=== PATIENT | male | born 1955 | race Caucasian/White ===

== ENCOUNTER 2022-10-13 14:50 | Outpatient (OUT) | payer MEDICARE, SELFPAY ==
--- NOTE | 2022-10-13 | ECG_ITS ---
[facility] Test Date: 2022-10-13 Pat Name: ANTONIO ZEPEDA Department: Room: - Gender: Male [employer]: : 1955 Requested By: BENNETT ZIMMERMAN Order Number: [id number] Reading MD: NAZARIO CRAVEN Measurements Intervals [place] Rate: 82 P: NM: 160 QRS: -81 QRSD: 156 T: 49 QT: 385 QTc: 450 Interpretive Statements Sinus rhythm MARKED LEFT AXIS DEVIATION [QRS AXIS < -30] RIGHT BUNDLE BRANCH BLOCK [120+ ms QRS DURATION, UPRIGHT V1, 40+ ms S IN I/aVL/V4/V5/V6] No previous ECG available for comparison Electronically Signed On 10-14-2022 7:02:53 EDT by NAZARIO CRAVEN
[2022-10-13 15:48] LABS: Thyroid Stimulating Hormone 0.212 uIU/mL (0.358-3.740)
[2022-10-13 16:15] LABS: Free T4 1.29 ng/dL (0.76-1.46)
== END 2022-10-13 14:51 | disposition home or self-care (01) ==
LOC: CARD 14:54
PROVIDERS: PCP Family Medicine; Visit Provider Family Medicine
DX: I49.9 Cardiac arrhythmia, unspecified (principal); E03.9 Hypothyroidism, unspecified
CPT/HCPCS: 36415; 84439; 84443; 93005

== ENCOUNTER 2023-02-17 07:53 | Outpatient (OUT) | payer MEDICARE, SELFPAY ==
--- NOTE | 2023-02-17 07:57 | US_ITS ---
The [address] [address] Patient Name: ANTONIO ZEPEDA MRN: [id number] date: 1955 Sex: M Assigned Patient Location: US Current Patient Location: US Accession/Order Number: [id number] Exam Date: 02/17/2023 08:00 Report Date: 02/17/2023 08:19 At the request of: BENNETT ZIMMERMAN Procedure: US abdomen limited EXAM: US abdomen limited HISTORY: . Abdominal Mass Right Lower Quadrant R19.03 . COMPARISON: None. TECHNIQUE: Grayscale and color imaging was performed FINDINGS: Scanning of the soft tissues of the right lower quadrant regional to the patient's area of concern demonstrates no discrete solid or cystic mass. No architectural distortion is noted. US/US abdomen limited IMPRESSION: No discrete masses noted ultrasonographically in the right lower quadrant in the soft tissues regional to the patient's area of concern. Electronically authenticated by: RENEE GIBBS Date: 02/17/2023 08:19
== END 2023-02-17 07:54 | disposition home or self-care (01) ==
LOC: US 07:54
PROVIDERS: PCP Family Medicine; Visit Provider Family Medicine
DX: R19.03 Right lower quadrant abdominal swelling, mass and lump (principal)
CPT/HCPCS: 76705

== ENCOUNTER 2023-04-22 07:57 | Outpatient (OUT) | payer MEDICARE, SELFPAY ==
--- OUTSIDE RECORDS SUMMARY | 2023-04-22 08:03 | XMS_ITS | CCD ---
Author Name Unknown Address [address] [facility] [address] [place] [address] Organization [facility] Care Team Providers Care Water Proofer Name Role Phone Mian Merchant Unavailable Cheryl Zimmerman Unavailable DR CHERYL ZIMMERMAN Admitting Unavailable ELSIE, DR CHERYL Jaquez Attending Unavailable ELSIE, DR CHERYL Jaquez Primary Care Unavailable ELSIE, DR CHERYL Jaquez Consulting Unavailable ELSIE, DR CHERYL Jaquez Admitting Unavailable ZIMMERMAN, DR CHERYL Jaquez Attending Unavailable ELSIE, DR CHERYL Jaquez Primary Care Unavailable ELSIE, DR CHERYL Jaquez Consulting Unavailable MAPUS, TONDRA Admitting Unavailable MAPUSMIAN Attending Unavailable ELSIE, DR CHERYL Jaquez Primary Care Unavailable MAPUS, TONDRA Consulting Unavailable Cheryl Zimmerman MD Primary Care Provider CHERYL ZIMMERMAN Referring Unavailable CHERYL ZIMMERMAN Primary Care Unavailable MD Cheryl Zimmerman Primary Care Provider WILFREDO Merchant Attending Provider [phone] Mian Merchant Attending Unavailable Mian Merchant Admitting Unavailable Cheryl Zimmerman Primary Care Unavailable Allergies Allergy Classification Reported Allergen(s) Allergy Type Date of Onset Reaction(s) Facility (20 sources) [facility] Blue 1 Drug allergy Unknown [facility] Other (2 sources) atorvastatin; Translations: [ATORVASTATIN] Drug Allergy 6 [facility] (1 source) Iodine (And Iodine Containting Drugs) Drug allergy (disorder) 3 [facility] (9 sources) dulaglutide Drug Allergy 3 [facility] (1 source) atorvastatin Drug Allergy 6 [facility] (2 sources) Iodinated Contrast Media; Translations: [IODINATED CONTRAST MEDIA] Propensity to adverse reactions to drug 6 [facility] (2 sources) blue dye; Translations: [blue dye] Allergy to substance [address] [facility] (1 source) dulaglutide Drug Allergy [address] [facility] Medications Current Medications Medication Drug Class(es) Dates Sig (Normalized) Sig (Original) apixaban 5 mg oral tablet (8 sources) Factor Xa Inhibitor Start: 10-13-2022 take 1 tablet by mouth every twelve hours Eliquis 5 MG 1 tablet Orally Twice a day for 28 days samples Sep, Active aspirin 81 mg delayed release oral tablet (20 sources) Platelet Aggregation Inhibitor, Nonsteroidal Anti-inflammatory Drug take 1 tablet by mouth in the morning aspirin 81 mg Take 1 tablet (81 mg total) by mouth in the morning. 0 Active take 1 tablet by mouth once benny y Aspir-Low 81 MG 1 tablet Orally Once a day Active bumetanide 2 mg oral tablet (10 sources) Loop Diuretic Start: 09-03-2022 End: 03-20-2024 take 1 tablet by mouth once daily bumetanide (BUMEX) 2 mg tablet Take 1 tablet (2 mg total) by mouth daily for 360 days. 90 tablet 3 03/26/2023 03/20/2024 Active carvedilol 12.5 mg oral tablet (20 sources) alpha-Adrenergic Jewels, beta-Adrenergic Jewels Start: 04-01-2021 take 1 tablet by mouth twice daily carvediloL (COREG) 12.5 mg tablet TAKE 1 TABLET BY MOUTH TWICE A DAY 180 tablet 0 04/01/2021 Active take 1 tablet by brian th every twelve hours Carvedilol 6.25 MG 1 tablet with food Orally Twice a day for 90 days Active cholecalciferol 0.05 mg oral capsule (4 sources) Vitamin D take 1 capsule by mouth in the morning cholecalciferol, vitamin D3, 2,000 units capsule Take 1 capsule (2,000 Units total) by mouth in the morning. 0 Active take 1 capsule by mo ut every twenty-four hours Vitamin D 50 MCG (1999 UT) 1 capsule Orally Once a day Active cinnamon bark 500 mg oral capsule (1 source) take 2 capsules by mouth in the morning cinnamon bark 500 mg capsule Take 2 capsules (1,000 mg total) by mouth in the morning. 0 Active Dexcom G6 Sensor - (20 sources) Start: 01-07-20 21 Dexcom G6 Sensor - as directed subcutaneously change every 10 days for 90 day(s) E11.29 Dec, Active DEXCOM G6 SENSOR device (1 source) Start: 03-25-19 22 DEXCOM G6 SENSOR device Dexcom G6 Transmitter - (20 sources) Start: 01-07-20 21 Dexcom G6 Transmitter - as directed SQ change every 90 days for 90 day(s) Dec, Active 0.5 ML dulaglutide 6 MG/ML Auto-Injector [Trulicity] (19 sources) GLP-1 Receptor Agonist Start: 10-22-19 23 inject 3 mg by subcutaneous injection every week Trulicity 3 MG/0.5ML 3mg Subcutaneous once weekly for 84 days Sep, Active Start: 08-22-2019 TRULICITY 1.5 mg/0.5 mL pen injector INJECT ONE DOSE WEEKLY 0 08/22/2019 Active inject 3 mg by subcu taneous injection every week Trulicity 3 MG/0.5ML 3mg Subcutaneous once weekly for 84 days Active Trulicity 3 MG/0 .5ML as directed Subcutaneous once weekly Active Trulicity 3 MG/0 .5ML as directed Subcutaneous weekly for 84 days Not-Taking Trulicity 3 MG/0 .5ML as directed Subcutaneous weekly for 84 days Active inject 1.5 mg by sub cutaneous injection every week Trulicity 3 MG/0.5ML as directed Subcutaneous weekly for 84 days stop trulicity 1.5mg dose Active empagliflozin 10 mg oral tablet (20 sources) Sodium-Glucose Cotransporter 2 Inhibitor Start: 12-13-2018 take 1 tablet by mouth in the morning JARDIANCE 10 mg tablet tablet Take 1 tablet (10 mg total) by mouth in the morning. 3 12/13/2018 Active fenofibric acid 135 mg delayed release oral capsule (20 sources) Peroxisome Proliferator Receptor alpha Agonist take 1 capsule by mouth every twenty-four hours Fenofibric Acid 135 MG 1 capsule Orally Once a day for 90 days Active Fish Oils (20 sources) take 1 capsule by mouth once daily Fish Oil 1000 MG 1 capsule Orally Once a day Active 3 ml insulin aspart, human 100 unt/ml pen injector (20 sources) Insulin Analog Start: 12-24-2020 NovoLOG FlexPen 100 UNIT/ML expect up to 30 units/day Subcutaneous tid for 90 day(s) ICR 1:10 ac tid plus corrective scale 1:40 ac tid. Nov, Active insulin aspart ( NOVOLOG FLEXPEN U-100 INSULIN SUBQ) Inject under the skin. Sliding scale with meals 0 Active NovoLOG FlexPen 100 UNIT/ML expect up to 50 units/day Subcutaneous as directed for 90 days ICR 1:5 ac tid. Corrective scale 1:20 ac tid, hs if >200 half dose. Active NovoLOG FlexPen 100 UNIT/ML expect up to 40 units/day Subcutaneous tid for 90 day(s) ICR 1:6 ac tid plus corrective scale 1:40 ac tid. Active insulin degludec (1 source) Insulin Analog inject 40 [IU] by subcutaneous injection once daily at breakfast insulin degludec (TRESIBA FLEXTOUCH U-100 SUBQ) Inject 40 Units under the skin daily with breakfast. 0 Active levothyroxine sodium 0.175 mg oral tablet (20 sources) l-Thyroxine Start: 06-13-19 23 take 1 tablet by mouth once daily in the morning Levothyroxine Sodium 175 MCG 1 tablet in the morning on an empty stomach Orally Once a day for 90 days May, Active Start: 04-12-2017 levothyroxine (SYNTHROID, LEVOTHROID) 175 MCG tablet Take 137 mcg by mouth in the morning. 0 04/12/2017 Active Levothyroxine So dium 175 MCG TAKE 1 TABLET BY MOUTH EVERY DAY IN THE MORNING ON EMPTY STOMACH FOR 90 DAYS for 90 Active take 1 tablet by brian th every twenty-four hours Synthroid 137 MCG 1 tablet Orally Once a day Active lisinopril 10 mg oral tablet (20 sources) Angiotensin Converting Enzyme Inhibitor take 1 tablet by mouth in the morning lisinopril (PRINIVIL,ZESTRIL) 10 mg tablet Take 1 tablet (10 mg total) by mouth in the morning. 0 Active multivitamin capsule (1 source) take 3 capsules by mouth in the morning multivitamin capsule Take 3 capsules by mouth in the morning. 0 Active NON FORMULARY (1 source) NON FORMULARY Fl ax seed oil 1200 mg daily 0 Active omega-3/dha/epa/dpa/ fish oil (OMEGA-3 2100 ORAL) (1 source) omega-3/dha/epa/ dpa/fish oil (OMEGA-3 2100 ORAL) Take by mouth. 0 Active One Touch Ultra Mini Glucometer 1 meter (8 sources) One Touch Ultra Mini Glucometer 1 meter as directed E11,9 as directed Active simvastatin 20 mg oral tablet (20 sources) HMG-CoA Reductase Inhibitor Start: 018 take 1 tablet by mouth once daily simvastatin (ZOCOR) 20 mg tablet Take 1 tablet (20 mg total) by mouth once daily. 90 tablet 0 05/28/2017 Active tamsulosin hydrochloride 0.4 mg oral capsule (20 sources) alpha-Adrenergic Jewels Start: 018 take 1 capsule by mouth every twenty-four hours in the morning tamsulosin (FLOMAX) 0.4 mg capsule,extended release 24hr Take 1 capsule (0.4 mg total) by mouth in the morning. 0 05/31/2017 Active take 1 capsule by mouth once yady ly Tamsulosin HCl 0.4 MG 1 capsule Orally Once a day for 90 days Active Tresiba U-100 solution injectable 3ml/300 units (20 sources) inject 44 [IU] by subcutaneous injection once daily at bedtime Tresiba U-100 solution injectable 3ml/300 units 44 units SQ qhs for 90 days Active inject 50 [IU] by ariza bcutaneous injection once daily at bedtime Tresiba U-100 solution injectable 3ml/300 units 50 units SQ qhs for 90 days Active inject 40 [IU] by ariza bcutaneous injection once daily at bedtime Tresiba U-100 solution injectable 3ml/300 units 40 units SQ qhs for 90 days (titrate up to 44 units/day) Active inject 32 [IU] by ariza bcutaneous injection once daily at bedtime Tresiba U-100 solution injectable 3ml/300 units 32 units SQ qhs for 90 days (titrate up to 40 units/day) Active inject 32 [IU] by ariza bcutaneous injection once daily at bedtime Tresiba U-100 solution injectable 3ml/300 units 32 units SQ qhs for 90 days (expect up to 50/day) Active Vitamin D 50 MCG (1999 UT) (18 sources) take 1 capsule by mo uth once daily Vitamin D 50 MCG (1999 UT) 1 capsule Orally Once a day Active Completed/Discontinued Medications Medication Drug Class(es) Dates Sig (Normalized) Sig (Original) Accu-Chek Guide - (8 sources) Accu-Chek Guide - as directed SQ tid qac/ hs for 90 Not-Taking Accu-Chek Guide w/Device (8 sources) Start: 02-24-2018 Accu-Chek Guide w/Device as directed SQ Daily for 365 days Jan, Not-Taking Freestyle Basim 14 day sensor (7 sources) Start: 01-06-2021 Freestyle Basim 14 day sensor as directed SQ change every 14 days for 30 day(s) Dec, Not-Taking Start: 01-06-2021 Freestyle Libr e 14 day sensor as directed SQ change every 14 days for 30 day(s) Dec, Active FreeStyle Basim [place] - (8 sources) Start: 03-14-2019 FreeStyle Libr e [place] - as directed use with 14 days sensor check glucose with reader ac, hs, prn for 365 days pt has coupon card Mar, Not-Taking FreeStyle Basim Sensor (8 sources) Start: 03-14-2019 FreeStyle Libr e Sensor use with basim reader SQ change q 14 days, check glucose ac, hs and prn for 30 day(s) pt has coupon card Mar, Not-Taking Problems Active Problems Problem Classification Problem Date Documented Da te Episodic/Chronic Abdominal pain (1 source) Right lower quadrant pain Episodic Administrative/social admission (20 sources) Dietary management surveillance; Translations: [Dietary counseling and surveillance] Onset: 12-24-2020 Resolved: 07-10-2021 Episodic Cardiac dysrhythmias (18 sources) Cardiac arrhythmia; Translations: [Other specified cardiac arrhythmias] Onset: 01-17-2018 Chronic Chronic kidney disease (20 sources) Chronic kidney disease stage 3; Translations: [Chronic kidney disease, stage 3 (moderate)] Onset: 12-26-2013 Chronic Chronic obstructive pulmonary disease and bronchiectasis (8 sources) Bronchitis; Translations: [Bronchitis, not specified as acute or chronic] Episodic Coronary atherosclerosis and other heart disease (9 sources) Atherosclerosis of coronary artery without angina pectoris; Translations: [Atherosclerotic heart disease of [place] coronary artery without angina pectoris] Onset: 02-17-2013 08-08-2020 Chronic Diabetes mellitus with complications (20 sources) Disorder of kidney due to diabetes mellitus; Translations: [Type 2 diabetes mellitus with other diabetic kidney complication] Onset: 12-24-2020 Resolved: 07-10-2021 Chronic Disorders of lipid metabolism (20 sources) Hyperlipidemia; Translations: [Hyperlipidemia, unspecified] Onset: 09-29-2006 Resolved: 07-10-2021 Chronic Essential hypertension (20 sources) Hypertensive disorder; Translations: [Essential (primary) hypertension] Onset: 12-24-2020 Resolved: 07-10-2021 Chronic Hypertension with complications and secondary hypertension (1 source) Benign hypertensive heart AND renal disease; Translations: [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 failure, with stage 1 through stage 4 chronic kidney disease, or unspecified chronic kidney disease] Onset: 02-17-2013 08-08-2020 Chronic Immunizations and screening for infectious disease (8 sources) Vaccination given; Translations: [Encounter for immunization] Episodic Malaise and fatigue (8 sources) Fatigue; Translations: [Other fatigue] Episodic Nausea and vomiting (1 source) Nausea with vomiting, unspecified Episodic Nonspecific chest pain (8 sources) Chest pain; Translations: [Other chest pain] Episodic Nutritional deficiencies (20 sources) Vitamin D deficiency; Translations: [Vitamin D deficiency, unspecified] Chronic Other aftercare (20 sources) Long-term current use of insulin; Translations: [snf (current) use of insulin] Episodic Other aftercare (6 sources) termination clerk (current) use of insulin; Translations: [termination clerk current use of insulin Z79.4] Onset: 12-24-2020 Resolved: 07-10-2021 Episodic Other and unspecified benign neoplasm (8 sources) History of polyp of colon; Translations: [Personal history of colonic polyps] Episodic Other circulatory disease (8 sources) Elevated blood-pressure reading without diagnosis of hypertension; Translations: [Elevated blood-pressure reading, without diagnosis of hypertension] Episodic Other circulatory disease (1 source) Nonspecific low blood-pressure reading Episodic Other gastrointestinal disorders (1 source) Diarrhea, unspecified Episodic Other gastrointestinal disorders (1 source) Right lower quadrant abdominal swelling, mass and lump Episodic Other lower respiratory disease (1 source) Other forms of dyspnea; Translations: [OTHER FORMS OF DYSPNEA] Onset: 06-17-2022 Episodic Other nervous system disorders (11 sources) Disorder of muscle; 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] Chronic Other nervous system disorders (1 source) 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 Chronic Other nervous system disorders (8 sources) Ulnar neuropathy of right arm; Translations: [Lesion of ulnar nerve, right upper limb] Chronic Other nervous system disorders (1 source) Lesion of ulnar nerve, right upper limb Chronic Other nutritional; endocrine; and metabolic disorders (20 sources) Obesity; Translations: [Obesity, unspecified] Chronic Other nutritional; endocrine; and metabolic disorders (20 sources) Obese class II; Translations: [Body mass index (BMI) 35.0-35.9, adult] Chronic Other nutritional; endocrine; and metabolic disorders (20 sources) Obese class I; Translations: [Body mass index (BMI) 34.0-34.9, adult] Chronic Other nutritional; endocrine; and metabolic disorders (4 sources) Body mass index (BMI) 34.0-34.9, adult; Translations: [BMI 34.0-34.9,adult Z68.34] Onset: 12-24-2020 Resolved: 12-24-2020 Chronic Other nutritional; endocrine; and metabolic disorders (2 sources) Body mass index (BMI) 33.0-33.9, adult Onset: 04-01-2021 Resolved: 07-10-2021 Chronic Other nutritional; endocrine; and metabolic disorders (1 source) Body mass index 30+ - obesity; Translations: [Obesity, unspecified] Onset: 05-23-2021 05-23-2021 Chronic Residual codes; unclassified (1 source) Generalized edema; Translations: [GENERALIZED EDEMA] Onset: 06-17-2022 Episodic Residual codes; unclassified (1 source) Pain, unspecified; Translations: [Pain, unspecified] Onset: 03-25-2023 Episodic Thyroid disorders (20 sources) Acquired hypothyroidism; Translations: [Hypothyroidism, unspecified] Onset: 06-17-2022 Chronic Unclassified (1 source) CHRN KIDNEY DISEASE STG 3 UNSP; Translations: [CHRN KIDNEY DISEASE STG 3 UNSP] Onset: 06-17-2022 Past or Other Problems Problem Classification Problem Date Documented Date Episodic/Chronic Cardiac dysrhythmias (1 source) Palpitations; Translations: [Palpitations] Onset: 11-16-2022 11-16-2022 Episodic Conditions associated with dizziness or vertigo (1 source) Dizziness; Translations: [Dizziness and giddiness] Onset: 01-11-2018 01-11-2018 Episodic Other non-traumatic joint disorders (8 sources) Shoulder joint pain; Translations: [Pain in unspecified shoulder] Onset: 12-26-2013 Episodic Other screening for suspected conditions (not mental disorders or infectious disease) (2 sources) Electrocardiogram abnormal; Translations: [Abnormal electrocardiogram [ECG] [EKG]] Onset: 03-06-2015 Resolved: 08-08-2020 06-11-2017 Episodic Results Test Name Value Interpretation Reference Range Facility A1C with Estimated Average G luon 02-01-2023 Glucose [Mass/Vol] 160 mg/dL Normal [facility] Comment on above: Order Comment: Reaso n for Exam Type 2 diabetes mellitus with hyperglycemia Result Comment: PERF ORMED BY: [place] [address] PATHOLOGIST SQUEEZER OPERATOR HARI ANGEL M.D. Performed By: #### A 1C [facility] eA #### [address] HbA1c (Bld) [Mass fraction] 7.2 % High 4.3-5.[address] [facility] Comment on above: Order Comment: Reaso n for Exam Type 2 diabetes mellitus with hyperglycemia Result Comment: Incr eased risk for diabetes: 5.7 - 6.4 diabetes: >6.4 glycemic control for adults with diabetes: <7.0 Performed By: #### A 1C [facility] eA #### [address] HbA1c (Bld) [Mass fraction] 7.200 % High 4.3-5.6 % [facility] Other HbA1c (Bld) [Mass fraction] 160 mg/dL [facility] Other Glucose - FINGER STICKon Glucose [Mass/Vol] 127 mg/dL [facility] Other Glucose mean value [Mass/vol ume] in Blood Estimated from glycated hemoglobinOrdered By: Mian Merchant on 02-01-2023 Average glucose Estimated from glycated hemoglobin (Bld) [Mass/Vol] 160 mg/dL [facility] Hemoglobin A1c percentageOrd ered By: Mian Merchant on 02-01-2023 HbA1c (Bld) [Mass fraction] 7.2 % 4.3-5.[address] [facility] Comment on above: Increased risk for d iabetes: 5.7 - 6.4diabetes: >6.4glycemic control for adults with diabetes: <7.0 Glucose - FINGER STICKon Glucose [Mass/Vol] 96 mg/dL [facility] Other A1C HEMOGLOBINon 10-21-2022 HbA1c (Bld) [Mass fraction] 13.1 % [facility] Other Glucose - FINGER STICKon Glucose [Mass/Vol] 304 mg/dL [employer] Other HbA1c (Bld) [Mass fraction]o n 10-21-2022 A1C HEMOGLOBIN [facility] Other FREE T4on 07-13-2022 Free T4 [Mass/Vol] 1.38 ng/dL Normal 0.76-1.46 [facility] Comment on above: Performed By: #### F T4 #### [facility] [address] [place] [address] Dr. Noreen Tao PROF CHEM 8 (BAS METB)on Anion gap [Moles/Vol] 12.8 mmol/L Normal [facility] Comment on above: Performed By: #### B MP, TSH #### [facility] [address] [place] [address] Dr. Noreen Tao Calcium [Mass/Vol] 9.3 mg/dL Normal 8.5-10.1 [facility] Comment on above: Performed By: #### B MP, TSH #### [facility] [address] [place] [address] Dr. Noreen Tao Chloride [Moles/Vol] 106 mmol/L Normal 98-107 [facility] Comment on above: Performed By: #### B MP, TSH #### [facility] [address] [address] [address] Noreen Tao CO2 [Moles/Vol] 30.7 mmol/L Normal 21.0-32.0 [facility] Comment on above: Performed By: #### B MP, TSH #### [facility] [address] [place] [address] Dr. Noreen Tao Creatinine [Mass/Vol] 1.45 mg/dL Critically high 0.70-1.30 [facility] Comment on above: Performed By: #### B MP, TSH #### [facility] [address] [place] [address] Dr. Noreen Tao EGFR-AF [place]IZ[place] 59 mL/min/1.73m2 Critically low >=60 [facility] Comment on above: Performed By: #### B PAVITHRA, TSH #### [facility] [address] [place] [address] Dr. Noeren Tao EGFR-NON AF CITIZEN [place] 49 mL/min/1.73m2 Critically low >=60 [facility] Comment on above: Performed By: #### B MP, TSH #### [facility] [address] [place] [address] Dr. Noreen Tao Glucose [Mass/Vol] 129 mg/dL Critically high 74-106 [facility] Comment on above: Performed By: #### B PAVITHRA, TSH #### [facility] [address] [place] [address] Dr. Noreen Tao Potassium [Moles/Vol] 4.5 mmol/L Normal 3.5-5.1 [facility] Comment on above: Performed By: #### B MP, TSH #### [facility] [address] [place] [address] Dr. Noreen Tao Sodium [Moles/Vol] 145 mmol/L Normal 136-145 [facility] Comment on above: Performed By: #### B MP, TSH #### [facility] [address] [place] [address] Dr. Noreen Tao Urea nitrogen [Mass/Vol] 20.0 mg/dL Critically high 7.0-18.0 [facility] Comment on above: Performed By: #### B PAVITHRA, TSH #### [facility] [address] [address] [address] Noreen Tao Urea nitrogen/Creatinine [Mass ratio] 13.8 mg/mg Normal [facility] Comment on above: Performed By: #### B MP, TSH #### [facility] [address] [address] [address] Noreen Tao TSHon 07-13-2022 TSH 2.373 uIU/mL Normal 0.358-3.740 [facility] Comment on above: Performed By: #### B MP, TSH #### [facility] [address] [place] [address] Dr. Noreen Tao LIPID PROFILEon 07-09-2022 CHOL-HDL RATIO NORM SEE BELOW Normal [facility] Comment on above: Result Comment: 3.3 - 4.4 LOW RISK 4.4 - 7.1 AVERAGE RISK 7.1 - 11.0 MODERATE RISK >11.0 HIGH RISK Performed By: #### B MP, TSH #### [facility] [address] [place] [address] Dr. Noreen Tao Cholesterol [Mass/Vol] 120 mg/dL Normal <=200 [facility] Comment on above: Performed By: #### B PAVITHRA, TSH #### [facility] [address] [place] [address] Dr. Noreen Tao Cholesterol in HDL [Mass/Vol] 35 mg/dL Critically low 40-60 [facility] Comment on above: Performed By: #### B PAVITHRA, TSH #### [facility] [address] [address] [address] Noreen Tao Cholesterol in LDL [Mass/Vol] 60.0 mg/dL Normal [facility] Comment on above: Performed By: #### B PAVITHRA, TSH #### [facility] [address] [place] [address] Dr. Noreen Tao Cholesterol.total/Cho lesterol in HDL [Mass ratio] 3.4 {ratio} Normal [facility] Comment on above: Performed By: #### B MP, TSH #### [facility] [address] [address] [address] Noreen Tao HDL NORMAL > or = 60 mg/dl - LOW CARDIOVASCULAR RISK <40 mg/dl - HIGH CARDIOVASCULAR RISK Normal [facility] Comment on above: Performed By: #### B MP, TSH #### [facility] [address] [address] [address] Noreen Tao LDL CALC NORMAL SEE BELOW Normal [facility] Comment on above: Result Comment: <100 mg/dl OPTIMAL 100 - 129 mg/dl NEAR OR ABOVE OPTIMAL 130 - 159 mg/dl BORDERLINE HIGH 160 - 189 mg/dl HIGH >190 mg/dl VERY HIGH Performed By: #### B MP, TSH #### [facility] [address] [address] [address] Noreen Tao Triglyceride [Mass/Vol] 125 mg/dL Normal <=150 [facility] Comment on above: Performed By: #### B MP, TSH #### [facility] [facility] [address] [address] [address] Noreen Tao VLDL CALC 25.0 mg/dL Normal [facility] Comment on above: Performed By: #### B MP, TSH #### [facility] [address] [address] [address] Noreen Tao MICROALB CREAT RATIO RANDOMo n 07-09-2022 mALB 2.0 mg/dL Normal <=30.0 [facility] Comment on above: Performed By: #### M CRR #### [facility] [address] [address] [address] Noreen Tao MALB CR RATIO 24.3 mg/g Normal 0.0-29.9 [facility] Comment on above: Performed By: #### M CRR #### [facility] [address] [address] [address] Noreen Tao MALB CR RATIO RANGE SEE BELOW Normal [facility] Comment on above: Result Comment: NO M ICROALBUMINURIA 0-29 MG/G CLINICAL MICROALBUMINURIA 30-300 MG/G MACROALBUMINURIA >300 MG/G Performed By: #### M CRR #### [facility] [address] [address] [address] Noreen Tao URINE CREAT 82.16 mg/dL Normal 20.00-300.00 [facility] Comment on above: Performed By: #### M CRR #### [facility] [address] [place] [address] Dr. Noreen Tao PROF 14(COMP METB)on 023 Albumin [Mass/Vol] 3.6 g/dL Normal 3.4-5.0 [facility] Comment on above: Performed By: #### C MP, LIPID #### [facility] [address] [place] [address] Dr. Noreen Tao Albumin/Globulin [Mass ratio] 0.8 {ratio} Normal [facility] Comment on above: Performed By: #### C MP, LIPID #### [facility] [address] [place] [address] Dr. Noreen Tao ALP [Catalytic activity/Vol] 81 U/L Normal 46-116 [facility] Comment on above: Performed By: #### C MP, LIPID #### [facility] [address] [place] [address] Dr. Noreen Tao ALT [Catalytic activity/Vol] 60 U/L Normal 16-63 [facility] Comment on above: Performed By: #### C MP, LIPID #### [facility] [address] [place] [address] Dr. Noreen Tao Anion gap [Moles/Vol] 10.2 mmol/L Normal [facility] Comment on above: Performed By: #### C MP, LIPID #### [facility] [address] [place] [address] Dr. Noreen Tao AST [Catalytic activity/Vol] 27 U/L Normal 15-37 [facility] Comment on above: Performed By: #### C MP, LIPID #### [facility] [address] [place] [address] Dr. Noreen Tao Bilirubin [Mass/Vol] 0.8 mg/dL Normal 0.2-1.0 [facility] Comment on above: Performed By: #### C MP, LIPID #### [facility] [address] [place] [address] Dr. Noreen Tao Calcium [Mass/Vol] 9.2 mg/dL Normal 8.5-10.1 [facility] Comment on above: Performed By: #### C MP, LIPID #### [facility] [address] [place] [address] Dr. Noreen Tao Chloride [Moles/Vol] 106 mmol/L Normal 98-107 [facility] Comment on above: Performed By: #### C MP, LIPID #### [facility] [address] [place] [address] Dr. Noreen Toa CO2 [Moles/Vol] 30.1 mmol/L Normal 21.0-32.0 [facility] Comment on above: Performed By: #### C MP, LIPID #### [facility] [address] [place] [address] Dr. Noreen Tao Creatinine [Mass/Vol] 1.50 mg/dL Critically high 0.70-1.30 [facility] Comment on above: Performed By: #### C MP, LIPID #### [facility] [address] [place] [address] Dr. Noreen Tao EGFR-AF [place]IZ[place] 57 mL/min/1.73m2 Critically low >=60 [facility] Comment on above: Performed By: #### C MP, LIPID #### [facility] [address] [place] [address] Dr. Noreen Tao EGFR-NON AF CITIZEN [place] 47 mL/min/1.73m2 Critically low >=60 [facility] Comment on above: Performed By: #### C MP, LIPID #### [facility] [address] [place] [address] Dr. Noreen Tao Globulin (S) [Mass/Vol] 4.7 g/dL Normal [facility] Comment on above: Performed By: #### C MP, LIPID #### [facility] [address] [place] [address] Dr. Noreen Tao Glucose [Mass/Vol] 148 mg/dL Critically high 74-[address] [facility] Comment on above: Performed By: #### C MP, LIPID #### [facility] [address] [place] [address] Dr. Noreen Tao Potassium [Moles/Vol] 5.3 mmol/L Critically high 3.5-5.1 [facility] Comment on above: Performed By: #### C MP, LIPID #### [facility] [address] [place] [address] Dr. Noreen Tao Protein [Mass/Vol] 8.3 g/dL Critically high 6.4-8.2 [facility] Comment on above: Performed By: #### C MP, LIPID #### [facility] [address] [place] [address] Dr. Noreen Tao Sodium [Moles/Vol] 141 mmol/L Normal 136-145 [facility] Comment on above: Performed By: #### C MP, LIPID #### [facility] [address] [place] [address] Dr. Noreen Tao Urea nitrogen [Mass/Vol] 31.0 mg/dL Critically high 7.0-18.0 [facility] Comment on above: Performed By: #### C MP, LIPID #### [facility] [address] [place] [address] Dr. Noreen Tao Urea nitrogen/Creatinine [Mass ratio] 20.7 mg/mg Normal [facility] Comment on above: Performed By: #### C MP, LIPID #### [facility] [address] [place] [address] Dr. Noreen Tao BNPon 06-11-2022 Natriuretic peptide B (Bld) [Mass/Vol] 105.0 pg/mL Normal <=900.0 [facility] Comment on above: Performed By: #### B REPLENISHMENT ASSOCIATE, TSH, CMP #### [facility] [address] [place] [address] Dr. Noreen Tao CBC AUTO DIFFon 06-11-2022 BASO # 0.1 103/ul Normal 0.0-0.1 [facility] Comment on above: Performed By: #### C BC #### [facility] [address] [place] [address] Dr. Noreen Tao Basophils/100 WBC (Bld) 1.0 % Normal 0.2-2.0 [facility] Comment on above: Performed By: #### C BC #### [facility] [address] [place] [address] Dr. Noreen Tao EO # 0.2 103/ul Normal 0.0-0.7 [facility] Comment on above: Performed By: #### C BC #### [facility] [address] [place] [address] Dr. Noreen Tao Eosinophils/100 WBC (Bld) 3.1 % Normal 0.9-7.0 [facility] Comment on above: Performed By: #### C BC #### [facility] [address] [place] [address] Dr. Noreen Tao Erythrocyte distribution width (RBC) [Ratio] 14.1 % Normal 11.0-15.0 [facility] Comment on above: Performed By: #### C BC #### [facility] [address] [place] [address] Dr. Noreen Tao Hematocrit (Bld) [Volume fraction] 47.2 % Normal 42.0-54.0 [facility] Comment on above: Performed By: #### C BC #### [facility] [address] [place] [address] Dr. Noreen Tao Hemoglobin (Bld) [Mass/Vol] 15.3 g/dL Normal 14.0-18.0 [facility] Comment on above: Performed By: #### C BC #### [facility] [address] [place] [address] Dr. Noreen Tao IG # 0.01 10e3/ul Normal 0.00-0.03 [facility] Comment on above: Performed By: #### C BC #### [facility] [address] [place] [address] Dr. Noreen Tao IG % 0.2 % Normal 0.0-0.5 [facility] Comment on above: Performed By: #### C BC #### [facility] [address] [place] [address] Dr. Noreen Tao LYMPH # 2.3 103/ul Normal 1.2-3.8 [facility] Comment on above: Performed By: #### C BC #### [facility] [address] [place] [address] Dr. Noreen Tao Lymphocytes/100 WBC (Bld) 40.4 % Normal 20.5-60.0 [facility] Comment on above: Performed By: #### C BC #### [facility] [address] [place] [address] Dr. Noreen Tao MANUAL DIFF REQ NO Normal [facility] Comment on above: Performed By: #### C BC #### [facility] [address] [place] [address] Dr. Noreen Tao MCH (RBC) [Entitic mass] 28.9 pg Normal 25.9-34.0 [facility] Comment on above: Performed By: #### C BC #### [facility] [address] [place] [address] Dr. Noreen Tao MCHC (RBC) [Mass/Vol] 32.4 g/dL Normal 29.9-35.2 [facility] Comment on above: Performed By: #### C BC #### [facility] [address] [place] [address] Dr. Noreen Tao MCV (RBC) [Entitic vol] 89.2 fL Normal 80.0-94.0 [facility] Comment on above: Performed By: #### C BC #### [facility] [address] [place] [address] Dr. Noreen Tao MONO # 0.4 103/ul Normal 0.3-0.8 [facility] Comment on above: Performed By: #### C BC #### [facility] [address] [place] [address] Dr. Noreen Tao Monocytes/100 WBC (Bld) 7.2 % Normal 1.7-12.0 [facility] Comment on above: Performed By: #### C BC #### [facility] [address] [place] [address] Dr. Noreen Tao NEUT # 2.8 103/ul Normal 1.4-6.5 [facility] Comment on above: Performed By: #### C BC #### [facility] [address] [place] [address] Dr. Noreen Tao Neutrophils/100 WBC (Bld) 48.1 % Normal 43.0-75.0 [facility] Comment on above: Performed By: #### C BC #### [facility] [address] [place] [address] Dr. Noreen Tao Platelet mean volume (Bld) [Entitic vol] 9.6 fL Normal 9.5-13.5 [facility] Comment on above: Performed By: #### C BC #### [facility] [address] [place] [address] Dr. Noreen Tao PLT 182 103/ul Normal 150-450 [facility] Comment on above: Performed By: #### C BC #### [facility] [address] [place] [address] Dr. Noreen Tao RBC 5.29 106/ul Normal 4.70-6.10 [facility] Comment on above: Performed By: #### C BC #### [facility] [address] [place] [address] Dr. Noreen Tao WBC 5.7 103/ul Normal 4.0-11.0 [facility] Comment on above: Performed By: #### C BC #### [facility] [address] [place] [address] Dr. Noreen Tao FREE T4on 06-11-2022 Free T4 [Mass/Vol] 0.14 ng/dL Critically low 0.76-1.46 [facility] Comment on above: Performed By: #### F T4 #### [facility] [address] [place] [address] Dr. Noreen Tao PROF 14(COMP METB)on 023 Albumin [Mass/Vol] 4.0 g/dL Normal 3.4-5.0 [facility] Comment on above: Performed By: #### B REPLENISHMENT ASSOCIATE, TSH, CMP #### [facility] [address] [place] [address] Dr. Noreen Tao Albumin/Globulin [Mass ratio] 1.0 {ratio} Normal [facility] Comment on above: Performed By: #### B REPLENISHMENT ASSOCIATE, TSH, CMP #### [facility] [address] [address] [address] Noreen Tao ALP [Catalytic activity/Vol] 68 U/L Normal 46-116 [facility] Comment on above: Performed By: #### B REPLENISHMENT ASSOCIATE, TSH, CMP #### [facility] [address] [address] [address] Noreen Tao ALT [Catalytic activity/Vol] 235 U/L Critically high 16-63 [facility] Comment on above: Performed By: #### B REPLENISHMENT ASSOCIATE, TSH, CMP #### [facility] [address] [address] [address] Noreen Tao Anion gap [Moles/Vol] 8.2 mmol/L [facility] Comment on above: Performed By: #### B REPLENISHMENT ASSOCIATE, TSH, CMP #### [facility] [address] [address] [address] Noreen Tao AST [Catalytic activity/Vol] 141 U/L Critically high 15-37 [facility] Comment on above: Performed By: #### B REPLENISHMENT ASSOCIATE, TSH, CMP #### [facility] [address] [address] [address] Noreen Tao Bilirubin [Mass/Vol] 0.7 mg/dL Normal 0.2-1.0 [facility] Comment on above: Performed By: #### B REPLENISHMENT ASSOCIATE, TSH, CMP #### [facility] [address] [address] [address] Noreen Tao Calcium [Mass/Vol] 9.6 mg/dL Normal 8.5-10.1 [facility] Comment on above: Performed By: #### B REPLENISHMENT ASSOCIATE, TSH, CMP #### [facility] [address] [address] [address] Noreen Tao Chloride [Moles/Vol] 103 mmol/L Normal 98-107 [facility] Comment on above: Performed By: #### B REPLENISHMENT ASSOCIATE, TSH, CMP #### [facility] [address] [address] [address] Noreen Tao CO2 [Moles/Vol] 33.6 mmol/L Critically high 21.0-32.0 [facility] Comment on above: Performed By: #### B REPLENISHMENT ASSOCIATE, TSH, CMP #### [facility] [address] [place] [address] Dr. Noreen Tao Creatinine [Mass/Vol] 1.98 mg/dL Critically high 0.70-1.30 [facility] Comment on above: Performed By: #### B REPLENISHMENT ASSOCIATE, TSH, CMP #### [facility] [address] [place] [address] Dr. Noreen Tao EGFR-AF [place]IZ[place] 41 mL/min/1.73m2 Critically low >=60 [facility] Comment on above: Performed By: #### B REPLENISHMENT ASSOCIATE, TSH, CMP #### [facility] [address] [place] [address] Dr. Noreen Tao EGFR-NON AF CITIZ[place] 34 mL/min/1.73m2 Critically low >=60 [facility] Comment on above: Performed By: #### B REPLENISHMENT ASSOCIATE, TSH, CMP #### [facility] [address] [place] [address] Dr. Noreen Tao Globulin (S) [Mass/Vol] 4.0 g/dL Normal [facility] Comment on above: Performed By: #### B REPLENISHMENT ASSOCIATE, TSH, CMP #### [facility] [address] [place] [address] Dr. Noreen Tao Glucose [Mass/Vol] 65 mg/dL Critically low 74-106 [facility] Comment on above: Performed By: #### B REPLENISHMENT ASSOCIATE, TSH, CMP #### [facility] [address] [place] [address] Dr. Noreen Tao Potassium [Moles/Vol] 4.8 mmol/L Normal 3.5-5.1 [facility] Comment on above: Performed By: #### B REPLENISHMENT ASSOCIATE, TSH, CMP #### [facility] [address] [place] [address] Dr. Noreen Tao Protein [Mass/Vol] 8.0 g/dL Normal 6.4-8.2 [facility] Comment on above: Performed By: #### B REPLENISHMENT ASSOCIATE, TSH, CMP #### [facility] [address] [address] [address] Noreen Tao Sodium [Moles/Vol] 140 mmol/L Normal 136-145 [facility] Comment on above: Performed By: #### B REPLENISHMENT ASSOCIATE, TSH, CMP #### [facility] [address] [address] [address] Noreen Tao Urea nitrogen [Mass/Vol] 20.0 mg/dL Critically high 7.0-18.0 [facility] Comment on above: Performed By: #### B REPLENISHMENT ASSOCIATE, TSH, CMP #### [facility] [address] [address] [address] Noreen Tao Urea nitrogen/Creatinine [Mass ratio] 10.1 mg/mg Normal [facility] Comment on above: Performed By: #### B REPLENISHMENT ASSOCIATE, TSH, CMP #### [facility] [address] [address] [address] Noreen Tao TSHon 06-11-2022 TSH 77.632 uIU/mL Critically high 0.358-3.740 [facility] Comment on above: Performed By: #### B REPLENISHMENT ASSOCIATE, TSH, CMP #### [facility] [address] [address] [address] Noreen Tao A1C HEMOGLOBINon 07-10-2021 HbA1c (Bld) [Mass fraction] 7.5 % [employer] Other Glucose - [facility]INGER [facility] Glucose [Mass/Vol] 159 mg/dL [facility] Other HbA1c (Bld) [Mass fraction]o n 07-10-2021 A1C HEMOGLOBIN [employer] Other A1C HEMOGLOBINon 04-01-2021 HbA1c (Bld) [Mass fraction] 7.5 % [employer] Other Glucose - [facility] Glucose [Mass/Vol] 101 mg/dL [employer] Other HbA1c (Bld) [Mass fraction]o n 04-01-2021 A1C HEMOGLOBIN [employer] Other A1C HEMOGLOBINon 12-24-2020 HbA1c (Bld) [Mass fraction] 9.2 % [facility] Other Glucose - [facility] Glucose [Mass/Vol] 185 mg/dL [facility] Other HbA1c (Bld) [Mass fraction]o n 12-24-2020 A1C HEMOGLOBIN [facility] [employer] Other Vital Signs Date Time Vital Sign Value Performing Clinician Facility 02-08-2023 14:00-0500 Body height 170.18 cm Cheryl Zimmerman Other [facility] 02-08-2023 14:00-0500 Body mass index (BMI) [Ratio] 34.3 kg/m2 Cheryl Zimmerman Other [facility] Other 02-08-2023 14:00-0500 Body weight 99.34 kg Cheryl Zimmerman Other [facility] Other 02-08-2023 14:00-0500 Body weight 99.33 kg MD Cheryl Zimmerman Work Phone: [facility] 02-08-2023 14:00-0500 Diastolic blood pressure 83 mm[Hg] Cheryl Zimmerman Other [facility] 02-08-2023 14:00-0500 Systolic blood pressure 134 mm[Hg] Cheryl Zimmerman Other [facility] 02-01-2023 15:00-0500 Body height 170.18 cm Tondra Mapus Other [facility] 02-01-2023 15:00-0500 Body mass index (BMI) [Ratio] 34.72 kg/m2 Tondra Mapus Other [employer] Other 02-01-2023 15:00-0500 Body weight 100.56 kg Tondra Mapus Other [facility] 02-01-2023 15:00-0500 Diastolic blood pressure 45 mm[Hg] Tondra Mapus Other [facility] 02-01-2023 15:00-0500 Respiratory rate 18 /min Tondra Mapus Other [employer] Other 02-01-2023 15:00-0500 SaO2% (BldA) [Mass fraction] 96 % Tondra Mapus Other [employer] Other 02-01-2023 15:00-0500 Systolic blood pressure 86 mm[Hg] Tondra Mapus Other [facility] 11-26-2022 08:15-0400 Body height 170.18 cm Tondra Mapus Other [employer] Other 11-26-2022 08:15-0400 Body mass index (BMI) [Ratio] 34.52 kg/m2 Tondra Mapus Other [employer] Other 11-26-2022 08:15-0400 Body weight 99.97 kg Tondra Mapus Other [employer] Other 11-26-2022 08:15-0400 Diastolic blood pressure 72 mm[Hg] Tondra Mapus Other [employer] Other 11-26-2022 08:15-0400 Respiratory rate 18 /min Tondra Mapus Other [employer] Other 11-26-2022 08:15-0400 SaO2% (BldA) [Mass fraction] 99 % Tondra Mapus Other [employer] Other 11-26-2022 08:15-0400 Systolic blood pressure 110 mm[Hg] Tondra Mapus Other [employer] Other 10-21-2022 08:15-0400 Body height 170.18 cm Tondra Mapus Other [employer] Other 10-21-2022 08:15-0400 Body mass index (BMI) [Ratio] 34.53 kg/m2 Tondra Mapus Other [employer] Other 10-21-2022 08:15-0400 Body weight 100.02 kg Tondra Mapus Other [employer] Other 10-21-2022 08:15-0400 Diastolic blood pressure 69 mm[Hg] Tondra Mapus Other [employer] Other 10-21-2022 08:15-0400 Respiratory rate 18 /min Tondra Mapus Other [employer] Other 10-21-2022 08:15-0400 SaO2% (BldA) [Mass fraction] 96 % Tondra Mapus Other [employer] Other 10-21-2022 08:15-0400 Systolic blood pressure 103 mm[Hg] Tondra Mapus Other [employer] Other 10-13-2022 14:00-0400 Body height 170.18 cm Cheryl Zimmerman Other [employer] Other 10-13-2022 14:00-0400 Body mass index (BMI) [Ratio] 34.61 kg/m2 Cheryl Zimmerman Other [employer] Other 10-13-2022 14:00-0400 Body weight 100.25 kg Cheryl Zimmerman Other [employer] Other 10-13-2022 14:00-0400 Diastolic blood pressure 62 mm[Hg] Cheryl Zimmerman Other [employer] Other 10-13-2022 14:00-0400 Systolic blood pressure 116 mm[Hg] Cheryl Zimmerman Other [employer] Other 04-21-2022 15:00-0500 Body height 170.18 cm Cheryl Zimmerman Other [employer] Other 04-21-2022 15:00-0500 Body mass index (BMI) [Ratio] 36.18 kg/m2 Cheryl Zimmerman Other [employer] Other 04-21-2022 15:00-0500 Body weight 104.78 kg Cheryl Zimmerman Other [employer] Other 04-21-2022 15:00-0500 Diastolic blood pressure 80 mm[Hg] Cheryl Zimmerman Other [employer] Other 04-21-2022 15:00-0500 SaO2% (BldA) [Mass fraction] 99 % Cheryl Zimmerman Other [employer] Other 04-21-2022 15:00-0500 Systolic blood pressure 132 mm[Hg] Cheryl Zimmerman Other [employer] Other 07-10-2021 10:45-0400 Body height 170.18 cm Mian Merchant Other [employer] Other 07-10-2021 10:45-0400 Body mass index (BMI) [Ratio] 33.98 kg/m2 Tondra Mapus Other [employer] Other 07-10-2021 10:45-0400 Body weight 98.43 kg Tondra Mapus Other [employer] Other 07-10-2021 10:45-0400 Diastolic blood pressure 83 mm[Hg] Tondra Mapus Other [employer] Other 07-10-2021 10:45-0400 Respiratory rate 20 /min Tondra Mapus Other [employer] Other 07-10-2021 10:45-0400 SaO2% (BldA) [Mass fraction] 98 % Tondra Mapus Other [employer] Other 07-10-2021 10:45-0400 Systolic blood pressure 166 mm[Hg] Tondra Mapus Other [employer] Other 04-01-2021 10:15-0500 Body height 170.18 cm Tondra Mapus Other [employer] Other 04-01-2021 10:15-0500 Body mass index (BMI) [Ratio] 33.98 kg/m2 Tondra Mapus Other [employer] Other 04-01-2021 10:15-0500 Body weight 98.43 kg Tondra Mapus Other [employer] Other 04-01-2021 10:15-0500 Diastolic blood pressure 76 mm[Hg] Tondra Mapus Other [employer] Other 04-01-2021 10:15-0500 Respiratory rate 16 /min Tondra Mapus Other [employer] Other 04-01-2021 10:15-0500 SaO2% (BldA) [Mass fraction] 98 % Tondra Mapus Other [employer] Other 04-01-2021 10:15-0500 Systolic blood pressure 144 mm[Hg] Tondra Mapus Other [employer] Other 01-07-2021 09:30-0500 Body height 170.18 cm Tondra Mapus Other [employer] Other 01-07-2021 09:30-0500 Body mass index (BMI) [Ratio] 34.83 kg/m2 Tondra Mapus Other [employer] Other 01-07-2021 09:30-0500 Body weight 100.88 kg Tondra Mapus Other [employer] Other 01-07-2021 09:30-0500 Diastolic blood pressure 64 mm[Hg] Tondra Mapus Other [employer] Other 01-07-2021 09:30-0500 Respiratory rate 18 /min Tondra Mapus Other [facility] Other 01-07-2021 09:30-0500 SaO2% (BldA) [Mass fraction] 98 % Tondra Mapus Other [employer] Other 01-07-2021 09:30-0500 Systolic blood pressure 135 mm[Hg] Tondra Mapus Other [facility] Other 01-06-2021 10:30-0500 Body height 170.18 cm Tondra Mapus Other [facility] Other 01-06-2021 10:30-0500 Body mass index (BMI) [Ratio] 34.83 kg/m2 Tondra Mapus Other [facility] Other 01-06-2021 10:30-0500 Body weight 100.88 kg Tondra Mapus Other [facility] Other 01-06-2021 10:30-0500 Diastolic blood pressure 79 mm[Hg] Tondra Mapus Other [facility] Other 01-06-2021 10:30-0500 Respiratory rate 18 /min Tondra Mapus Other [facility] Other 01-06-2021 10:30-0500 SaO2% (BldA) [Mass fraction] 98 % Tondra Mapus Other [facility] Other 01-06-2021 10:30-0500 Systolic blood pressure 143 mm[Hg] Tondra Mapus Other [facility] Other 12-24-2020 09:15-0400 Body height 170.18 cm Tondra Mapus Other [facility] Other 12-24-2020 09:15-0400 Body mass index (BMI) [Ratio] 34.61 kg/m2 Tondra Mapus Other [facility] Other 12-24-2020 09:15-0400 Body weight 100.25 kg Tondra Mapus Other [facility] Other 12-24-2020 09:15-0400 Diastolic blood pressure 78 mm[Hg] Tondra Mapus Other [facility] Other 12-24-2020 09:15-0400 Respiratory rate 16 /min Tondra Mapus Other [facility] Other 12-24-2020 09:15-0400 SaO2% (BldA) [Mass fraction] 97 % Tondra Mapus Other [facility] Other 12-24-2020 09:15-0400 Systolic blood pressure 122 mm[Hg] Tondra Mapus Other [employer] Other Encounters Encounter Date Encounter Type Care Provider Facility Start: 03-26-2023 Refill Luna Prater RN [facility] Start: 03-25-2023 ambulatory CHERYL ZIMMERMAN [facility] Start: 03-17-2023 End: 03-17-2023 ambulatory Tondra Mapus Other [employer] Other Start: 03-17-2023 Telephone encounter Tondra Mapus [facility] Start: 02-25-2023 End: 02-25-2023 ambulatory Cheryl Zimmerman Other [employer] Other Start: 02-25-2023 Telephone encounter Cheryl Zimmerman [facility] Start: 02-08-2023 End: 02-08-2023 ambulatory Cheryl Zimmerman Other [employer] Other Start: 02-08-2023 Office outpatient vi sit 15 minutes Cheryl WRIGHT [facility] Start: 02-08-2023 End: 02-08-2023 Patient encounter procedure MD Cheryl Zimmerman Work Phone: Count Includes [facility] Work Phone: Start: 02-03-2023 End: 02-03-2023 ambulatory Tondra Mapus Other [employer] Other Start: 02-03-2023 Telephone encounter Tondra Mapus [facility] Start: 02-01-2023 End: 02-01-2023 Discharged Recurring MD [facility] Work Phone: Start: 02-01-2023 (DM) Diabetes Tondra Mapus [facility] Start: 02-01-2023 End: 02-02-2023 ambulatory MD Cehryl Zimmerman Work Phone: [employer] Other Start: 02-01-2023 End: 02-01-2023 Patient encounter procedure MD Cheryl Zimmerman Work Phone: Count Includes [facility] Work Phone: Start: 11-26-2022 (DM) Diabetes Tondra Mapus [facility] Start: 11-26-2022 End: 11-26-2022 ambulatory Tondra Mapus Other [facility] Other Start: 10-21-2022 (DM) Diabetes Tondra Mapus [facility] Start: 10-21-2022 End: 10-21-2022 ambulatory Tondra Mapus Other [facility] Other Start: 10-13-2022 End: 10-13-2022 ambulatory Cheryl Zimmerman Other [facility] Other Start: 10-13-2022 Office outpatient vi sit 25 minutes Cheryl Zimmerman [facility] Start: 07-13-2022 End: 07-14-[address] CHERYL ZIMMERMAN Facility:[facility] Start: 07-09-2022 End: 07-10-2022 ambulatory TONDRA MAPUS [facility] [employer] Other Start: 07-09-2022 Telephone encounter Tondrkatelynn Hernandez [facility] Start: 06-12-2022 End: 06-12-2022 ambulatory Cheryl Zimmerman Other [facility] Other Start: 06-12-2022 Telephone encounter Cheryl Zimmerman [facility] Start: 06-11-2022 End: 06-12-[address] CHERYL ZIMMERMAN Facility:[facility] Start: 05-01-2022 End: 05-01-2022 ambulatory Cheryl Zimmerman Other [facility] Other Start: 05-01-2022 Telephone encounter Cheryl Zimmerman [facility] Start: 04-21-2022 End: 04-21-2022 ambulatory Cheryl Zimmerman Other [facility] Other Start: 04-21-2022 Office outpatient vi sit 15 minutes Cheryl Zimmerman [facility] Start: 09-18-2021 Adult health examination Cheryl Zimmerman Other [facility] Other Start: 09-18-2021 Problem, abnormal examination Cheryl Zimmerman Other [facility] Other Start: 07-10-2021 (DM) Diabetes Tondra Mapus [facility] Start: 07-10-2021 End: 07-10-2021 ambulatory Tondra Mapus Other [facility] Other Start: 04-01-2021 (DM) Diabetes Tondra Mapus [facility] Start: 04-01-2021 End: 04-01-2021 ambulatory Tondra Mapus Other [facility] Other Start: 01-07-2021 End: 01-07-2021 ambulatory Mian Merchant Other [employer] Other Start: 01-07-2021 Nursing evaluation o f patient and report [facility] Start: 01-06-2021 End: 01-06-2021 ambulatory Mian Merchant Other [employer] Other Start: 01-06-2021 Nursing evaluation o f patient and report M[facility] Cross [facility] Start: 01-06-2021 [facility] Start: 12-24-2020 (DM) Diabetes Tondrkatelynn Merchant Count Includes [facility] Procedures Date Procedure Procedure Detail Performing Clinician Start: 10-04-2019 Colonoscopy Luna ascencio RN Start: 05-04-2017 Screening for malign ant neoplasm of colon Cheryl Zimmerman Other Plan of Treatment Date Care Activity Detail Author Start: 2024 Screening for malignant neoplasm of colon Colonoscopy [facility] Start: 12-30-2023 Adult BMI Screening Adult BMI Screening [facility] Start: 12-30-2023 Tobacco Screening Tobacco Screening [facility] Start: 04-14-2023 End: 04-14-2023 Patient encounter procedure 04/14/2023 2:30 PM EST Office Visit [facility] General Surgery [address] [place] [address] Elsy Rowe, [employer] [address] [place] [address] [facility] Start: 10-30-2022 COVID-19 Vaccine ( season) COVID-19 Vaccine () [facility] Start: 10-30-2022 Influenza vaccination Influenza Vaccine [facility] Start: 10-02-2020 Fall Risk Screening Fall Risk Screening [facility] Start: 10-02-2005 Administration of varicella zoster vaccine Zoster (Shingles) Vaccine (1 of 2) [facility] Start: 10-02-1974 DTaP,Tdap and Td Vaccines (1 - Tdap) DTaP,Tdap and Td Vaccines (1 - Tdap) [facility] Start: 10-02-1973 Adult BMI Follow Up Plan Adult BMI Follow Up Plan [facility] Start: 10-02-1973 Diabetic foot examination Diabetic Foot Exam [facility] Start: 1967 Depression Screening Depression Screening [facility] Start: 1955 Glaucoma screening Diabetic Ophthalmology Exam [facility] Start: 1955 Medicare Annual Wellness Visit Medicare Annual Wellness Visit [facility] Immunizations Immunization Date Immunization Notes Care Provider Dayanna winn 06-27-2020 COVID-19 Vaccine Ashley - Documentation Purposes Only Mian Merchant Other [facility] 12-05-2019 influenza virus vaccine, split virus (incl. purified surface antigen) Cheryl Zimmerman Other [employer] Other 12-05-2019 influenza virus vaccine, unspecified formulation MD Cheryl Zimmerman Work Phone: [facility] Payers Date Payer Category Payer Medicare AETNA MEDICARE A ETNA MEDICARE PLAN (HMO) [id number] 2022-Present [phone] [address] [place] [address] [id number] 2021 Private Health Insurance [id number] 2021 Unknown [id number] 2020 Blue Cross Blue Shield [id number] 2020 Unknown CHUY OSORIO OUT OF STATE PPO/TRUST [id number] 2020-Present [phone] [address] [place] [address] [id number] 2017 Self-pay [id number] 2006 [place] [id number] 1959 Medicare [id number] 1955 Unknown [id number] 1955 Unknown [id number] 1955 Unknown [id number] 1955 Unknown [id number] Medicare [id number] Medicare [id number] Private Health Insurance [facility] [id number] Unknown [id number] Social History Date Type Detail Facility Unknown if ever smoked [facility] Other Start: 03-22-2020 End: 12-29-2022 Sex Assigned At [facility] Other Start: 02-24-2018 End: 11-16-2022 Tobacco smoking status NHIS Ex-smoker [facility] History of tobacco use Current smoker [facility] History of tobacco use Cigarette Smoker P [facility] Start: 03-22-2020 End: 11-16-2022 Cigarettes smoked current (pack per day) [facility] Start: 11-16-2022 Tobacco use and exposure Smokeless tobacco non-user [facility] Start: 12-29-2022 Alcohol intake Current non-dr pin puller of alcohol (finding) [facility] Childcare Unknown [facility] Start: 11-16-2022 Tobacco Comment Quit in 2002. [facility] Start: 1955 Sex Assigned At Not on file P [facility] Start: 1955 Sex Assigned At Male F [facility] Medical Equipment Procedure Code Equipment Code Equipment Origin al Text Equipment Identifier Dates Start: 02-24-2018 Clinical Notes 12-24-2020 to 02-25-2023 Note Date & Type Note Facility 02-25-2023 Evaluation note Encounter Date Diagnosis Assessment Notes Jan, Right lower quadrant abdominal pain (ICD-10 - R10.31) [facility] Other 12-11-2023 Evaluation note* Encounter Date Diagnosis Assessment Notes Treatment Notes Treatment Clinical Notes Jan, Abdominal mass, right lower quadrant (ICD-10 - R19.03) agrees to US to assess. Discussed differential including hernia Jan, Benign essential HTN (ICD-10 - I10) BP presently normal. Denies symptoms of hypotension, will monitor [facility] Other 12-04-2023 Evaluation note* Encounter Date Diagnosis Assessment Notes Treatment Notes Treatment Clinical Notes Jan, Dietary counseling and surveillance (ICD-10 - Z71.3) Heart healthy diet material was published see above Jan, Type 2 diabetes mellitus with hyperglycemia (ICD-10 - E11.65) Diabetes and choosing the right foods material was published 1. Uncontrolled, a Type 2 diabetes with A1c of 7.2% 2. Blood glucose levels improved. According to [employer] g7 cgm download 01/19/23-02/01/23: Avg glucose 182. >250-13%, >180-31%, 70-180-56%, <70-0%, <54-<1%. CV 29%. GMI 7.7%. Reviewed download with pt, glucose above target from higher carb load meals. Reviewed with pt how to titrate basal/bolus insulin according to fasting am/meeal to meal glucose pattern. Pt verbalizes understanding. Note: Stopped trulicity d/t diarrhea 3. Patient is alert, oriented and receptive to making changes or counseling. Notes: Seen for an assessment of current glucose pattern, changes in treatment plan, with this time spent in counseling and coordination of care related to diabetes, risks, and benefits of treatment, medications, and side effects. TOPICS REVIEWED: 1. Time was spent reviewing: a. Basic concepts of diabetes, progressive beta cell , concepts of basal/bolus/correc tive insulin requirements. Basal: The goal is fasting blood glucose of 90-130mg. IF fasting blood glucose starts to run under 100mg 3x's/ week, decrease dose by 10%. Bolus: The goal is to hold the blood glucose level steady meal to meal. If pt. is going to have increased physical activity after a meal, decrease the schedule meal dose prior to the activity by 30-50%. If pt. skips a meal do not take this dose. Correction: The goal is to correct an elevated glucose back into the 100-150mg range b. Nutrition: Concepts of healthy diet, encouraged to decrease saturated fat in diet and increase non-starchy vegetables and fruits in diet. BMI: Pt. needs to select one small change to decrease caloric intake or increase physical activity to help decrease weight. c. Correct treatment of hypoglycemia, carry a glucose source at all times on your person, in vehicles, and at bedside. Can use glucose tablets/4, four ounces of pop or juice equal to 15 G of carbohydrate. Blood glucose should be 100 mg/dl or higher when driving. d. ADA glucose goals for age and medical complexity reviewed e. Patient questions addressed 2. Activity/exercise: Encouraged to start any form of physical activity. Start low level and increase slowly to a minimal goal of 150 minutes/week. Limit activity to what is allowed by other issues such as cardiac, pulmonary or orthopedic restrictions. 3. Standards of care: Reminded to have an annual dilated eye exam, A1C every 3 months, urine testing for microalbumin once/year, check feet daily and report any cuts or sores that do not appear to be healing. 4. Meter: Plan to check blood glucose: Please check blood glucose levels 4 times/day. Back to back meals reveal effectiveness of bolus dosing. The blood glucose data is used to determine insulin doses,and confirm symptoms of hypoglcyemia and hyperglcyemia. 5. [facility]. Contact office if any issues or concerns with patterns of hypoglycemia, hyperglycemia, or diabetes medication issues. 6. Prescriptions: Will call when needed. 7. Prescriptions will not be filled unless you are compliant with follow up appointments or have a follow up appointment scheduled as ordered by your provider. Refills should be requested at the time of your visit. 8. DE instructed on application/and set up with display specialist today. Jan, Hyperlipidemia (ICD-10 - E78.5) Managing your cholesterol material was published 06/2022 ldl 60 at target on statin Jan, HTN (hypertension) (ICD-10 - I10) Managing high blood pressure material was published on [facility]aryse Jan, snf current use of insulin (ICD-10 - Z79.4) Jan, BMI 34.0-34.9,adult (ICD-10 - Z68.34) Setting weight-loss goals material was published Jan, Low blood pressure reading (ICD-10 - R03.1) Denied s&s hypotension i.e. dizzy, lightheaded. Recommend f/u with pcp for further evaluation [facility] Other 09-28-2023 Evaluation note* Encounter Date Diagnosis Assessment Notes Treatment Notes Treatment Clinical Notes Oct, Dietary counseling and surveillance (ICD-10 - Z71.3) Heart healthy diet material was published see above Oct, Type 2 diabetes mellitus with hyperglycemia (ICD-10 - E11.65) Diabetes and choosing the right foods material was published 1. Uncontrolled, a Type 2 diabetes with A1c of 13.1% 10/21/22 2. Blood glucose levels improved. According to [employer]com cgm download 11/13/22-11/26/22: Avg glucose 159. >250-2%, >180-22%, 70-180-76%, <70-0%, <54-<1%. CV 23%. GMI 7.1%. Reviewed download with pt, glucose above target from higher carb load meals. Reviewed with pt how to titrate basal/bolus insulin according to fasting am/meeal to meal glucose pattern. Pt verbalizes understanding. Pt brought dexcom g7 display specialist/sensor with him today asking for instruction on set up/use. Note: Reviewed with pt if cost of glp1 prohibitive will need to consider stopping medication- may consider xultophy as replacement for tresiba/once daily glp1 3. Patient is alert, oriented and receptive to making changes or counseling. Notes: Seen for an assessment of current glucose pattern, changes in treatment plan, with this time spent in counseling and coordination of care related to diabetes, risks, and benefits of treatment, medications, and side effects. TOPICS REVIEWED: 1. Time was spent reviewing: a. Basic concepts of diabetes, progressive beta cell , concepts of basal/bolus/correc tive insulin requirements. Basal: The goal is fasting blood glucose of 90-130mg. IF fasting blood glucose starts to run under 100mg 3x's/ week, decrease dose by 10%. Bolus: The goal is to hold the blood glucose level steady meal to meal. If pt. is going to have increased physical activity after a meal, decrease the schedule meal dose prior to the activity by 30-50%. If pt. skips a meal do not take this dose. Correction: The goal is to correct an elevated glucose back into the 100-150mg range b. Nutrition: Concepts of healthy diet, encouraged to decrease saturated fat in diet and increase non-starchy vegetables and fruits in diet. BMI: Pt. needs to select one small change to decrease caloric intake or increase physical activity to help decrease weight. c. Correct treatment of hypoglycemia, carry a glucose source at all times on your person, in vehicles, and at bedside. Can use glucose tablets/4, four ounces of pop or juice equal to 15 G of carbohydrate. Blood glucose should be 100 mg/dl or higher when driving. d. ADA glucose goals for age and medical complexity reviewed e. Patient questions addressed 2. Activity/exercise: Encouraged to start any form of physical activity. Start low level and increase slowly to a minimal goal of 150 minutes/week. Limit activity to what is allowed by other issues such as cardiac, pulmonary or orthopedic restrictions. 3. Standards of care: Reminded to have an annual dilated eye exam, A1C every 3 months, urine testing for microalbumin once/year, check feet daily and report any cuts or sores that do not appear to be healing. 4. Meter: Plan to check blood glucose: Please check blood glucose levels 4 times/day. Back to back meals reveal effectiveness of bolus dosing. The blood glucose data is used to determine insulin doses,and confirm symptoms of hypoglcyemia and hyperglcyemia. 5. [facility] 2 [facility]. Contact office if any issues or concerns with patterns of hypoglycemia, hyperglycemia, or diabetes medication issues. 6. Prescriptions: Will call when needed. 7. Prescriptions will not be filled unless you are compliant with follow up appointments or have a follow up appointment scheduled as ordered by your provider. Refills should be requested at the time of your visit. 8. DE instructed on application/and set up with display specialist today. Oct, Hyperlipidemia (ICD-10 - E78.5) Managing your cholesterol material was published 06/2022 ldl 60 at target on statin Oct, HTN (hypertension) (ICD-10 - I10) Managing high blood pressure material was published on maryse Oct, snf current use of insulin (ICD-10 - Z79.4) Oct, BMI 34.0-34.9,adult (ICD-10 - Z68.34) Setting weight-loss goals material was published [facility] Other 08-23-2023 Evaluation note* Encounter Date Diagnosis Assessment Notes Treatment Notes Treatment Clinical Notes Sep, Dietary counseling and surveillance (ICD-10 - Z71.3) Heart healthy diet material was published see above Sep, Type 2 diabetes mellitus with hyperglycemia (ICD-10 - E11.65) Diabetes and choosing the right foods material was published 1. Uncontrolled, a Type 2 diabetes with A1c of 13.1% 2. Blood glucose levels above target- pt has not been taking diabetes medications- refer to hpi. 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 He is asking medication refill be sent to [email or web address]. Pt reports he did restart trulicity 3mg once weekly and is not having any s/e of diarrhea at this time; note was stopped by pcp in the past d/t diarrhea. According to dexcom g6 cgm 10/08/22-10/01/22: Avg glucose 388. >250-100%, >180-0%, 70-180-0%, <70-0%, <54-0%. CV 6.9%. Reviewed cgm download with pt, recommend pt increase tresiba to 50 units qhs. Change novolog to 1:5 icr ac tid and corrective scale 1:20 ac, (hs if >200 half dose). Reviewed with pt importance of prebolus 15 minutes ac for improved postprandial glycemia. Reviewed with pt how to titrate basal/bolus insulin according to fasting am/meeal to meal glucose pattern. Pt verbalizes understanding. Note: diarrhea with trulicity 3. Patient is alert, oriented and receptive to making changes or counseling. Notes: Seen for an assessment of current glucose pattern, changes in treatment plan, with this time spent in counseling and coordination of care related to diabetes, risks, and benefits of treatment, medications, and side effects. TOPICS REVIEWED: 1. Time was spent reviewing: a. Basic concepts of diabetes, progressive beta cell , concepts of basal/bolus/correc tive insulin requirements. Basal: The goal is fasting blood glucose of 90-130mg. IF fasting blood glucose starts to run under 100mg 3x's/ week, decrease dose by 10%. Bolus: The goal is to hold the blood glucose level steady meal to meal. If pt. is going to have increased physical activity after a meal, decrease the schedule meal dose prior to the activity by 30-50%. If pt. skips a meal do not take this dose. Correction: The goal is to correct an elevated glucose back into the 100-150mg range b. Nutrition: Concepts of healthy diet, encouraged to decrease saturated fat in diet and increase non-starchy vegetables and fruits in diet. BMI: Pt. needs to select one small change to decrease caloric intake or increase physical activity to help decrease weight. c. Correct treatment of hypoglycemia, carry a glucose source at all times on your person, in vehicles, and at bedside. Can use glucose tablets/4, four ounces of pop or juice equal to 15 G of carbohydrate. Blood glucose should be 100 mg/dl or higher when driving. d. ADA glucose goals for age and medical complexity reviewed e. Patient questions addressed 2. Activity/exercise: Encouraged to start any form of physical activity. Start low level and increase slowly to a minimal goal of 150 minutes/week. Limit activity to what is allowed by other issues such as cardiac, pulmonary or orthopedic restrictions. 3. Standards of care: Reminded to have an annual dilated eye exam, A1C every 3 months, urine testing for microalbumin once/year, check feet daily and report any cuts or sores that do not appear to be healing. 4. Meter: Plan to check blood glucose: Please check blood glucose levels 4 times/day. Back to back meals reveal effectiveness of bolus dosing. The blood glucose data is used to determine insulin doses,and confirm symptoms of hypoglcyemia and hyperglcyemia. 5. [facility] 1 [facility]. Contact office if any issues or concerns with patterns of hypoglycemia, hyperglycemia, or diabetes medication issues. 6. Prescriptions: [facility]-Tresiba, Trulicity, Novolog, pen needles sent 10/21/22 7. Prescriptions will not be filled unless you are compliant with follow up appointments or have a follow up appointment scheduled as ordered by your provider. Refills should be requested at the time of your visit. Sep, Hyperlipidemia (ICD-10 - E78.5) Managing your cholesterol material was published 06/2022 ldl 60 at target on statin Sep, HTN (hypertension) (ICD-10 - I10) Managing high blood pressure material was published on maryse Sep, snf current use of insulin (ICD-10 - Z79.4) Sep, BMI 34.0-34.9,adult (ICD-10 - Z68.34) Setting weight-loss goals material was published [facility] Other 08-15-2023 Evaluation note* Encounter Date Diagnosis Assessment Notes Treatment Notes Treatment Clinical Notes Sep, Hypothyroidism, unspecified (ICD-10 - E03.9) C/w 175 mcg daily. RTC in 4 months Due for labs - check today. Sep, Ulnar neuropathy of right upper extremity (ICD-10 - G56.21) PT order printed and given to patient. Denies injury. WIll call PT for appt. Sep, Irregular heart beat (ICD-10 - I49.9) EKG done today - Cardio called over that it was a fib on the machine. Pt is established w [facility] - will notify their office. Pt given samples of Eliquis and will hopefully see their providers soon. Last creatinine was 1.5. 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 Will first start with completely stopping the Trulicity and monitoring symptoms. Will call on 05/01 as he just took med on 04/20. Apr, Diarrhea, unspecified (ICD-10 - R19.7) [facility] Other 05-12-2022 Evaluation note* Encounter Date Diagnosis Assessment Notes Treatment Notes Treatment Clinical Notes June, Dietary counseling and surveillance (ICD-10 - Z71.3) Heart healthy diet material was published, Healthy eating material was published see above June, Type 2 diabetes mellitus with hyperglycemia (ICD-10 - E11.65) Managing type 2 diabetes material was published, Managing type 2 diabetes material was published 1. Uncontrolled, a Type 2 diabetes with A1c of 7.5% 2. Blood glucose levels according to [employer] g6 cgm download 06/27/2021- 2: Avg glucose 171. >250-3.6%, >180-33.7%, 70-180-66.1%, <70-0.2%, <54-0.2%. CV 20.4%. SD 35. Reviewed download with pt, noted readings fasting am above target. Recommend he increase tresiba to 32 units qhs. He reports he has 5 boxes of trulicity 3mg dose. If pt qualifies for luis pap will siwitch to ozempic. He was given pap for luis/BI today. 3. Patient is alert, oriented and receptive to making changes or counseling. Notes: Seen for an assessment of current glucose pattern, changes in treatment plan, with this time spent in counseling and coordination of care related to diabetes, risks, and benefits of treatment, medications, and side effects. TOPICS REVIEWED: 1. Time was spent reviewing: a. Basic concepts of diabetes, progressive beta cell , concepts of basal/bolus/correc tive insulin requirements. Basal: The goal is fasting blood glucose of 90-130mg. IF fasting blood glucose starts to run under 100mg 3x's/ week, decrease dose by 10%. Bolus: The goal is to hold the blood glucose level steady meal to meal. If pt. is going to have increased physical activity after a meal, decrease the schedule meal dose prior to the activity by 30-50%. If pt. skips a meal do not take this dose. Correction: The goal is to correct an elevated glucose back into the 100-150mg range b. Nutrition: Concepts of healthy diet, encouraged to decrease saturated fat in diet and increase non-starchy vegetables and fruits in diet. BMI: Pt. needs to select one small change to decrease caloric intake or increase physical activity to help decrease weight. c. Correct treatment of hypoglycemia, carry a glucose source at all times on your person, in vehicles, and at bedside. Can use glucose tablets/4, four ounces of pop or juice equal to 15 G of carbohydrate. Blood glucose should be 100 mg/dl or higher when driving. d. ADA glucose goals for age and medical complexity reviewed e. Patient questions addressed 2. Activity/exercise: Encouraged to start any form of physical activity. Start low level and increase slowly to a minimal goal of 150 minutes/week. Limit activity to what is allowed by other issues such as cardiac, pulmonary or orthopedic restrictions. 3. Standards of care: Reminded to have an annual dilated eye exam, A1C every 3 months, urine testing for microalbumin once/year, check feet daily and report any cuts or sores that do not appear to be healing. 4. Meter: Plan to check blood glucose: Please check blood glucose levels 4 times/day. Back to back meals reveal effectiveness of bolus dosing. The blood glucose data is used to determine insulin doses,and confirm symptoms of hypoglcyemia and hyperglcyemia. 5. [facility] Contact office if any issues or concerns with patterns of hypoglycemia, hyperglycemia, or diabetes medication issues. 6. Prescriptions: See above. 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 He is currently using a dexcom display specialist and carries it in his back pocket. I advised him to not carry it in his back pocket because it could damage the device. He was shown a belt clip on Gold Lasso that he can place on the back of the device and wear it on his belt. [facility] Other 02-01-2022 Evaluation note* Encounter Date Diagnosis Assessment Notes Treatment Notes Treatment Clinical Notes Apr, Dietary counseling and surveillance (ICD-10 - Z71.3) Heart healthy diet material was published see above Apr, Type 2 diabetes mellitus with hyperglycemia (ICD-10 - E11.65) Managing type 2 diabetes material was published 1. Uncontrolled, a Type 2 diabetes with A1c of 7.5% improved from last visit 9.2% 12/24/20 2. Blood glucose levels improved. According to dexcom g6 cgm download 03/19/2021- : Avg glucose 152. >250-0.9%, >180-17.2%, 70-180-82.8%, <70-0%, <54-0%. CV 21.5%. SD 33. Reviewed download with pt, noted readings after supper in middle of night often above target. Will modify bolus insulin see above. 3. Patient is alert, oriented and receptive to making changes or counseling. Notes: Seen for an assessment of current glucose pattern, changes in treatment plan, with this time spent in counseling and coordination of care related to diabetes, risks, and benefits of treatment, medications, and side effects. TOPICS REVIEWED: 1. Time was spent reviewing: a. Basic concepts of diabetes, progressive beta cell , concepts of basal/bolus/correc tive insulin requirements. Basal: The goal is fasting blood glucose of 90-130mg. IF fasting blood glucose starts to run under 100mg 3x's/ week, decrease dose by 10%. Bolus: The goal is to hold the blood glucose level steady meal to meal. If pt. is going to have increased physical activity after a meal, decrease the schedule meal dose prior to the activity by 30-50%. If pt. skips a meal do not take this dose. Correction: The goal is to correct an elevated glucose back into the 100-150mg range b. Nutrition: Concepts of healthy diet, encouraged to decrease saturated fat in diet and increase non-starchy vegetables and fruits in diet. BMI: Pt. needs to select one small change to decrease caloric intake or increase physical activity to help decrease weight. c. Correct treatment of hypoglycemia, carry a glucose source at all times on your person, in vehicles, and at bedside. Can use glucose tablets/4, four ounces of pop or juice equal to 15 G of carbohydrate. Blood glucose should be 100 mg/dl or higher when driving. d. ADA glucose goals for age and medical complexity reviewed e. Patient questions addressed 2. Activity/exercise: Encouraged to start any form of physical activity. Start low level and increase slowly to a minimal goal of 150 minutes/week. Limit activity to what is allowed by other issues such as cardiac, pulmonary or orthopedic restrictions. 3. Standards of care: Reminded to have an annual dilated eye exam, A1C every 3 months, urine testing for microalbumin once/year, check feet daily and report any cuts or sores that do not appear to be healing. 4. Meter: Plan to check blood glucose: Please check blood glucose levels 4 times/day. Back to back meals reveal effectiveness of bolus dosing. The blood glucose data is used to determine insulin doses,and confirm symptoms of hypoglcyemia and hyperglcyemia. 5. [facility]. Contact office if any issues or concerns with patterns of hypoglycemia, hyperglycemia, or diabetes medication issues. 6. Prescriptions: Pt with concern about cost of medications, reviewed with pt he can apply for rx assist through [facility]- he plans on checking to see if he would qualify. Also reports [facility] to check on for lower cost with order dexcom supplies- will contact lonnie fan for future refills on dexcom supplies. Apr, Hyperlipidemia (ICD-10 - E78.5) Managing your cholesterol material was published 05/2020 ldl 53 at target on statin Apr, HTN (hypertension) (ICD-10 - I10) Managing high blood pressure material was published on maryse Apr, snf current use of insulin (ICD-10 - Z79.4) Apr, BMI 33.0-33.9,adult (ICD-10 - Z68.33) 5 pound weight loss from last visit, continue with weight loss efforts [facility] Other 11-09-2021 Evaluation note* Encounter Date Diagnosis Assessment Notes Treatment Notes Treatment Clinical Notes Dec, Type 2 diabetes mellitus with hyperglycemia (ICD-10 - E11.65) Pt here for appointment today for personal Dexcom training, discussed and instructed on use and application. Patient cleansed posterior side of right upper arm with alcohol then Skin Tac, applied patient's own sensor and previous Dexcom sample transmitter, to be able to use for the full 90 days. GrifGrip adhesive also applied for extra security. Set up franklin, reviewed with patient how to use franklin, explained how to enter/delete carbs/insulin/ notes into Dexcom franklin on personal phone. Reviewed with patient alarm and alerts and how to change sensors. Need for confirmatory glucose fingerstick if not feeling well or if display specialist prompts to calibrate. 30 minutes was spent on education by Aldair GONZALEZ, RN [facility] Other 11-08-2021 Evaluation note* Encounter Date Diagnosis Assessment Notes Treatment Notes Treatment Clinical Notes Dec, Type 2 diabetes mellitus with hyperglycemia (ICD-10 - E11.65) Reviewed dexcom g6 download 12/21/2020-2020: Avg glucose 170. >250-3%, >180-33%, 70-180-63%, <70-1%, <54-0%. Will modify corrective scale. 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 Patient's Dexcom sample report was downloaded with ranges between lowest 61-337 highest for the past 10 days. Average reading 170 mg/dl. Time in ranges very high 3%, high 33%, target range 63%, low <1%, and very low 0%. Days with CGM data 71%. Patient has been checking his blood sugars ac, hs with a glucose goal of 90-130 ac 120-180 hs. Patient states his blood sugars have been elevated in the mornings ranging from 150s to 160s. Discussed patients evening snacks, which have been an apple with popcorn or pretzels. Reports he has been covering his blood glucose with insulin for evening snacks. Patient does not know how to count carbs, discussed with patient. Patient uses ICR 1:10 based on meal sizes of small, 3 units; medium, 4 units; large meal 6 units. Patient has been unable to use corrective scale 1:40 before meals and bedtime. Dexcom downloaded report and discussed with Chivo Merchant APRN. Continue using Novolog, replace 1:40 Correction scale to 1:30 before meals and bedtime. Encouraged to continue logging food, insulin qid, glucose, and testing before meals and bedtime. Per Chivo Merchant APRN, recommends decreasing or eliminating patient's evening snacks if possible. His evening snacks are elevating his blood sugars, even with insulin coverage. Also, add to correction scale to use 8 units for XL meal. Patient agrees to plan, states he can cut out evening snacks after he returns from his cruise vacation in 1 week. Patient requesting to continue use of CGM, provider suggests use of Basim 14 day sensors. Basim training discussed, instructed on use and application. Assisted patient to downlioad Basim Fishin' Glueyle franklin on cell phone. Instructed patient to cleanse posterior side of upper arm with alcohol then Skin Tac prior to applying basim sensor. Skin Tac and GrifGrip adhesive samples also provided for extra security. Reviewed with patient testing glucose with Basim ac, hs explained how to enter insulin dosing/notes into Basim franklin on personal cell phone. Reviewed with patient no more than 500mg of Vitamin C per day, which can falsely elevate CGM glucose results. Need for confirmatory glucose fingerstick if not feeling well or if franklin prompts to. Per TKM, send Basim sensor prescription to patient's local pharmacy. Instructed patient to call office if further Basim sensor application assistance is needed. All questions and concerns addressed. Encouraged patient to follow up for next appointment. 60 minutes was spent on education by Ayah GONZALEZ, RN. [facility] Other 10-26-2021 Evaluation note* Encounter Date Diagnosis Assessment Notes Treatment Notes Treatment Clinical Notes Nov, Dietary counseling and surveillance (ICD-10 - Z71.3) Heart healthy diet material was published see above Nov, Type 2 diabetes mellitus with hyperglycemia (ICD-10 - E11.65) Managing type 2 diabetes material was published 1. Uncontrolled, a Type 2 diabetes with A1c of 9.2% 2. Blood glucose levels above target last visit 09/16/20 a1c 7/6%. Will start bolus/corrective insulin. Reviewed with pt dosing 3-4-6 units ac according to meal size (1:10 carb ratio) ac tid and 1:40 corrective scale ac tid. Will stop glimeperide. Pt agreeable to wearing sample dexcom g6 cgm. He was given log book instructed to log glucose ac, hs; meals; insulin dosing and bring to apt in 10 days for review along with download of cgm. He verbalizes understanding. Pt administered novolog 1 unit following corrective scale for glucose of 185 today. 3. Patient is alert, oriented and receptive to making changes or counseling. Notes: Seen for 50 minutes for an assessment of current glucose pattern, changes in treatment plan, with this time spent in counseling and coordination of care related to diabetes, risks, and benefits of treatment, medications, and side effects. TOPICS REVIEWED: 1. Time was spent reviewing: a. Basic concepts of diabetes, progressive beta cell , concepts of basal/bolus/correc tive insulin requirements. Basal: The goal is fasting blood glucose of 90-130mg. IF fasting blood glucose starts to run under 100mg 3x's/ week, decrease dose by 10%. Bolus: The goal is to hold the blood glucose level steady meal to meal. If pt. is going to have increased physical activity after a meal, decrease the schedule meal dose prior to the activity by 30-50%. If pt. skips a meal do not take this dose. Correction: The goal is to correct an elevated glucose back into the 100-150mg range b. Nutrition: Concepts of healthy diet, encouraged to decrease saturated fat in diet and increase non-starchy vegetables and fruits in diet. BMI: Pt. needs to select one small change to decrease caloric intake or increase physical activity to help decrease weight. c. Correct treatment of hypoglycemia, carry a glucose source at all times on your person, in vehicles, and at bedside. Can use glucose tablets/4, four ounces of pop or juice equal to 15 G of carbohydrate. Blood glucose should be 100 mg/dl or higher when driving. d. ADA glucose goals for age and medical complexity reviewed e. Patient questions addressed 2. Activity/exercise: Encouraged to start any form of physical activity. Start low level and increase slowly to a minimal goal of 150 minutes/week. Limit activity to what is allowed by other issues such as cardiac, pulmonary or orthopedic restrictions. 3. Standards of care: Reminded to have an annual dilated eye exam, A1C every 3 months, urine testing for microalbumin once/year, check feet daily and report any cuts or sores that do not appear to be healing. 4. Meter: Plan to check blood glucose: Please check blood glucose levels 4 times/day. Back to back meals reveal effectiveness of bolus dosing. The blood glucose data is used to determine insulin doses,and confirm symptoms of hypoglcyemia and hyperglcyemia. 5. [facility]. Contact office if any issues or concerns with patterns of hypoglycemia, hyperglycemia, or diabetes medication issues. 6. Prescriptions: Jardiance, tresiba, trulicity, novolog, pen needles, lancets, test strips sent to [facility]. Sample dexcom g6 cgm/transmitter and novolog u100 pen with pen needles given today. 7. Return in 10 days for dexcom g6 download, review. Nov, Hyperlipidemia (ICD-10 - E78.5) Managing your cholesterol material was published 05/2020 ldl 53 at target on statin Nov, HTN (hypertension) (ICD-10 - I10) Managing high blood pressure material was published on maryse Nov, snf current use of insulin (ICD-10 - Z79.4) Nov, BMI 34.0-34.9,adult (ICD-10 - Z68.34) Nov, Other Pt here for appointment today, pt agreeable to wear Decom sample. Dexcom training discussed and instructed on use and application on personal phone. Patient cleansed posterior side of left upper arm with alcohol then Skin Tac, applied first Dexcom sensor. GrifGrip adhesive also applied for extra security. Set up Dexcom and Clarity franklin on phone, reviewed with patient how to use franklin, explained how to enter/delete carbs/insulin/illn ess/exercise notes into Dexcom franklin. Reviewed with patient alarm and alerts and how to change sensors. Need for confirmatory glucose fingerstick if not feeling well or if display specialist prompts to calibrate. Instructed to return in 10 days for follow up. 30 minutes was spent on education by lAdair GONZALEZ, RN. [employer] Other Evaluation noteNo InformationNort [employer] Other Evaluation noteNo assessment information available [facility] Work Phone: History general Narrative - Reported* Type Description Date Medical History heart disease Medical History diabetes mellitus Medical History hyperlipidemia Medical History CRF stage 3 Medical History thyroid disease Surgical History heart stent Surgical History gall bladder Surgical History appendectomy Surgical History Neck Surgery Surgical History colonoscopy 09/2019 Hospitalization History See above Hospitalization History Irregular heartbeat 12/30 8 [facility] Other InstructionsNot on filedocumented in this encounter [employer] Summary Purpose Family History No Family History Records Found Relationship Condition Age at Onset Recorded Date/T sekou daughter Unknown father Family history of colon cancer Unknown Malignant neoplasm Unknown Diabetes mellitus Unknown Unknown Advance Directives No Advanced Directives Records FoundLatest Code Status on File Code Status Date Activated Date Inactivated Comments Full Code 01/11/2018 2:47 AM 01/11/2018 6:43 PM Advance Directive Response Recorded Date/ Time Advance Directives No August 10 2:26pm Reason for Referral Reason *FU 03/30 last OV and scan. Diagnosis 1 Right lower quadrant abdominal pain (R10.31) Referral Organization [facility] Janett gould Referring Provider First Name Cheryl Referring Provider Last Name Elsie Referring Provider Specialty Family [facility] Referred Organization [facility] Referred Provider Teddy Law Referred Address [address], [place],[address] Referred Provider Specialty Surgery Referral Priority Routine General Notes Emmy Mendez 04:46:33 PM >received today, attachments made, notes locked, referral faxed Clinical Notes [id number] f: [id number] Chief Complaint and Reason for Visit Chief Complaint 3 Month Follow Up e11.29 4 Month Follow Up Additional Source Comments REASON FOR VISIT (unrecogniz ed section and content) Reason Onset Date Comments Med Refill 03/26/2023 (unrecognized sect ion and content) No Status Records FoundNo Status Records FoundNo Status Records Found INFORMATION SOURCE (unrecogn ized section and content) DATE CREATED AUTHOR 07/14/2022 [facility] DATE CREATED AUTHOR AUTHOR'S ORGANIZ ATION 03/28/2023 [facility] DATE CREATED AUTHOR AUTHOR'S ORGANIZ ATION 04/15/2023 [facility] Care Teams (unrecognized sec tion and content) Water Proofer Relationship Specialty Start Date End Date Cheryl Zimmerman MD [address] [place] [address] PCP - General 05/21/17 Team Status: Active Member Role Status Dates Cheryl Zimmerman MD Primary Care Provider Active Team Status: Inactive Member Role Status Dates Mian Merchant APRN Attending Provider Active Start: February 01, 2023 End: February 01, 2023 Team Status: Inactive Member Role Status Dates Cheryl Zimmerman MD Primary Care Provider Active Start: February 01, 2023 End: February 01, 2023 Mian Merchant APRN Attending Provider Active Start: February 01, 2023 End: February 01, 2023 Team Status: Inactive Member Role Status Dates Cheryl Zimmerman MD Attending Provider Active St art: February 08, 2023 End: February 08, 2023 Goals (unrecognized section and content) Goals may be documented in a n alternate section FOR RECORDS PERTAINING TO PATIENTS WHO ARE OR HAVE BEEN ENROLLED IN A CHEMICAL DEPENDENCY/SUBSTANCEABUSE PROGRAM, SOME INFORMATION MAY BE OMITTED. This clinical summary was aggregated from multiple sources. Caution should be exercised in using it in the provision of clinical care. This summary normalizes information from multiple sources, and as a consequence, information in this document may materially change the coding, format and clinical context of patient data. In addition, data may be omitted in some cases. CLINICAL DECISIONS SHOULD BE BASED ON THE PRIMARY CLINICAL RECORDS. [facility] provides no warranty or guarantee of the accuracy or completeness of information in this document.
[2023-04-22 09:09] LABS: Estimated GFR (African America 38 (>=60); Estimated GFR (Non-African Ame 31 (>=60)
== END 2023-04-22 07:58 | disposition home or self-care (01) ==
LOC: LAB 08:00
PROVIDERS: PCP Family Medicine; Visit Provider Surgery
DX: R19.03 Right lower quadrant abdominal swelling, mass and lump (principal)
CPT/HCPCS: 36415; 82565

== ENCOUNTER 2023-06-24 07:50 | Outpatient (OUT) | payer MEDICARE, BC, SELFPAY ==
--- OUTSIDE RECORDS SUMMARY | 2023-06-24 07:55 | XMS_ITS | CCD ---
Author Organization [facility] Care Team Providers Care Offset Pressman Name Role Phone Jovany Merchanta Unavailable Cheryl Zimmerman Unavailable ELSIE, DR CHERYL Jaquez Admitting Unavailable ZIMMERMAN, DR CHERYL Jaquez Attending Unavailable ZIMMERMAN, DR CHERYL aJquez Primary Care Unavailable ZIMMERMAN, DR CHERYL Jaquez Consulting Unavailable ZIMMERMAN, DR CHERYL Jaquez Admitting Unavailable ZIMMERMAN, DR CHERYL Jaquez Attending Unavailable ZIMMERMAN, DR CHERYL Jaquez Primary Care Unavailable ZIMMERMAN, DR CHERYL Jaquez Consulting Unavailable MAPUS, TONDRA Admitting Unavailable MAPUS TONDRA Attending Unavailable ZIMMERMAN, DR CHERYL Jaquez Primary Care Unavailable MAPUS, TONDRA Consulting Unavailable Cheryl Zimmerman MD Primary Care Provider MD Cheryl Zimmerman Primary Care Provider WILFREDO Merchant Attending Provider [phone] Jerrell Merchant Attending Unavailable Jerrell Merchant K Admitting Unavailable Cheryl Zimmerman Primary Care Unavailable CHERYL ZIMMERMAN Referring Unavailable CHERYL ZIMMERMAN Primary Care Unavailable ÁNGEL KEITA Attending Unavailable CHERYL ZIMMERMAN Referring Unavailable CHERYL ZIMMERMAN Primary Care Unavailable ÁNGEL KEITA Attending Unavailable ÁNGEL KEITA Referring Unavailable CHERYL ZIMMERMAN Primary Care Unavailable Allergies Allergy Classification Reported Allergen(s) Allergy Type Date of Onset Reaction(s) Facility (20 sources) Dye SHELTER Blue 1 Drug allergy Unknown [employer] Other (3 sources) atorvastatin; Translations: [ATORVASTATIN] Drug Allergy 6 [facility] (1 source) Iodine (And Iodine Containting Drugs) Drug allergy (disorder) 3 [facility] (18 sources) dulaglutide; Translations: [DULAGLUTIDE] Drug Allergy 3 Diarrhea [facility] (6 sources) atorvastatin Drug Allergy 6 [facility] (8 sources) Iodinated Contrast Media; Translations: [IODINATED CONTRAST MEDIA] Propensity to adverse reactions to drug 6 [facility] (9 sources) blue dye; Translations: [blue dye] Allergy to substance 3 [facility] (1 source) dulaglutide Drug Allergy 3 [facility] (2 sources) Contrast media Allergy to substance 4 [facility] Medications Current Medications Medication Drug Class(es) Dates Sig (Normalized) Sig (Original) aspirin 81 mg delayed release oral tablet (20 sources) Platelet Aggregation Inhibitor, Nonsteroidal Anti-inflammatory Drug Start: 06-09-2023 End: 06-22-2023 take 81 mg by mouth once daily Aspirin Active 81 MG PO Daily June 22, 2023 9:34am take 1 tablet by mouth in the mo rning aspirin 81 mg Take 1 tablet (81 mg total) by mouth in the morning. 0 Active take 1 tablet by mouth once benny y Aspir-Low 81 MG 1 tablet Orally Once a day Active blood-glucose meter,continuous (Dexcom G7 Instructor Looping) (1 source) Start: 06-22-2023 blood-glucose meter,continuous (Dexcom G7 Instructor Looping) Active .ROUTE June 22, 2023 12:00am blood-glucose sensor (Dexcom G7 Sensor) (1 source) Start: 06-22-2023 blood-glucose sensor (Dexcom G7 Sensor) Active .ROUTE June 22, 2023 12:00am bumetanide 2 mg oral tablet (17 sources) Loop Diuretic Start: 09-03-2022 End: 03-20-2024 take 1 tablet by mouth once daily Bumetanide Active 2 MG PO Daily June 09, 2023 12:00am FreeTextSi tablet once a day; Note: Source Status: Taking; Provider: Elsie Luna ( ) carvedilol 6.25 mg oral tablet (20 sources) alpha-Adrenerg ic Jewels, beta-Adrenergi c Jewels Start: 06-09-2023 End: 06-22-2023 take 6.25 mg by mouth twice daily Carvedilol Active 6.25 MG PO Twice daily June 22, 2023 9:35am Start: 04-01-2021 take 1 tablet by brian th twice daily carvediloL (COREG) 12.5 mg tablet TAKE 1 TABLET BY MOUTH TWICE A DAY 180 tablet 0 04/01/2021 Active take 1 tablet by brian th every twelve hours Carvedilol 6.25 MG 1 tablet with food Orally Twice a day for 90 days Active cholecalciferol 0.05 mg oral tablet (11 sources) Vitamin D Start: 06-09-2023 take 50 ug by mouth once daily Cholecalciferol (Vitamin D3) Active 50 MCG PO Daily June 09, 2023 12:00am take 1 capsule by mo ut in the morning cholecalciferol, vitamin D3, 2,000 units capsule Take 1 capsule (2,000 Units total) by mouth in the morning. 0 Active take 1 capsule by mo ut every twenty-four hours Vitamin D 50 MCG (1999 UT) 1 capsule Ora lly Once a day Active cinnamon bark 500 mg oral capsule (6 sources) take 2 capsules by mouth in the morning cinnamon bark 500 mg capsule Take 2 capsules (1,000 mg total) by mouth in the morning. 0 Active Dexcom G6 Sensor - (20 sources) Start: 01-07-20 21 Dexcom G6 Sensor - as directed subcutaneously change every 10 days for 90 day(s) E11.29 Dec, Active DEXCOM G6 SENSOR device (6 sources) Start: 03-25-19 22 DEXCOM G6 SENSOR device Dexcom G6 Transmitter - (20 sources) Start: 01-07-20 21 Dexcom G6 Transmitter - as directed SQ change every 90 days for 90 day(s) Dec, Active 0.5 ML dulaglutide 6 MG/ML Auto-Injector [Trulicity] (20 sources) GLP-1 Receptor Agonist Start: 10-22-19 23 inject 3 mg by subcutaneous injection every week Trulicity 3 MG/0.5ML 3mg Subcutaneous once weekly for 84 days Sep, Active Start: 08-22-2019 End: 04-21-2023 TRULICITY 1.5 mg/0.5 mL pen injector INJECT ONE DOSE WEEKLY 0 08/22/2019 04/21/2023 Discontinued (Discontinued by another clinician) inject 3 mg by subcu taneous injection [...] (20 sources) Sodium-Glucose Cotransporter 2 Inhibitor Start: 06-09-2023 End: 06-22-2023 take 10 mg by mouth once daily Empagliflozin Active 10 MG PO Daily June 22, 2023 9:35am Start: 12-13-2018 [facility] JARDIANCE 10 mg tablet tablet Take 1 tablet (10 mg total) by mouth in the morning. 3 12/13/2018 Active fenofibric acid 135 mg delayed release oral capsule (20 sources) Peroxisome Proliferator Receptor alpha Agonist Start: 06-09-2023 take 1 capsule by mouth once daily Fenofibric Acid (Choline) Active 135 MG PO Daily June 09, 2023 12:00am FreeTextSi capsule Orally Once a day; Note: Source Status: Refill; Refills: 3; Qty: 90 Capsule; Provider: Elsie Jaquez Start: 03-31-2023 take 1 capsule by [facility] in the morning choline fenofibrate (TRILIPIX) 135 mg capsule Take 1 capsule (135 mg total) by mouth in the morning. 0 03/31/2023 Active take 1 capsule by [facility] every twenty-four hours Fenofibric Acid 135 MG 1 capsule Orally Once a day for 90 days Active Fish Oils (20 sources) take 1 capsule by mouth once daily Fish Oil 1000 MG 1 capsule Orally Once a day Active Insulin Aspart U-100 (Novolog Flexpen U-100 Insulin) 100 unit/mL (3 mL) insulin pen (3 sources) Start: 06-22-2023 Insulin Aspart U-100 (Novolog Flexpen U-100 Insulin) 100 unit/mL (3 mL) insulin pen Active 0 SUBCUT .COMPLEX June 22, 2023 9:35am subcutaneously; ICR 1:5 ac tid. Corrective scale 1:20 ac tid, hs if >200 half dose. expect up to 50 units/day Start: 06-09-2023 End: 06-22-2023 Insulin Aspart U-100 (Novolo g Flexpen U-100 Insulin) 100 unit/mL (3 mL) insulin pen Discontinued SUBCUT June 09, 2023 12:00am June 22, 2023 9:39am FreeTextSig: expect up to 50 units/day Subcutaneous as directed; Note: Source Status: TakingICR 1:5 ac tid. Corrective scale 1:20 ac tid, hs if >200 half dose.; Refills: 3; Qty: 50 Milliliter; Provider: Mayur Avila Start: 06-09-2023 Insulin Aspart U-100 (Novolog Flexpen U-100 Insulin) 100 unit/mL (3 mL) insulin pen Active SUBCUT June 09, 2023 12:00am FreeTextSig: expect up to 50 units/day Subcutaneous as directed; Note: Source Status: TakingICR 1:5 ac tid. Corrective scale 1:20 ac tid, hs if >200 half dose.; Refills: 3; Qty: 50 Milliliter; Provider: Mayur Avila 3 ml insulin aspart, human 100 unt/ml pen injector (20 sources) Insulin Analog Start: 12-24-2020 NovoLOG FlexPe n 100 UNIT/ML expect up to 30 units/day [...] scale 1:40 ac tid. Active insulin degludec (9 sources) Insulin Analog Start: 06-22-2023 inject 50 [IU] by subcutaneous injection once daily at bedtime Insulin Degludec Active 50 UNIT SUBCUT Daily at bedtime June 22, 2023 9:36am Start: 06-09-2023 End: 06-22-2023 inject 44 [IU] by subcutaneous injection once daily at bedtime Insulin Degludec Discontinued UNIT SUBCUT June 09, 2023 12:00am June 22, 2023 9:39am FreeTextSi units SQ qhs; Note: Source Status: Taking; Refills: 3; Provider: Mayur Avila Start: 06-09-2023 inject 44 [IU] by ariza bcutaneous injection once daily at bedtime Insulin Degludec Active UNIT SUBCUT June 09, 2023 12:00am FreeTextSi units SQ qhs; Note: Source Status: Taking; Refills: 3; Provider: Mayur Tondra K inject 40 [IU] by ariza bcutaneous injection once daily at breakfast insulin degludec (TRESIBA FLEXTOUCH U-100 SUBQ) Inject 40 Units under the skin daily with breakfast. 0 Active levothyroxine sodium 0.175 mg oral tablet (20 sources) l-Thyroxine Start: 06-22-2023 take 175 ug by mouth once daily Levothyroxine Active 175 MCG PO Daily June 22, 2023 12:00am Start: 06-12-2022 take 1 tablet by brian th once daily in the morning Levothyroxine Sodium [...] tablet (20 sources) Angiotensin Converting Enzyme Inhibitor Start: 06-09-2023 take 1 tablet by mouth once daily Lisinopril Active 10 MG PO Daily June 09, 2023 12:00am FreeTextSi tablet Orally Once a day; Note: Source Status: Refill; Refills: 3; Qty: 90 Tablet; Provider: Elsie Jaquez take 1 tablet by brian th in the morning lisinopril (PRINIVIL,ZESTRIL) 10 mg tabl et Take 1 tablet (10 mg total) by mouth in the morning. 0 Active NON FORMULARY (6 sources) NON FORMULARY Fl ax seed oil 1200 mg daily 0 Active [place] 6-Dth-Qem-Fish Oil (Fish Oil) 1,000 mg (120 mg-180 mg) capsule (2 sources) Start: 4 take 1 capsule by mouth once daily [place] 2-Hme-Glv-Fish Oil (Fish Oil) 1,000 mg (120 mg-180 mg) capsule Active 1 CAP PO Daily June 09, 2023 12:00am omega-3/dha/epa/dpa/f [place] oil (OMEGA-3 2100 ORAL) (6 sources) omega-3/dha/epa/ dpa/ fish oil (OMEGA-3 2100 ORAL) Take by mouth. 0 Active One Touch Ultra Mini Glucometer 1 meter (8 sources) One Touch Ultra Mini Glucometer 1 meter as directed E11,9 as directed Active pen needle, diabetic (BD Melanie 2nd Gen Pen Needle) (1 source) Start: 4 pen needle, diabetic (BD Melanie 2nd Gen Pen Needle) Active .ROUTE June 22, 2023 12:00am predniSONE 10 mg oral tablet (3 sources) Start: 4 predniSONE (DELTASONE) 10 mg tablet Take 1 tablet (10 mg total) by mouth in the morning. Take 1.5 tablets at 13 hours, 7 hours, and [address] scan. 5 tablet 0 04/25/2023 Active simvastatin 20 mg oral tablet (20 sources) HMG-CoA Reductase Inhibitor Start: 4 take 1 tablet by mouth once daily in the evening Simvastatin Active 20 MG PO Daily June 09, 2023 12:00am FreeTextSi tablet in the evening Orally Once a day; Note: Source Status: Refill; Refills: 3; Qty: 90 Tablet; Provider: Elsie Jaquez Start: 05-28-2017 take 1 tablet by brian th once daily simvastatin (ZOCOR) 20 mg tablet Take 1 tablet (20 mg total) by mouth once daily. 90 tablet 0 05/28/2017 Active tamsulosin hydrochloride 0.4 mg oral capsule (20 sources) alpha-Adrenergic Jewels Start: 06-09-2023 take 1 capsule by mouth once daily Tamsulosin Active 0.4 MG PO Daily June 09, 2023 12:00am FreeTextSi capsule Orally Once a day; Note: Source Status: Refill; Refills: 3; Qty: 90 Capsule; Provider: Elsie Jaquez Start: 05-31-2017 take 1 capsule by mo ut every twenty-four hours in the morning tamsulosin (FLOMAX) 0.4 mg capsule,extended release 24hr Take 1 capsule (0.4 mg total) by mouth in the morning. 0 05/31/2017 Active take 1 capsule by mo ut once daily Tamsulosin HCl 0.4 MG 1 capsule Orally [...] 90 days (expect up to 50/day) Active UNABLE TO FIND (10 sources) take 3 tablets by mo uth in the morning UNABLE TO FIND Take 3 tablets by mouth in the morning. Balance of Nature- Fruits. 0 Active take 3 tablets by mouth in the m orning UNABLE TO FIND Take 3 tablets by mouth in the morning. Balance of Nature- Vegetables . 0 Active Vitamin D 50 MCG (1999 UT) (18 sources) take 1 capsule by mo ut once daily Vitamin D 50 MCG (1999 UT) 1 capsule Orally Once a day Active Completed/Discontinued Medications Medication Drug Class(es) Dates Sig (Normalized) Sig (Original) Accu-Chek Guide - (8 sources) Accu-Chek Guide - as directed SQ tid qac/ hs for 90 Not-Taking Accu-Chek Guide w/Device (8 sources) Start: 02-24-2018 Accu-Chek Guide w/Device as directed SQ Daily for 365 days Jan, Not-Taking apixaban 5 mg oral tablet (10 sources) Factor Xa Inhibitor Start: 06-09-2023 End: 06-10-2023 take 1 tablet by mouth twice daily Apixaban Discontinued 5 MG PO Twice daily June 09, 2023 12:00am June 10, 2023 11:38am FreeTextSi tablet Orally Twice a day; Note: Source Status: Takingsamples; Qty: 56 Tablet; Provider: Elsie Jaquez Start: 10-13-2022 take 1 tablet by brian th every twelve hours Eliquis 5 MG 1 tablet Orally Twice a day for 28 days samples Sep, Active Azithromycin (2 sources) Macrolide Antimicrobial Start: 06-10-2023 End: 06-22-2023 Azithromycin Discontinued 0 PO .COMPLEX June 10, 2023 12:00am June 22, 2023 9:34am For 250 mg dose pack: take 500 mg today (day 1), then 250 mg for 4 days (days 2-5) PO Start: 06-10-2023 Azithromycin A ctive 0 PO .COMPLEX June 10, 2023 12:00am For 250 mg dose pack: take 500 mg today (day 1), then 250 mg for 4 days (days 2-5) PO Freestyle Basim 14 day senso r (7 sources) Start: 01-06-2021 Freestyle Libr e 14 day sensor as directed SQ change every 14 days for 30 day(s) Dec, Not-Taking Start: 01-06-2021 Freestyle Libr e 14 day sensor as directed SQ change every 14 days for 30 day(s) Dec, Active FreeStyle Basim Almond - (8 sources) Start: 03-14-2019 FreeStyle Libr e Almond - as directed use with 14 days sensor check glucose with reader ac, hs, prn for 365 days pt has coupon card Mar, Not-Taking FreeStyle Basim Sensor (8 sources) Start: 03-14-2019 FreeStyle Libr e Sensor use with basim reader SQ change q 14 days, check glucose ac, hs and prn for 30 day(s) pt has coupon card Mar, Not-Taking multivitamin capsule (2 sources) End: 04-21-2023 take 3 capsules by mouth in the morning multivitamin capsule Take 3 capsules by mouth in the morning. 0 04/21/2023 Discontinued (Patient Stopped On Own) take 3 capsules by mouth in the morning multivitamin capsule Take 3 capsules by mouth in the morning. 0 Active Problems Active Problems Problem Classification Problem Date Documented Da te Episodic/Chronic Abdominal pain (2 sources) Right lower quadrant pain; Translations: [Abdominal pain] Onset: 04-21-2023 Episodic Administrative/social admission (20 sources) Dietary management surveillance; Translations: [Dietary counseling and surveillance] Onset: 12-24-2020 Resolved: 07-10-2021 Episodic Cardiac dysrhythmias (20 sources) Cardiac arrhythmia; Translations: [Other specified cardiac arrhythmias] Onset: 01-17-2018 Chronic Chronic kidney disease (20 sources) Chronic kidney disease stage 3; Translations: [Chronic kidney disease, stage 3 (moderate)] Onset: 12-26-2013 04-21-2023 Chronic Chronic obstructive pulmonary disease and bronchiectasis (10 sources) Bronchitis; Translations: [Bronchitis, not specified as acute or chronic] 06-10-2023 Episodic Coronary atherosclerosis and other heart disease (15 sources) Atherosclerosis of coronary artery without angina pectoris; Translations: [Atherosclerotic heart disease of [place] coronary artery without angina pectoris] Onset: 02-17-2013 08-08-2020 Chronic Diabetes mellitus with complications (20 sources) Disorder of kidney due to diabetes mellitus; Translations: [Type 2 diabetes mellitus with other diabetic kidney complication] Onset: 12-24-2020 Resolved: 07-10-2021 Chronic Diabetes mellitus without complication (9 sources) Type 2 diabetes mellitus without complication; Translations: [Type 2 diabetes mellitus without complications] Onset: 04-21-2023 04-21-2023 Chronic Disorders of lipid metabolism (20 sources) Hyperlipidemia; Translations: [Hyperlipidemia, unspecified] Onset: 09-29-2006 Resolved: 07-10-2021 Chronic Essential hypertension (20 sources) Hypertensive disorder; Translations: [Essential (primary) hypertension] Onset: 12-24-2020 Resolved: 07-10-2021 Chronic Hypertension with complications and secondary hypertension (6 sources) Benign hypertensive heart AND renal disease; Translations: [...] sources) Long-term current use of insulin; Translations: [penitentiary (current) use of insulin] Episodic Other aftercare (6 sources) intermediate frame tender (current) use of insulin; Translations: [intermediate frame tender current use of insulin Z79.4] Onset: 12-24-2020 [...] source) Diarrhea, unspecified Episodic Other gastrointestinal disorders (3 sources) Right lower quadrant abdominal swelling, mass and lump; Translations: [Right lower quadrant abdominal swelling, mass and lump] Onset: 04-21-2023 Episodic Other gastrointestinal disorders (2 sources) Swollen abdomen; Translations: [Right lower quadrant abdominal swelling, mass and lump] 04-21-2023 Episodic Other liver diseases (2 sources) Fatty (change of) liver, not elsewhere classified; Translations: [Nonalcoholic fatty liver disease] 06-22-2023 Chronic Other lower respiratory disease (1 source) Other [...] Chronic Other nutritional; endocrine; and metabolic disorders (6 sources) Body mass index 30+ - obesity; Translations: [Obesity, unspecified] Onset: 05-23-2021 05-23-2021 Chronic Other nutritional; endocrine; and metabolic disorders (1 source) Severe obesity; Translations: [Morbid (severe) obesity due to excess calories] 04-21-2023 Chronic Other nutritional; endocrine; and metabolic disorders (1 source) Morbid (severe) obesity due to excess calories; Translations: [Morbid (severe) obesity due to excess calories] Onset: 04-21-2023 Chronic Other nutritional; endocrine; and metabolic disorders (1 source) H/O: diabetes mellitus; Translations: [Personal history of other endocrine, nutritional and metabolic disease] 04-21-2023 Episodic Other nutritional; endocrine; and metabolic disorders (1 source) Personal history of other endocrine, nutritional and metabolic disease; Translations: [Personal history of other endocrine, nutritional and metabolic disease] Onset: 04-21-2023 Episodic Residual codes; unclassified (1 source) Generalized edema; [...] Problem Date Documented Date Episodic/Chronic Cardiac dysrhythmias (6 sources) Palpitations; Translations: [Palpitations] Onset: 11-16-2022 11-16-2022 Episodic Conditions associated with dizziness or vertigo (6 sources) Dizziness; Translations: [Dizziness and giddiness] Onset: 01-11-2018 01-11-2018 Episodic Other non-traumatic joint disorders (8 sources) Shoulder joint pain; Translations: [Pain in unspecified shoulder] Onset: 12-26-2013 Episodic Other screening for suspected conditions (not mental disorders or infectious disease) (12 sources) Electrocardiogram abnormal; Translations: [Abnormal electrocardiogram [ECG] [EKG]] Onset: 03-06-2015 Resolved: 08-08-2020 06-11-2017 Episodic Results Test Name Value Interpretation Reference Range Facility CT ABDOMEN AND PELVIS W CONT on 05-17-2023 CT ABDOMEN AND PELVIS W CONT CT ABDOMEN AND PELVIS W CONT Clinical history: Right lower quadrant abdominal wall asymmetry on standing. Pain on and off. Technique: Spiral CT of the abdomen and pelvis was performed after the intravenous administration of contrast material. Sagittal and coronal reformatted imaging was performed. All CT scans at this facility use dose modulation, iterative reconstruction, and/or weight based dosing when appropriate to reduce radiation dose to as low as reasonably achievable. Comparisons: None Findings: CT ABDOMEN: Calcified granulomata are noted in the lung bases. Dense coronary artery calcifications are present. There is no pneumoperitoneum. Changes of umbilical hernia mesh repair are present. Anterior abdominal wall appears intact. No hernia nor soft tissue mass is identified. Patient status post cholecystectomy. There is mild hepatic steatosis. No suspicious soft tissue mass nor biliary ductal dilation. Punctate intrahepatic and splenic calcifications consistent with prior granulomatous disease. Adrenal glands and pancreas appear unremarkable. No suspicious renal masses. No intrarenal nor ureteral calculi. Renal collecting systems and ureters are not dilated. Dense atherosclerotic aortoiliac and some visceral vascular calcifications are present without aneurysm. There is no retroperitoneal nor mesenteric lymphadenopathy. No dilated bowel loops. CT PELVIS: Sigmoid diverticulosis is present without focal pericolonic soft tissue stranding nor abscess to suggest acute diverticulitis. No pelvic mass, fluid collection nor lymphadenopathy. No acute fracture nor destructive bone lesion. Some osteophytic changes are present at the hip joints. IMPRESSION: 1. No acute finding in the abdomen nor pelvis, specifically the anterior abdominal wall appears intact. 2. Changes of prior umbilical hernia mesh repair. 3. Sigmoid diverticulosis without CT findings of acute diverticulitis. 4. Mild hepatic steatosis. 5. Heavy coronary artery calcifications. Finalized by John Driscoll MD on 05/17/2023 9:08 AM Normal [facility] Creatinine includes GFR, ser umon 04-22-2023 [facility] Estimated glomerular filtrat ion rate (GFR) non- Americanon 04-22-2023 GFR/1.73 sq M.predicted among non-blacks MDRD (S/P/Bld) [Vol rate/Area] 31 mL/min/{1.73_m2} >=60 [facility] - Chemistry and C hemistry - challengeon 04-22-2023 Creatinine [Mass/Vol] 2.12 mg/dL 0.70-1.30 [facility] GFR/1.73 sq M.predicted MDRD (S/P/Bld) [Vol rate/Area] 38 mL/min/{1.73_m2} >=60 [facility] A1C with Estimated Average G [facility] 02-01-2023 Glucose [Mass/Vol] 160 mg/dL Normal [facility] Comment on above: Order Comment: Reaso n for Exam Type 2 diabetes mellitus with hyperglycemia Result Comment: PERF ORMED BY: [place] [address] PATHOLOGIST ASSISTANT PROFESSOR OF COMMUNICATION HARI ANGEL M.D. Performed By: #### A 1C [facility] #### [address] HbA1c (Bld) [Mass fraction] 7.2 % High 4.3-5.6 [facility] Comment on above: Order Comment: Reaso n for Exam Type 2 diabetes mellitus with hyperglycemia Result Comment: Incr eased risk for diabetes: 5.7 - 6.4 diabetes: >6.4 glycemic control for adults with diabetes: <7.0 Performed By: #### A 1C [facility] eA #### [facility] [address] [id number] [facility] HbA1c (Bld) [Mass fraction] 7.200 % High 4.3-5.6 % [employer] Other HbA1c (Bld) [Mass fraction] 160 mg/dL [employer] Other Glucose - FINGER STICKon Glucose [Mass/Vol] 127 mg/dL [employer] Other Glucose mean value [Mass/vol ume] in Blood Estimated from glycated hemoglobinOrdered By: Jerrell Merchant on 02-01-2023 Average glucose Estimated from glycated hemoglobin (Bld) [Mass/Vol] 160 mg/dL [facility] Hemoglobin A1c percentageOrd ered By: Jerrell Merchant on 02-01-2023 HbA1c (Bld) [Mass fraction] 7.2 % 4.3-5.6 [facility] Comment on above: Increased risk for d iabetes: 5.7 - 6.4diabetes: >6.4glycemic control for adults with diabetes: <7.0 Glucose - FINGER STICKon Glucose [Mass/Vol] 96 mg/dL [employer] Other A1C HEMOGLOBINon 10-21-2022 HbA1c (Bld) [Mass fraction] 13.1 % [employer] Other Glucose - FINGER STICKon Glucose [Mass/Vol] 304 mg/dL [employer] Other HbA1c (Bld) [Mass fraction]o n 10-21-2022 A1C HEMOGLOBIN [facility] Other FREE T4on 07-13-2022 Free T4 [Mass/Vol] 1.38 ng/dL Normal 0.76-1.46 [facility] Comment on above: Performed By: #### F T4 #### [facility] [address] [address] [address] Noreen Tao PROF CHEM 8 (BAS METB)on Anion gap [Moles/Vol] 12.8 mmol/L Normal [facility] Comment on above: Performed By: #### B MP, TSH #### [facility] [address] [address] [address] Noreen Tao Calcium [Mass/Vol] 9.3 mg/dL Normal 8.5-10.1 [facility] Comment on above: Performed By: #### B MP, TSH #### [facility] Laboratory [address] [place] [address] Dr. Noreen Tao Chloride [Moles/Vol] 106 mmol/L Normal 98-107 [facility] Comment on above: Performed By: #### B MP, TSH #### [facility] [address] [place] [address] Dr. Noreen Tao CO2 [Moles/Vol] 30.7 mmol/L Normal 21.0-32.0 [facility] Comment on above: Performed By: #### B MP, TSH #### [facility] [address] [place] [address] Dr. Noreen Tao Creatinine [Mass/Vol] 1.45 mg/dL Critically high 0.70-1.30 [facility] Comment on above: Performed By: #### B MP, TSH #### [facility] [address] [place] [address] Dr. Noreen Tao EGFR-AF BANGLADESHI 59 mL/min/1.73m2 Critically low >=60 [facility] Comment on above: Performed By: #### B MP, TSH #### [facility] [address] [place] [address] Dr. Noreen Tao EGFR-NON AF BANGLADESHI 49 mL/min/1.73m2 Critically low >=60 [facility] Comment on above: Performed By: #### B MP, TSH #### [facility] [address] [address] [address] Noreen Tao Glucose [Mass/Vol] 129 mg/dL Critically high 74-106 [facility] Comment on above: Performed By: #### B MP, TSH #### [facility] [address] [address] [address] Noreen Tao Potassium [Moles/Vol] 4.5 mmol/L Normal 3.5-5.1 [facility] Comment on above: Performed By: #### B MP, TSH #### [facility] [address] [address] [address] Noreen Tao Sodium [Moles/Vol] 145 mmol/L Normal 136-145 [facility] Comment on above: Performed By: #### B MP, TSH #### [facility] [address] [address] [address] Noreen Tao Urea nitrogen [Mass/Vol] 20.0 mg/dL Critically high 7.0-18.0 [facility] Comment on above: Performed By: #### B MP, TSH #### [facility] [address] [address] [address] Noreen Tao Urea nitrogen/Creatinine [Mass ratio] 13.8 mg/mg Normal [facility] Comment on above: Performed By: #### B MP, TSH #### [facility] [address] [address] [address] Noreen Tao TSHon 07-13-2022 TSH 2.373 uIU/mL Normal 0.358-3.740 [facility] Comment on above: Performed By: #### B MP, TSH #### [facility] [address] [address] [address] Noreen Tao LIPID PROFILEon 07-09-2022 CHOL-HDL RATIO NORM SEE BELOW Normal [facility] Comment on above: Result Comment: 3.3 - 4.4 LOW RISK 4.4 - 7.1 AVERAGE RISK 7.1 - 11.0 MODERATE RISK >11.0 HIGH RISK Performed By: #### B MP, TSH #### [facility] [address] [address] [address] Noreen Tao Cholesterol [Mass/Vol] 120 mg/dL Normal <=200 [facility] Comment on above: Performed By: #### B MP, TSH #### [facility] [address] [address] [address] Noreen Tao Cholesterol in HDL [Mass/Vol] 35 mg/dL Critically low 40-60 [facility] Comment on above: Performed By: #### B MP, TSH #### [facility] [address] [address] [address] Noreen Tao Cholesterol in LDL [Mass/Vol] 60.0 mg/dL Normal [facility] Comment on above: Performed By: #### B MP, TSH #### [facility] [address] [address] [address] Noreen Tao Cholesterol.total/Cho lesterol in HDL [Mass ratio] 3.4 {ratio} Normal [facility] Comment on above: Performed By: #### B MP, TSH #### [facility] [address] [address] [address] Noreen Tao HDL NORMAL > or = 60 mg/dl - LOW CARDIOVASCULAR RISK <40 mg/dl - HIGH CARDIOVASCULAR RISK Normal [facility] Comment on above: Performed By: #### B MP, TSH #### [facility] [address] [address] [address] Noreen Tao LDL CALC NORMAL SEE BELOW Normal [facility] Comment on above: Result Comment: <100 mg/dl OPTIMAL 100 - 129 mg/dl NEAR OR ABOVE OPTIMAL 130 - 159 mg/dl BORDERLINE HIGH 160 - 189 mg/dl HIGH >190 mg/dl VERY HIGH Performed By: #### B MP, TSH #### [facility] [address] [address] [address] Noreen Tao Triglyceride [Mass/Vol] 125 mg/dL Normal <=150 [facility] Comment on above: Performed By: #### B MP, TSH #### [facility] [address] [address] [address] Noreen Tao VLDL CALC 25.0 mg/dL Normal [facility] Comment on above: Performed By: #### B MP, TSH #### [facility] [address] [address] [address] Noreen Tao MICROALB CREAT RATIO RANDOMo n 07-09-2022 mALB 2.0 mg/dL Normal <=30.0 [facility] Comment on above: Performed By: #### M CRR #### [facility] [address] [place] [address] Dr. Noreen Tao MALB CR RATIO 24.3 mg/g Normal 0.0-29.9 [facility] Comment on above: Performed By: #### M CRR #### [facility] [address] [place] [address] Dr. Noreen Tao MALB CR RATIO RANGE SEE BELOW Normal [facility] Comment on above: Result Comment: NO M ICROALBUMINURIA 0-29 MG/G CLINICAL MICROALBUMINURIA 30-300 MG/G MACROALBUMINURIA >300 MG/G Performed By: #### M CRR #### [facility] [address] [place] [address] Dr. Noreen Tao URINE CREAT 82.16 mg/dL Normal 20.00-300.00 [facility] Comment on above: Performed By: #### M CRR #### [facility] [address] [place] [address] Dr. Noreen Tao PROF 14(COMP METB)on 023 Albumin [Mass/Vol] 3.6 g/dL Normal 3.4-5.0 [facility] Comment on above: Performed By: #### C MP, LIPID #### [facility] [address] [place] [address] Dr. Noreen Tao Albumin/Globulin [Mass ratio] 0.8 {ratio} Normal [facility] Comment on above: Performed By: #### C MP, LIPID #### [facility] [address] [place] [address] Dr. Noreen Tao ALP [Catalytic activity/Vol] 81 U/L Normal 46-116 [facility] Comment on above: Performed By: #### C MP, LIPID #### [facility] [address] [address] [address] Noreen Tao ALT [Catalytic activity/Vol] 60 U/L Normal 16-63 [facility] Comment on above: Performed By: #### C MP, LIPID #### [facility] [address] [address] [address] Noreen Tao Anion gap [Moles/Vol] 10.2 mmol/L Normal [facility] Comment on above: Performed By: #### C MP, LIPID #### [facility] [address] [address] [address] Noreen Tao AST [Catalytic activity/Vol] 27 U/L Normal 15-37 [facility] Comment on above: Performed By: #### C MP, LIPID #### [facility] [address] [place] [address] Dr. Noreen Tao Bilirubin [Mass/Vol] 0.8 mg/dL Normal 0.2-1.0 [facility] Comment on above: Performed By: #### C MP, LIPID #### [facility] [address] [place] [address] Dr. Noreen Tao Calcium [Mass/Vol] 9.2 mg/dL Normal 8.5-10.1 [facility] Comment on above: Performed By: #### C MP, LIPID #### [facility] [address] [place] [address] Dr. Noreen Tao Chloride [Moles/Vol] 106 mmol/L Normal 98-107 [facility] Comment on above: Performed By: #### C MP, LIPID #### [facility] [address] [place] [address] Dr. Noreen Tao CO2 [Moles/Vol] 30.1 mmol/L Normal 21.0-32.0 [facility] Comment on above: Performed By: #### C MP, LIPID #### [facility] [address] [place] [address] Dr. Noreen Tao Creatinine [Mass/Vol] 1.50 mg/dL Critically high 0.70-1.30 [facility] Comment on above: Performed By: #### C MP, LIPID #### [facility] [address] [address] [address] Noreen Tao EGFR-AF BANGLADESHI 57 mL/min/1.73m2 Critically low >=60 [facility] Comment on above: Performed By: #### C MP, LIPID #### [facility] [address] [address] [address] Noreen Tao EGFR-NON AF BANGLADESHI 47 mL/min/1.73m2 Critically low >=60 [facility] Comment on above: Performed By: #### C MP, LIPID #### [facility] [address] [address] [address] Noreen Tao Globulin (S) [Mass/Vol] 4.7 g/dL Normal [facility] Comment on above: Performed By: #### C MP, LIPID #### [facility] [address] [address] [address] Noreen Tao Glucose [Mass/Vol] 148 mg/dL Critically high 74-106 [facility] Comment on above: Performed By: #### C MP, LIPID #### [facility] [address] [address] [address] Noreen Tao Potassium [Moles/Vol] 5.3 mmol/L Critically high 3.5-5.1 [facility] Comment on above: Performed By: #### C MP, LIPID #### [facility] [address] [address] [address] Noreen Tao Protein [Mass/Vol] 8.3 g/dL Critically high 6.4-8.2 [facility] Comment on above: Performed By: #### C MP, LIPID #### [facility] [address] [address] [address] Noreen Tao Sodium [Moles/Vol] 141 mmol/L Normal 136-145 [facility] Comment on above: Performed By: #### C MP, LIPID #### [facility] [address] [address] [address] Noreen Tao Urea nitrogen [Mass/Vol] 31.0 mg/dL Critically high 7.0-18.0 [facility] Comment on above: Performed By: #### C MP, LIPID #### [facility] [address] [place] [address] Dr. Noreen Tao Urea nitrogen/Creatinine [Mass ratio] 20.7 mg/mg Normal [facility] Comment on above: Performed By: #### C MP, LIPID #### [facility] [address] [place] [address] Dr. Noreen Tao BNPon 06-11-2022 Natriuretic peptide B (Bld) [Mass/Vol] 105.0 pg/mL Normal <=900.0 [facility] Comment on above: Performed By: #### B MANAGER OF REGULATORY AFFAIRS, TSH, CMP #### [facility] [address] [place] [address] Dr. Noreen Tao CBC AUTO DIFFon 06-11-2022 BASO # 0.1 103/ul Normal 0.0-0.1 [facility] Comment on above: Performed By: #### C BC #### [facility] [address] [place] [address] Dr. Noreen Tao Basophils/100 WBC (Bld) 1.0 % Normal 0.2-2.0 [facility] Comment on above: Performed By: #### C BC #### [facility] [address] [place] [address] Dr. Noreen Tao EO # 0.2 103/ul Normal 0.0-0.7 [facility] Comment on above: Performed By: #### C BC #### [facility] [address] [place] [address] Dr. Noreen Tao Eosinophils/100 WBC (Bld) 3.1 % Normal 0.9-7.0 [facility] Comment on above: Performed By: #### C BC #### [facility] [address] [place] [address] Dr. Noreen Tao Erythrocyte distribution width (RBC) [Ratio] 14.1 % Normal 11.0-15.0 [facility] Comment on above: Performed By: #### C BC #### [facility] [address] [place] [address] Dr. Noreen Tao Hematocrit (Bld) [Volume fraction] 47.2 % Normal 42.0-54.0 [facility] Comment on above: Performed By: #### C BC #### [facility] [address] [place] [address] Dr. Noreen Tao Hemoglobin (Bld) [Mass/Vol] 15.3 g/dL Normal 14.0-18.0 [facility] Comment on above: Performed By: #### C BC #### [facility] [address] [place] [address] Dr. Noreen Tao IG # 0.01 10e3/ul Normal 0.00-0.03 [facility] Comment on above: Performed By: #### C BC #### [facility] [address] [place] [address] Dr. Noreen Tao IG % 0.2 % Normal 0.0-0.5 [facility] Comment on above: Performed By: #### C BC #### [facility] [address] [place] [address] Dr. Noreen Tao LYMPH # 2.3 103/ul Normal 1.2-3.8 [facility] Comment on above: Performed By: #### C BC #### [facility] [address] [place] [address] Dr. Noreen Tao Lymphocytes/100 WBC (Bld) 40.4 % Normal 20.5-60.0 [facility] Comment on above: Performed By: #### C BC #### [facility] [address] [place] [address] Dr. Noreen Tao MANUAL DIFF REQ NO Normal [facility] Comment on above: Performed By: #### C BC #### [facility] [address] [place] [address] Dr. Noreen Tao MCH (RBC) [Entitic mass] 28.9 pg Normal 25.9-34.0 [facility] Comment on above: Performed By: #### C BC #### [facility] [address] [place] [address] Dr. Noreen Tao MCHC (RBC) [Mass/Vol] 32.4 g/dL Normal 29.9-35.2 [facility] Comment on above: Performed By: #### C BC #### [facility] [address] [address] [address] Noreen Tao MCV (RBC) [Entitic vol] 89.2 fL Normal 80.0-94.0 [facility] Comment on above: Performed By: #### C BC #### [facility] [address] [address] [address] Noreen Tao MONO # 0.4 103/ul Normal 0.3-0.8 [facility] Comment on above: Performed By: #### C BC #### [facility] [address] [address] [address] Noreen Tao Monocytes/100 WBC (Bld) 7.2 % Normal 1.7-12.0 [facility] Comment on above: Performed By: #### C BC #### [facility] [address] [address] [address] Noreen Tao NEUT # 2.8 103/ul Normal 1.4-6.5 [facility] Comment on above: Performed By: #### C BC #### [facility] [address] [address] [address] Noreen Tao Neutrophils/100 WBC (Bld) 48.1 % Normal 43.0-75.0 [facility] Comment on above: Performed By: #### C BC #### [facility] [address] [address] [address] Noreen Tao Platelet mean volume (Bld) [Entitic vol] 9.6 fL Normal 9.5-13.5 [facility] Comment on above: Performed By: #### C BC #### [facility] [address] [address] [address] Noreen Tao PLT 182 103/ul Normal 150-450 [facility] Comment on above: Performed By: #### C BC #### [facility] [address] [address] [address] Noreen Tao RBC 5.29 106/ul Normal 4.70-6.10 [facility] Comment on above: Performed By: #### C BC #### [facility] [address] [place] [address] Dr. Noreen Tao WBC 5.7 103/ul Normal 4.0-11.0 [facility] Comment on above: Performed By: #### C BC #### [facility] [address] [place] [address] Dr. Noreen Tao FREE T4on 06-11-2022 Free T4 [Mass/Vol] 0.14 ng/dL Critically low 0.76-1.46 [facility] Comment on above: Performed By: #### F T4 #### [facility] [address] [place] [address] Dr. oNreen Tao PROF 14(COMP METB)on 023 Albumin [Mass/Vol] 4.0 g/dL Normal 3.4-5.0 [facility] Comment on above: Performed By: #### B MANAGER OF REGULATORY AFFAIRS, TSH, CMP #### [facility] [address] [place] [address] Dr. Noreen Tao Albumin/Globulin [Mass ratio] 1.0 {ratio} Normal [facility] Comment on above: Performed By: #### B MANAGER OF REGULATORY AFFAIRS, TSH, CMP #### [facility] [address] [place] [address] Dr. Noreen Tao ALP [Catalytic activity/Vol] 68 U/L Normal 46-116 [facility] Comment on above: Performed By: #### B MANAGER OF REGULATORY AFFAIRS, TSH, CMP #### [facility] [address] [place] [address] Dr. Noreen Tao ALT [Catalytic activity/Vol] 235 U/L Critically high 16-63 [facility] Comment on above: Performed By: #### B MANAGER OF REGULATORY AFFAIRS, TSH, CMP #### [facility] [address] [place] [address] Dr. Noreen Tao Anion gap [Moles/Vol] 8.2 mmol/L Normal [facility] Comment on above: Performed By: #### B MANAGER OF REGULATORY AFFAIRS, TSH, CMP #### [facility] [address] [place] [address] Dr. Noreen Tao AST [Catalytic activity/Vol] 141 U/L Critically high 15-37 [facility] Comment on above: Performed By: #### B MANAGER OF REGULATORY AFFAIRS, TSH, CMP #### [facility] [address] [place] [address] Dr. Noreen Tao Bilirubin [Mass/Vol] 0.7 mg/dL Normal 0.2-1.0 [facility] Comment on above: Performed By: #### B MANAGER OF REGULATORY AFFAIRS, TSH, CMP #### [facility] [address] [place] [address] Dr. Noreen Toa Calcium [Mass/Vol] 9.6 mg/dL Normal 8.5-10.1 [facility] Comment on above: Performed By: #### B MANAGER OF REGULATORY AFFAIRS, TSH, CMP #### [facility] [address] [place] [address] Dr. Noreen Tao Chloride [Moles/Vol] 103 mmol/L Normal 98-107 [facility] Comment on above: Performed By: #### B MANAGER OF REGULATORY AFFAIRS, TSH, CMP #### [facility] [address] [place] [address] Dr. Noreen Tao CO2 [Moles/Vol] 33.6 mmol/L Critically high 21.0-32.0 [facility] Comment on above: Performed By: #### B MANAGER OF REGULATORY AFFAIRS, TSH, CMP #### [facility] [address] [place] [address] Dr. Noreen Tao Creatinine [Mass/Vol] 1.98 mg/dL Critically high 0.70-1.30 [facility] Comment on above: Performed By: #### B MANAGER OF REGULATORY AFFAIRS, TSH, CMP #### [facility] [address] [place] [address] Dr. Noreen Tao EGFR-AF BANGLADESHI 41 mL/min/1.73m2 Critically low >=60 [facility] Comment on above: Performed By: #### B MANAGER OF REGULATORY AFFAIRS, TSH, CMP #### [facility] [address] [place] [address] Dr. Noreen Tao EGFR-NON AF BANGLADESHI 34 mL/min/1.73m2 Critically low >=60 [facility] Comment on above: Performed By: #### B MANAGER OF REGULATORY AFFAIRS, TSH, CMP #### [facility] [address] [address] [address] Noreen Tao Globulin (S) [Mass/Vol] 4.0 g/dL Normal [facility] Comment on above: Performed By: #### B MANAGER OF REGULATORY AFFAIRS, TSH, CMP #### [facility] [address] [place] [address] Dr. Noreen Tao Glucose [Mass/Vol] 65 mg/dL Critically low 74-106 [facility] Comment on above: Performed By: #### B MANAGER OF REGULATORY AFFAIRS, TSH, CMP #### [facility] [address] [place] [address] Dr. Noreen Tao Potassium [Moles/Vol] 4.8 mmol/L Normal 3.5-5.1 [facility] Comment on above: Performed By: #### B MANAGER OF REGULATORY AFFAIRS, TSH, CMP #### [facility] [address] [place] [address] Dr. Noreen Tao Protein [Mass/Vol] 8.0 g/dL Normal 6.4-8.2 [facility] Comment on above: Performed By: #### B MANAGER OF REGULATORY AFFAIRS, TSH, CMP #### [facility] [address] [place] [address] Dr. Noreen Tao Sodium [Moles/Vol] 140 mmol/L Normal 136-145 [facility] Comment on above: Performed By: #### B MANAGER OF REGULATORY AFFAIRS, TSH, CMP #### [facility] [address] [place] [address] Dr. Noreen Tao Urea nitrogen [Mass/Vol] 20.0 mg/dL Critically high 7.0-18.0 [facility] Comment on above: Performed By: #### B MANAGER OF REGULATORY AFFAIRS, TSH, CMP #### [facility] [address] [place] [address] Dr. Noreen Tao Urea nitrogen/Creatinine [Mass ratio] 10.1 mg/mg Normal [facility] Comment on above: Performed By: #### B MANAGER OF REGULATORY AFFAIRS, TSH, CMP #### [facility] [address] [place] [address] Dr. Noreen Tao TSHon 06-11-2022 TSH 77.632 uIU/mL Critically high 0.358-3.740 [facility] Comment on above: Performed By: #### B MANAGER OF REGULATORY AFFAIRS, TSH, CMP #### [facility] [address] [place] [address] Dr. Noreen Tao A1C HEMOGLOBINon 07-10-2021 HbA1c (Bld) [Mass fraction] 7.5 % [employer] Other Glucose - FINGER STICKon Glucose [Mass/Vol] 159 mg/dL [employer] Other HbA1c (Bld) [Mass fraction]o n 07-10-2021 A1C HEMOGLOBIN [facility] Other A1C HEMOGLOBINon 04-01-2021 HbA1c (Bld) [Mass fraction] 7.5 % [employer] Other Glucose - FINGER STICKon Glucose [Mass/Vol] 101 mg/dL [employer] Other HbA1c (Bld) [Mass fraction]o n 04-01-2021 A1C HEMOGLOBIN [facility] Other A1C HEMOGLOBINon 12-24-2020 HbA1c (Bld) [Mass fraction] 9.2 % [employer] Other Glucose - FINGER STICKon Glucose [Mass/Vol] 185 mg/dL [employer] Other HbA1c (Bld) [Mass fraction]o n 12-24-2020 A1C HEMOGLOBIN [facility] Other Vital Signs Date Time Vital Sign Value Performing Clinician Facility 06-22-2023 09:040 Body height 170.18 cm [facility] 06-22-2023 09:0400 Body mass index (BMI) [Ratio] 34.7 kg/m2 [facility] 06-22-2023 09:0400 Body weight 100.69 kg [facility] 06-22-2023 [id number] Diastolic blood pressure 67 mm[Hg] [facility] 06-22-2023 09:22-0400 Heart rate 63 /min [facility] 06-22-2023 09:22-0400 Respiratory rate 18 /min [facility] 06-22-2023 09:22-0400 SaO2% (BldA) [Mass fraction] 96 % [facility] 06-22-2023 09:22-0400 Systolic blood pressure 117 mm[Hg] [facility] 06-10-2023 11:30-0400 Body height 170.18 cm [facility] 06-10-2023 11:30-0400 Body mass index (BMI) [Ratio] 34.3 kg/m2 [facility] 06-10-2023 11:30-0400 Body temperature 97.4 [degF] [facility] 06-10-2023 11:30-0400 Body weight 99.39 kg [facility] 06-10-2023 11:30-0400 Diastolic blood pressure 78 mm[Hg] [facility] 06-10-2023 11:30-0400 Heart rate 69 /min [facility] 06-10-2023 11:30-0400 SaO2% (BldA) [Mass fraction] 94 % [facility] 06-10-2023 11:30-0400 Systolic blood pressure 124 mm[Hg] [facility] 04-21-2023 12:52-0500 Body height 168.9 cm Ángel Keita DO Work Phone: [facility] 04-21-2023 12:52-0500 Body mass index (BMI) [Ratio] 35.42 kg/m2 Ángel Keita DO Work Phone: [facility] 04-21-2023 12:52-0500 Body weight 101.06 kg Ángel Keita DO Work Phone: [facility] 04-21-2023 12:52-0500 Diastolic blood pressure 54 mm[Hg] Ángel Keita DO Work Phone: [facility] 04-21-2023 12:52-0500 Heart rate 85 /min nÁgel Keita DO Work Phone: [facility] [place] 04-21-2023 12:52-0500 Systolic blood pressure 124 mm[Hg] Ángel Keita Work Phone: [facility] [place] [facility] 02-08-2023 14:00-0500 Body height 170.18 cm Cheryl Zimmerman Other [facility] 02-08-2023 14:00-0500 Body mass index (BMI) [Ratio] 34.3 kg/m2 Cheryl Zimmerman Other [facility] Other 02-08-2023 14:00-0500 Body weight 99.34 kg Cheryl Zimmerman Other [facility] Other 02-08-2023 14:00-0500 Body weight 99.33 kg MD Cheryl Zimmerman Work Phone: [facility] 02-08-2023 14:00-0500 Diastolic blood pressure 83 mm[Hg] Cheryl Zimmerman Other [facility] 02-08-2023 14:00-0500 Systolic blood pressure 134 mm[Hg] Cheryl Zimmerman Other [facility] 02-01-2023 15:00-0500 Body height 170.18 cm Tondra Mapus Other [facility] 02-01-2023 15:00-0500 Body mass index (BMI) [Ratio] 34.72 kg/m2 Tondra Mapus Other [facility] Other 02-01-2023 15:00-0500 Body weight 100.56 kg Tondra Mapus Other [facility] 02-01-2023 15:00-0500 Diastolic blood pressure 45 mm[Hg] Tondra Mapus Other [facility] 02-01-2023 15:00-0500 Respiratory rate 18 /min Tondra Mapus Other [employer] Other 02-01-2023 15:00-0500 SaO2% (BldA) [Mass fraction] 96 % Tondra Mapus Other [employer] Other 02-01-2023 15:00-0500 Systolic blood pressure 86 mm[Hg] Tondra Mapus Other [facility] 11-26-2022 08:15-0400 Body height 170.18 cm Tondra Mapus Other [employer] Other 11-26-2022 08:15-0400 Body mass index (BMI) [Ratio] 34.52 kg/m2 Tondra Mapus Other [employer] Other 11-26-2022 08:15-0400 Body weight 99.97 kg Tondra Mapus Other [employer] Other 11-26-2022 08:15-0400 Diastolic blood pressure 72 mm[Hg] Tondra Mapus Other [employer] Other 11-26-2022 08:15-0400 Respiratory rate 18 /min Tondra Mapus Other [employer] Other 11-26-2022 08:15-0400 SaO2% (BldA) [Mass fraction] 99 % Tondra Mapus Other [employer] Other 11-26-2022 08:15-0400 Systolic blood pressure 110 mm[Hg] Tondra Mapus Other [employer] Other 10-21-2022 08:15-0400 Body height 170.18 cm Tondra Mapus Other [employer] Other 10-21-2022 08:15-0400 Body mass index (BMI) [Ratio] 34.53 kg/m2 Tondra Mapus Other [employer] Other 10-21-2022 08:15-0400 Body weight 100.02 kg Tondra Mapus Other [employer] Other 10-21-2022 08:15-0400 Diastolic blood pressure 69 mm[Hg] Tondra Mapus Other [employer] Other 10-21-2022 08:15-0400 Respiratory rate 18 /min Tondra Mapus Other [employer] Other 10-21-2022 08:15-0400 SaO2% (BldA) [Mass fraction] 96 % Tondra Mapus Other [employer] Other 10-21-2022 08:15-0400 Systolic blood pressure 103 mm[Hg] Tondra Mapus Other [employer] Other 10-13-2022 14:00-0400 Body height 170.18 cm Cheryl Zimmerman Other [employer] Other 10-13-2022 14:00-0400 Body mass index (BMI) [Ratio] 34.61 kg/m2 Cheryl Zimmerman Other [employer] Other 10-13-2022 14:00-0400 Body weight 100.25 kg Cheryl Zimmerman Other [employer] Other 10-13-2022 14:00-0400 Diastolic blood pressure 62 mm[Hg] Cheryl Zimmerman Other [employer] Other 10-13-2022 14:00-0400 Systolic blood pressure 116 mm[Hg] Cheryl Zimmerman Other [employer] Other 04-21-2022 15:00-0500 Body height 170.18 cm Cheryl Zimmerman Other [employer] Other 04-21-2022 15:00-0500 Body mass index (BMI) [Ratio] 36.18 kg/m2 Cheryl Zimmerman Other [employer] Other 04-21-2022 15:00-0500 Body weight 104.78 kg Cheryl Zimmerman Other [employer] Other 04-21-2022 15:00-0500 Diastolic blood pressure 80 mm[Hg] Cheryl Zimmerman Other [employer] Other 04-21-2022 15:00-0500 SaO2% (BldA) [Mass fraction] 99 % Cheryl Zimmerman Other [employer] Other 04-21-2022 15:00-0500 Systolic blood pressure 132 mm[Hg] Cheryl Zimmerman Other [employer] Other 07-10-2021 10:45-0400 Body height 170.18 cm Tondra Mapus Other [employer] Other 07-10-2021 10:45-0400 Body mass index (BMI) [Ratio] 33.98 kg/m2 Tondra Mapus Other [employer] Other 07-10-2021 10:45-0400 Body weight 98.43 kg Tondra Mapus Other [employer] Other 07-10-2021 10:45-0400 Diastolic blood pressure 83 mm[Hg] Tondra Mapus Other [employer] Other 07-10-2021 10:45-0400 Respiratory rate 20 /min Tondra Mapus Other [employer] Other 07-10-2021 10:45-0400 SaO2% (BldA) [Mass fraction] 98 % Tondra Mapus Other [employer] Other 07-10-2021 10:45-0400 Systolic blood pressure 166 mm[Hg] Tondra Mapus Other [employer] Other 04-01-2021 10:15-0500 Body height 170.18 cm Tondra Mapus Other [employer] Other 04-01-2021 10:15-0500 Body mass index (BMI) [Ratio] 33.98 kg/m2 Tondra Mapus Other [employer] Other 04-01-2021 10:15-0500 Body weight 98.43 kg Tondra Mapus Other [employer] Other 04-01-2021 10:15-0500 Diastolic blood pressure 76 mm[Hg] Tondra Mapus Other [employer] Other 04-01-2021 10:15-0500 Respiratory rate 16 /min Tondra Mapus Other [employer] Other 02-01-2022 10:15-0500 SaO2% (BldA) [Mass fraction] 98 % Tondra Mapus Other [employer] Other 04-01-2021 10:15-0500 Systolic blood pressure 144 mm[Hg] Tondra Mapus Other [employer] Other 01-07-2021 09:30-0500 Body height 170.18 cm Tondra Mapus Other [employer] Other 01-07-2021 09:30-0500 Body mass index (BMI) [Ratio] 34.83 kg/m2 Tondra Mapus Other [employer] Other 01-07-2021 09:30-0500 Body weight 100.88 kg Tondra Mapus Other [employer] Other 01-07-2021 09:30-0500 Diastolic blood pressure 64 mm[Hg] Tondra Mapus Other [employer] Other 01-07-2021 09:30-0500 Respiratory rate 18 /min Tondra Mapus Other [employer] Other 01-07-2021 09:30-0500 SaO2% (BldA) [Mass fraction] 98 % Tondra Mapus Other [employer] Other 01-07-2021 09:30-0500 Systolic blood pressure 135 mm[Hg] Tondra Mapus Other [employer] Other 01-06-2021 10:30-0500 Body height 170.18 cm Tondra Mapus Other [employer] Other 01-06-2021 10:30-0500 Body mass index (BMI) [Ratio] 34.83 kg/m2 Tondra Mapus Other [employer] Other 01-06-2021 10:30-0500 Body weight 100.88 kg Tondra Mapus Other [employer] Other 01-06-2021 10:30-0500 Diastolic blood pressure 79 mm[Hg] Tondra Mapus Other [employer] Other 01-06-2021 10:30-0500 Respiratory rate 18 /min Tondra Mapus Other [employer] Other 01-06-2021 10:30-0500 SaO2% (BldA) [Mass fraction] 98 % Tondra Mapus Other [employer] Other 01-06-2021 10:30-0500 Systolic blood pressure 143 mm[Hg] Tondra Mapus Other [employer] Other 12-24-2020 09:15-0400 Body height 170.18 cm Tondra Mapus Other [employer] Other 12-24-2020 09:15-0400 Body mass index (BMI) [Ratio] 34.61 kg/m2 Tondra Mapus Other [employer] Other 12-24-2020 09:15-0400 Body weight 100.25 kg Tondra Mapus Other [employer] Other 12-24-2020 09:15-0400 Diastolic blood pressure 78 mm[Hg] Tondra Mapus Other [employer] Other 12-24-2020 09:15-0400 Respiratory rate 16 /min Tona Davidus Other [employer] Other 12-24-2020 09:15-0400 SaO2% (BldA) [Mass fraction] 97 % Tondra Davidus Other [employer] Other 12-24-2020 09:15-0400 Systolic blood pressure 122 mm[Hg] Tawandadra Mapus Other [employer] Other Encounters Encounter Date Encounter Type Care Provider Facility Start: 06-22-2023 End: 06-22-2023 ambulatory [facility] Work Phone: Start: 06-22-2023 End: 06-22-2023 Patient encounter procedure [facility] Work Phone: Start: 06-10-2023 End: 06-10-2023 ambulatory [facility] Work Phone: Start: 06-10-2023 End: 06-10-2023 Patient encounter procedure [facility] Work Phone: Start: 05-17-2023 Telephone encounter Kamilla Guallpa CMA [facility] Start: 05-17-2023 End: 05-18-2023 ambulatory ÁNGEL KEITA [facility] Start: 05-03-2023 Orders Only Khalida Hernandez RMA [facility] Comment on above: Right lower quadrant abdominal swelling Start: 04-25-2023 Orders Only Ángel perez DO Work Phone: [facility] Start: 04-23-2023 Telephone encounter Ana Koehler CMA [facility] Start: 04-22-2023 Non-patient / Non-visit [facility] Work Phone: Start: 04-21-2023 End: 04-21-2023 ambulatory ÁNGEL Gisele SMITHCelso [facility] Start: 04-21-2023 End: 04-21-2023 Office outpatient new 30 minutes Ángel Keita DO Work Phone: [facility] Comment on above: Right lower quadrant abdominal swelling (Primary Dx); Class 3 severe obesity due to excess calories with serious comorbidity in adult, unspecified BMI ([facility]); History of insulin dependent diabetes mellitus; Type 2 diabetes mellitus without complication, unspecified whether half-way insulin use ([facility]); Stage 3a chronic kidney disease (CKD) ([facility]); Coronary artery disease involving [place] coronary artery of [place] heart with angina pectoris ([facility]) Start: 03-26-2023 Refill Luna Prater RN PHN [facility] Start: 03-25-2023 ambulatory CHERYL ZIMMERMAN [facility] Start: 03-17-2023 End: 03-17-2023 ambulatory Tondra Mapus Other [employer] Other Start: 03-17-2023 Telephone encounter Jerrell Merchant [facility] Start: 02-25-2023 End: 02-25-2023 ambulatory Cheryl Zimmerman Other [employer] Other Start: 02-25-2023 Telephone encounter Cheryl Zimmerman [facility] Start: 02-08-2023 End: 02-08-2023 ambulatory Cheryl Zimmerman Other [employer] Other Start: 02-08-2023 Office outpatient vi sit 15 minutes Cheryl Zimmerman [facility] Start: 02-08-2023 End: 02-08-2023 Patient encounter procedure MD Cheryl Zimmerman Work Phone: [facility] Work Phone: Start: 02-03-2023 End: 02-03-2023 ambulatory Tondra Mapus Other [employer] Other Start: 02-03-2023 Telephone encounter Tondra Mapus [facility] Start: 02-01-2023 End: 02-01-2023 Discharged Recurring MD [facility] Work [facility]: Start: 02-01-2023 (DM) Diabetes Tondra Mapus [facility] Start: 02-01-2023 End: 02-02-2023 ambulatory MD Cheryl Zimmerman Work Phone: [employer] Other Start: 02-01-2023 End: 02-01-2023 Patient encounter procedure MD Cheryl Zimmerman Work Phone: [facility] Work Phone: Start: 11-26-2022 (DM) Diabetes Tondra Mapus [facility] Start: 11-26-2022 End: 11-26-2022 ambulatory Tondra Mapus Other [employer] Other Start: 10-21-2022 (DM) Diabetes Tondra Mapus [facility] Start: 10-21-2022 End: 10-21-2022 ambulatory Tondra Mapus Other [employer] Other Start: 10-13-2022 End: 10-13-2022 ambulatory Cheryl Zimmerman Other [employer] Other Start: 10-13-2022 Office outpatient vi sit 25 minutes Cheryl Zimmerman [facility] Start: 07-13-2022 End: 07-14-[address] CHERYL ZIMMERMAN Facility: Start: 07-09-2022 End: 07-10-2022 ambulatory TONDRA MAPUS [facility] Other Start: 07-09-2022 Telephone encounter Tondra Mapus [facility] Start: 06-12-2022 End: 06-12-2022 ambulatory Cheryl Zimmerman Other [employer] Other Start: 06-12-2022 Telephone encounter Cheryl Elsie [facility] Start: 06-11-2022 End: 06-12-[address] CHERYL ZIMMERMAN Facility: Start: 05-01-2022 End: 05-01-2022 ambulatory Cheryl Zimmerman Other [employer] Other Start: 05-01-2022 Telephone encounter Cheryl Elsie [facility] Start: 04-21-2022 End: 04-21-2022 ambulatory Cheryl Zimmerman Other [employer] Other Start: 04-21-2022 Office outpatient vi sit 15 minutes Cheryl Zimmerman [facility] Start: 09-18-2021 Adult health examination Cheryl Elsie Other [employer] Other Start: 09-18-2021 Problem, abnormal examination Cheryl Elsie Other [employer] Other Start: 07-10-2021 (DM) Diabetes [facility]ond[facility] Map[facility] Start: 07-10-2021 End: 07-10-2021 ambulatory Tondra Mapus Other [employer] Other Start: 04-01-2021 (DM) Diabetes Tondra Mapus [facility] Start: 04-01-2021 End: 04-01-2021 ambulatory Tondra Mapus Other [employer] Other Start: 01-07-2021 End: 01-07-2021 ambulatory Tondra Mapus Other [employer] Other Start: 01-07-2021 Nursing evaluation o f patient and report Tondra Mapus [facility] Start: 01-06-2021 End: 01-06-2021 ambulatory Jerrell Merchant Other [employer] Other Start: 01-06-2021 Nursing evaluation o f patient and report [facility] Start: 01-06-2021 Telephone encounter Jerrell Savage [facility] Start: 12-24-2020 (DM) Diabetes Jerrell Merchant [facility] Procedures Date Procedure Procedure Detail Performing Clinician Start: 04-22-2023 Creatinine blood Elizabeth Keita DO Work Phone: Start: 10-04-2019 Colonoscopy Luna ascencio RN Start: 05-04-2017 Screening for malign ant neoplasm of colon Cheryl Zimemrman Other Plan of Treatment Date Care Activity Detail Author Start: 2024 Screening for malign ant neoplasm of colon Colonoscopy [facility] Start: 05-16-2024 Tobacco Screening Tobacco Screening [facility] Start: 04-21-2024 Adult BMI Screening Adult BMI Screen [facility] Start: 04-21-2024 Tobacco Screening Tobacco Screening [facility] Start: 12-30-2023 Adult BMI Screening Adult BMI Screen ing [facility] Start: 12-30-2023 Tobacco Screening Tobacco Screening [facility] Start: 06-10-2023 Patient referral [facility] Work Phone: Start: 05-17-2023 End: 05-17-2023 Patient encounter procedure 05/17/2023 8:00 AM EDT Appointment [facility] [address] [place] [address] Ángel Keita DO [address] [place] [address] [facility] Start: 04-21-2023 End: 04-20-2024 CT Abdomen and Pelvis W contrast IV CT abdomen and pelvis with contrast Imaging Routine Right lower quadrant abdominal swelling Expected: 04/21/2023, Expires: 04/20/2024 [facility] Comment on above: Expected: 04/21/2023 , Expires: 04/20/2024 Start: 04-14-2023 End: 04-14-2023 Patient encounter procedure 04/14/2023 2:30 PM EST Office Visit [facility] [address] [place] [id number] Elsy Rowe, CODING COMPLIANCE SPECIALIST-CIVIL RIGHTS REPRESENTATIVE [address] [place] [address] [facility] Start: 10-30-2022 COVID-19 Vaccine ( season) COVID-19 Vaccine ( season) [facility] Start: 10-30-2022 Influenza vaccination Influenza Vacc ine [facility] Start: 10-02-2020 Fall Risk Screening Fall Risk Screen ing [facility] Start: 10-02-2005 Administration of varicella zoster vaccine Zoster (Shingles) Vaccine (1 of 2) [facility] Start: 10-02-1974 DTaP,Tdap and Td Vaccines (1 - Tdap) DTaP,Tdap and Td Vaccines (1 - Tdap) [facility] Start: 10-02-1973 Adult BMI Follow Up Plan Adult BMI Follow Up Plan [facility] Start: 10-02-1973 Diabetic foot examination Diabetic Foot Exam [facility] Start: 1967 Depression Screening Depression Scre ening [facility] Start: 1955 Glaucoma screening Diabetic Op hthalmology Exam [facility] Start: 1955 Medicare Annual Well ness Visit Medicare Annual Wellness Visit [facility] Comprehensive metabo lic 2000 panel - Serum or Plasma [facility] End: 04-21-2024 Creatinine includes GFR, serum Creatinine includes GFR, serum Lab Routine Right lower quadrant abdominal swelling 1 Occurrences starting 04/21/2023 until 04/21/2024 [facility] Work Phone: Comment on above: 1 Occurrences starti ng 04/21/2023 until 04/21/2024 Insulin C-peptide measurement [facility] Patient referral [facility] Work Phone: [facility] Immunizations Immunization Date Immunization Notes Care Provider Dayanna winn 06-27-2020 COVID-19 Vaccine Ashley - Documentation Purposes Only Jerrell Merchant Other [facility] 12-05-2019 influenza virus vaccine, split virus (incl. purified surface antigen) Cheryl Zimmerman Other [employer] Other 12-05-2019 influenza virus vaccine, unspecified formulation MD Cheryl Zimmerman Work Phone: [facility] Payers Date Payer Category Payer Medicare A[employer]NA MEDICARE A ETNA MEDICARE PLAN (HMO) [id number] 2022-Present [phone] [address] [place] [address] [id number] 2021 Private Health Insurance [id number] 2021 Unknown [id number] 2020 Blue Cross Blue Shield [id number] 2020 Unknown [id number] 2017 Self-pay [id number] 2006 Blue Cross Blue Shield [id number] 1959 Medicare [id number] 1955 Unknown [id number] 593 1955 Unknown [id number] 593 1955 Unknown [id number] 593 1955 Unknown [id number] 1286 1955 Unknown [id number] 1286 1955 Unknown [id number] 1286 Medicare [id number] Medicare [id number] Private Health Insurance [facility] [id number] Unknown [id number] Social History Date Type Detail Facility Unknown if ever smoked [employer] Other Start: 03-22-2020 End: 12-29-2022 Sex Assigned At [employer] Other Start: 11-16-2022 End: 06-22-2023 Tobacco smoking status IAIS Ex-smoker [facility] End: 03-01-2003 History of tobacco use Current smoker [facility] End: 03-01-2003 History of tobacco use Cigarette Smoker [facility] Start: 03-22-2020 End: 11-16-2022 Cigarettes smoked current (pack per day) - Reported 0.5 [facility] Start: 11-16-2022 End: 04-21-2023 Tobacco use and exposure Smokeless tobacco non-user [facility] Start: 12-29-2022 End: 05-17-2023 Alcohol intake Current non-drinker of alcohol (finding) [facility] Childcare Unknown [facility] Start: 11-16-2022 Tobacco Comment Quit in 2002. [facility] Start: 1955 [facility] Start: 1955 Sex Assigned At Male F [facility] Medical Equipment Procedure Code Equipment Code Equipment Origin al Text Equipment Identifier Dates Start: 02-24-2018 Clinical Notes 12-24-2020 to 05-17-2023 Telephone Encounter - Kamilla Guallpa CMA - 05/17/2023 2:05 PM EDTTelephone Encounter - Kamilla Guallpa, [facility] - 05/17/2023 2:05 PM EDTTelephone Encounter - Kamilla Guallpa, [facility] - 05/17/2023 2:05 PM EDT Note Date & Type Note Facility 05-17-2023 Miscellaneous Notes ----- Message from Ángel Keita DO sent at 05/17/2023 12:29 PM EDT ----- Please call patient and let him know that there was no acute finding in the abdomen or pelvis and the anterior abdominal wall is intact. My opinion that I gave him in the office was correct. There has no hernia. There were changes consistent with his prior umbilical hernia repair with mesh. He also has diverticulosis. He also has a fatty liver which means he should try to lose weight. He also has heavy coronary artery calcifications and he may want to speak to his family physician about that. He is at risk for heart disease and a heart attack. Thanks, Dr. Reyes Informed patient of the CT Abdomen and Pelvis performed 05/17/23. Patient verbally understood with no further questions. Per patient request, I will send results to Dr. Zimmerman. documented in this encounter [facility] 05-17-2023 Telephone encounter Note ----- Message from Ángel Keita DO sent at 05/17/2023 12:29 PM EDT ----- Please call patient and let him know that there was no acute finding in the abdomen or pelvis and the anterior abdominal wall is intact. My opinion that I gave him in the office was correct. There has no hernia. There were changes consistent with his prior umbilical hernia repair with mesh. He also has diverticulosis. He also has a fatty liver which means he should try to lose weight. He also has heavy coronary artery calcifications and he may want to speak to his family physician about that. He is at risk for heart disease and a heart attack. Thanks, Dr. Reyes [facility] 05-17-2023 Telephone encounter Note Informed patient of the CT Abdomen and Pelvis performed 05/17/23. Patient verbally understood with no further questions. Per patient request, I will send results to Dr. Zimmerman. [facility] 04-23-[address] Keita ordered a CT with contrast for the patient. He has had a rash in the past, that was caused by Iodinated contrast during imaging. [facility] Radiology recommends that the patient be treated with Prednisone & Benadryl, prior to the procedure & Dr. Keita is expected to order that for him. The following is what would be needed: Prednisone 15 mg AT 13 hrs and 7 hrs prior. At 1 hour prior he would take 50 mg of Benadryl, and again 15 mg of Prednisone Message came from Jess at [employer]. # [phone]. Thanks!! Ana ----- Message from Ángel Keita DO sent at 04/25/2023 7:03 PM EST ----- Regarding: RE: PREVIOUS ALLERGY TO CONTRAST Order placed for prednisone but patient will need to pickup benadryl OTC and give instructions on when to take and how much. Thanks, Dr. Snow ----- Message ----- From: Ana Koehler CMA Sent: 04/23/2023 10:27 AM EST To: Ángel Keita DO Subject: PREVIOUS ALLERGY TO CONTRAST HELLO, You've ordered a CT with contrast for the patient. He has had a rash in the past, caused by the contrast during imaging. [facility] Radiology recommends that the patient be treated with Prednisone & Benadryl, prior to the procedure & you're expected to order that for him. The following is what would be needed: Prednisone 15 mg AT 13 hrs and 7 hrs prior. At 1 hour prior he would take 50 mg of Benadryl, and again 15 mg of Prednisone Message came from Jess at [employer]. # [phone]. Thanks!! Ana I spoke to the patient. Mr. Hussein will slate picker the Prednisone prescription which Dr Keita sent in. He'll also slate picker the Benadryl OTC. I had him write down the instructions, which were passed on to [employer]. documented in this encounter [facility] 04-23-[address] Keita ordered a CT with contrast for the patient. He has had a rash in the past, that was caused by Iodinated contrast during imaging. [facility] Radiology recommends that the patient be treated with Prednisone & Benadryl, prior to the procedure & Dr. Keita is expected to order that for him. The following is what would be needed: Prednisone 15 mg AT 13 hrs and 7 hrs prior. At 1 hour prior he would take 50 mg of Benadryl, and again 15 mg of Prednisone Message came from Jess at [employer]. # [phone]. Thanks!! Ana [facility] 04-23-2023 Telephone encounter Note ----- Message from Ángel Keita DO sent at 04/25/2023 7:03 PM EST ----- Regarding: RE: PREVIOUS ALLERGY TO CONTRAST Order placed for prednisone but patient will need to pickup benadryl OTC and give instructions on when to take and how much. Thanks, Dr. Snow ----- Message ----- From: Ana Koehler CMA Sent: 04/23/2023 10:27 AM EST To: Ángel Keita DO Subject: PREVIOUS ALLERGY TO CONTRAST HELLO, You've ordered a CT with contrast for the patient. He has had a rash in the past, caused by the contrast during imaging. [facility] Radiology recommends that the patient be treated with Prednisone & Benadryl, prior to the procedure & you're expected to order that for him. The following is what would be needed: Prednisone 15 mg AT 13 hrs and 7 hrs prior. At 1 hour prior he would take 50 mg of Benadryl, and again 15 mg of Prednisone Message came from Jess at [employer]. # [phone]. Thanks!! Ana [facility] 04-23-2023 Telephone encounter Note I spoke to the patient. Mr. Hussein will slate picker the Prednisone prescription which Dr Keita sent in. He'll also slate picker the Benadryl OTC. I had him write down the instructions, which were passed on to [employer]. [facility] 04-21-2023 History of Present illness Narrative Images from the original note were not included. [facility] [address] [place] [phone] CONSULT NOTE Rogelio Albrightnavi 67 y.o. CHIEF COMPLAINT Chief Complaint Patient presents with Abdominal Pain Right lower quadrant pain, referred by Dr. Zimmerman Rogelio Wes Hussein is a 67-year-old male presenting due to concern of RLQ swelling. Patient states he noticed it 5-6 months ago. He denies any associated pain. Denies increase in size of swelling over the past 5-6 months. Patient states he received an ultrasound which did not show any discrete masses. His past surgical history includes cholecystectomy, appendectomy, and umbilical hernia repair. Patient denies any changes in bowel movements including no blood in the stool. Denies urinary symptoms and denies nausea and vomiting. Denies recent weight changes. Patient states he quit tobacco smoking in 2003 and drinks alcohol occasionally. MEDICATION Current Outpatient Medications: aspirin 81 mg, Take 1 tablet (81 mg total) by mouth in the morning., Disp: , Rfl: bumetanide (BUMEX) 2 mg tablet, Take 1 tablet (2 mg total) by mouth daily for 360 days., Disp: 90 tablet, Rfl: 3 carvediloL (COREG) 12.5 mg tablet, TAKE 1 TABLET BY MOUTH TWICE A DAY (Patient taking differently: Take 0.5 tablets (6.25 mg total) by mouth in the morning and 0.5 tablets (6.25 mg total) in the evening. Take with meals.), Disp: 180 tablet, Rfl: 0 cholecalciferol, vitamin D3, 2,000 units capsule, Take 1 capsule (2,000 Units total) by mouth in the morning., Disp: , Rfl: choline fenofibrate (TRILIPIX) 135 mg capsule, Take 1 capsule (135 mg total) by mouth in the morning., Disp: , Rfl: cinnamon bark 500 mg capsule, Take 2 capsules (1,000 mg total) by mouth in the morning., Disp: , Rfl: DEXCOM G6 SENSOR device, , Disp: , Rfl: insulin aspart (NOVOLOG FLEXPEN U-100 INSULIN SUBQ), Inject under the skin. Sliding scale with meals, Disp: , Rfl: insulin degludec (TRESIBA FLEXTOUCH U-100 SUBQ), Inject 40 Units under the skin daily with breakfast., Disp: , Rfl: JARDIANCE 10 mg tablet tablet, Take 1 tablet (10 mg total) by mouth in the morning., Disp: , Rfl: 3 levothyroxine (SYNTHROID, LEVOTHROID) 175 MCG tablet, Take 137 mcg by mouth in the morning., Disp: , Rfl: lisinopril (PRINIVIL,ZESTRIL) 10 mg tablet, Take 1 tablet (10 mg total) by mouth in the morning., Disp: , Rfl: NON FORMULARY, Flax seed oil 1200 mg daily, Disp: , Rfl: omega-3/dha/epa/dpa/fish oil (OMEGA-3 2100 ORAL), Take by mouth., Disp: , Rfl: simvastatin (ZOCOR) 20 mg tablet, Take 1 tablet (20 mg total) by mouth once daily. (Patient taking differently: Take 1 tablet (20 mg total) by mouth nightly.), Disp: 90 tablet, Rfl: 0 tamsulosin (FLOMAX) 0.4 mg capsule,extended release 24hr, Take 1 capsule (0.4 mg total) by mouth in the morning., Disp: , Rfl: UNABLE TO FIND, Take 3 tablets by mouth in the morning. Balance of Nature- Fruits., Disp: , Rfl: UNABLE TO FIND, Take 3 tablets by mouth in the morning. Balance of Nature- Vegetables ., Disp: , Rfl: ALLERGY Allergies Allergen Reactions Blue Dye Dulaglutide Diarrhea Atorvastatin Rash Iodinated Contrast Media Rash MEDICAL HISTORY Past Medical History: Diagnosis Date Coronary artery disease Diabetes mellitus ([facility]) Diabetes mellitus type 2, controlled ([facility]) Hyperlipidemia Hypertension Hypothyroidism SURGICAL HISTORY Past Surgical History: Procedure Laterality Date APPENDECTOMY CHOLECYSTECTOMY COLONOSCOPY CORONARY ANGIOPLASTY WITH STENT PLACEMENT 2006 3 stents placed. HERNIA REPAIR umbilical hernia repair SOCIAL HISTORY Social History Socioeconomic History Marital status: Spouse name: Not on file Number of children: Not on file Years of education: Not on file Highest education level: Not on file Occupational History Not on file Tobacco Use Smoking status: Former Packs/day: 0.50 Years: 30.00 Additional pack years: 0.00 Total pack years: 15.00 Types: Cigarettes Quit date: 2003 Years since quittin.1 Smokeless tobacco: Never Tobacco comments: Quit in 2002. Vaping Use Vaping Use: Never used Substance and Sexual Activity Alcohol use: No Drug use: No Sexual activity: Not Currently Partners: Female Other Topics Concern Caffeine Use Yes Social History Narrative Not on file Social Determinants of Health Financial Resource Strain: Not on file Food Insecurity: No Food Insecurity (04/21/2023) Hunger Screening Food Insecurity - Worry: Never True Food Insecurity - Inability: Never True Transportation Needs: Not on file Physical Activity: Not on file Stress: Not on file Social Connections: Not on file Interpersonal Safety: Not on file Housing Instability: Not on file FAMILY HISTORY Family History Problem Relation Age of Onset Anemia Mother Alzheimer's disease Mother Diabetes Father Heart attack Father Cancer Father Colon cancer Father REVIEW OF SYSTEMS: Constitutional: Denies fevers, denies recent illnesses. Eyes: Denies any vision changes. ENT: Denies any throat pain. Neck: Denies any neck pain. Cardiovascular denies chest pain. Denies palpitations. Respiratory: Denies shortness of breath, denies cough, denies history of asthma or any other pulmonary illnesses. Gastrointestinal: See chief complaint. Genitourinary negative for dysuria hematuria urinary frequency or urgency. Musculoskeletal: Negative for extremity pains or joint discomfort. Neurologic: No change in sensation or paresthesias or history of seizure disorder skin: No rashes. Hematologic: No anemia. No purpura. No petechiae and no prolonged or excessive bleeding Allergic and immunologic: No pruritus. No swelling. Endocrine: No unexplained weight loss. No polydipsia. No polyuria. No polyphagia. PHYSICAL EXAM Constitutional: He is oriented to person, place, and time. Vital signs are normal. He appears well-developed and well-nourished. HEENT: Head: Normocephalic and atraumatic. Eyes: Conjunctivae, EOM and lids are normal. Neck: Trachea normal. Neck supple. No thyroid mass present. Cardiovascular: Normal rate and regular rhythm. Pulmonary/Chest: Effort normal and breath sounds normal. Abdominal: Soft. Right lower quadrant swelling which is asymmetric compared to the left lower quadrant when standing. Asymmetry resolves when supine. He exhibits no distension and no mass. There is no hepatosplenomegaly or splenomegaly. There is negative Bettencourt's sign. Musculoskeletal: Normal range of motion. Lymphadenopathy: He has no cervical adenopathy. He has no axillary adenopathy. Right: No inguinal and no supraclavicular adenopathy present. Left: No inguinal and no supraclavicular adenopathy present. Neurological: He is alert and oriented to person, place, and time. Skin: Skin is warm, dry and intact. Psychiatric: He has a normal mood and affect. His speech is normal and behavior is normal. Cognition and memory are normal. IMPRESSION 1. Asymmetry and swelling in RLQ in comparison to LLQ when standing 2. Symmetric abdomen when supine 3. Overweight ASSESSMENT & PLAN Plan for abdominal CT with contrast to rule out hernia. Patient is agreeable to use of steroids and/or benadryl prior to scan due to his iodine allergy which he states makes him pruritic and gives him hives. Evaluation included: Preparing to see the patient (e.g., review of tests) Obtaining and/or reviewing separately obtained history Performing a medically appropriate examination and/or evaluation Counseling and educating the patient/family/caregiver Referring and communicating with other health childcare director Right lower quadrant abdominal swelling [R19.03] Ángel Keita DO This note was created with the assistance of a speech recognition program. While intending to generate a timely document that accurately reflects the content of the visit, no guarantee can be provided that every grammatical or spelling mistake has been or will be identified or corrected. Thank you for your understanding. [facility] Evaluation note Encounter Date Diagnosis Assessment Notes Jan, Right lower quadrant abdominal pain (ICD-10 - R10.31) [employer] Other 12-11-2023 Evaluation note* Encounter Date Diagnosis Assessment Notes Treatment Notes Treatment Clinical Notes Jan, Abdominal mass, right lower quadrant (ICD-10 - R19.03) agrees to US to assess. Discussed differential including hernia Jan, Benign essential HTN (ICD-10 - I10) BP presently normal. Denies symptoms of hypotension, will monitor [employer] Other 12-04-2023 Evaluation note* Encounter Date Diagnosis [...] DE instructed on application/and set up with pipe assembly worker today. Jan, Hyperlipidemia (ICD-10 - E78.5) Managing your cholesterol material was published 06/2022 ldl 60 at target on statin Jan, HTN (hypertension) (ICD-10 - I10) Managing high blood pressure material was published on maryse Jan, intermediate frame tender current use of insulin (ICD-10 - Z79.4) Jan, BMI 34.0-34.9,adult (ICD-10 - Z68.34) Setting weight-loss goals material was published Jan, Low blood pressure reading (ICD-10 - R03.1) Denied s&s hypotension i.e. dizzy, lightheaded. Recommend f/u with pcp for further evaluation [employer] Other 09-28-2023 Evaluation note* Encounter Date Diagnosis [...] Pt verbalizes understanding. Pt brought dexcom g7 pipe assembly worker/sensor with him today asking for instruction on [...] DE instructed on application/and set up with pipe assembly worker today. Oct, Hyperlipidemia (ICD-10 - E78.5) Managing your cholesterol material was published 06/2022 ldl 60 at target on statin Oct, HTN (hypertension) (ICD-10 - I10) Managing high blood pressure material was published on maryse Oct, penitentiary current use of insulin (ICD-10 - Z79.4) Oct, BMI 34.0-34.9,adult (ICD-10 - Z68.34) Setting weight-loss goals material was published [employer] Other 08-23-2023 Evaluation note* Encounter Date Diagnosis [...] is asking medication refill be sent to [email or web address]. Pt reports he did restart trulicity 3mg [...] or diabetes medication issues. 6. Prescriptions: [facility], Trulicity, Novolog, pen needles sent 10/21/22 7. [...] pressure material was published on maryse Sep, penitentiary current use of insulin (ICD-10 - Z79.4) Sep, BMI 34.0-34.9,adult (ICD-10 - Z68.34) Setting weight-loss goals material was published [employer] Other 08-15-2023 Evaluation note* Encounter Date Diagnosis [...] on the machine. Pt is established w [facility] - will notify their office. Pt given samples of Eliquis and will hopefully see their providers soon. Last creatinine was 1.5. 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 Will first start with completely stopping the Trulicity and monitoring symptoms. Will call on 05/01 as he just took med on 04/20. Apr, Diarrhea, unspecified (ICD-10 - R19.7) [employer] Other 05-12-2022 Evaluation note* Encounter Date Diagnosis [...] 7.5% 2. Blood glucose levels according to [employer] g6 cgm download 06/27/2021- 2: Avg glucose [...] pressure material was published on maryse June, penitentiary current use of insulin (ICD-10 - Z79.4) June, BMI 33.0-33.9,adult (ICD-10 - Z68.33) Deciphering the nutrition facts label material was published June, Rachell Mercado got a new phone and it is not compatible with The Dexcom G6 franklin. He is currently using a dexcom pipe assembly worker and carries it in his back pocket. I advised him to not carry it in his back pocket because it could damage the device. He was shown a belt clip on [employer] that he can place on the back of the device and wear it on his belt. [employer] Other 02-01-2022 Evaluation note* Encounter Date Diagnosis [...] pressure material was published on maryse Apr, penitentiary current use of insulin (ICD-10 - Z79.4) Apr, BMI 33.0-33.9,adult (ICD-10 - Z68.33) 5 pound weight loss from last visit, continue with weight loss efforts [employer] Other 11-09-2021 Evaluation note* Encounter Date Diagnosis [...] fingerstick if not feeling well or if pipe assembly worker prompts to calibrate. 30 minutes was spent on education by Aldair GONZALEZ, RN [employer] Other 11-08-2021 Evaluation note* Encounter Date Diagnosis Assessment Notes Treatment Notes Treatment Clinical Notes Dec, Type 2 diabetes mellitus with hyperglycemia (ICD-10 - E11.65) Reviewed dexcom g6 download 12/21/2020-2020: Avg glucose 170. >250-3%, >180-33%, 70-180-63%, <70-1%, <54-0%. Will modify corrective scale. [employer] CODING COMPLIANCE SPECIALIST, WEIGHT CONTROL LECTURER-C, BC-ADM Patient in today for review of [...] and application. Assisted patient to downlioad Basim Conv[employer] franklin on cell phone. Instructed patient to [...] spent on education by Ayah GONZALEZ, RN. [employer] Other 10-26-2021 Evaluation note* Encounter Date Diagnosis [...] pen needles, lancets, test strips sent to [facility]. Sample dexcom g6 cgm/transmitter and novolog u100 pen with pen needles given today. 7. Return in 10 days for dexcom g6 download, review. Nov, Hyperlipidemia (ICD-10 - E78.5) Managing your cholesterol material was published 05/2020 ldl 53 at target on statin Nov, HTN (hypertension) (ICD-10 - I10) Managing high blood pressure material was published on maryse Nov, intermediate frame tender current use of insulin (ICD-10 - Z79.4) [...] fingerstick if not feeling well or if pipe assembly worker prompts to calibrate. Instructed to return in 10 days for follow up. 30 minutes was spent on education by Aldair GONZALEZ, RN. [employer] Other Evaluation noteNo [employer]Nort [employer] Other Evaluation noteNo assessment information available [facility] Work Phone: Evaluation note* Diagnosis Right lower quadrant abdominal swelling- Primary Class 3 severe obesity due to excess calories with serious comorbidity in adult, unspecified BMI ([facility]) History of insulin dependent diabetes mellitus Type 2 diabetes mellitus without complication, unspecified whether director long term care insulin use ([facility]) Stage 3a chronic kidney disease (CKD) ([facility]) Coronary artery disease involving [place] coronary artery of [place] heart with angina pectoris ([facility]) [facility] Right lower quadrant abdominal swelling documented [facility]* Diagnosis Onset Date Resolution Status Hypothyroidism, unspecified acute [facility] Work Phone: Evaluation note* Diagnosis Onset Date Resolution Status Bronchitis acute Fatty liver disease, nonalcoholic acute Hypothyroidism, unspecified acute Dietary counseling and surveillance acute Hyperlipidemia acute Hypertension acute Type 2 diabetes mellitus acu te [facility] Work Phone: History general Narrative - Reported* Type Description Date Medical History heart disease Medical History diabetes mellitus Medical History hyperlipidemia Medical History CRF stage 3 Medical History thyroid disease Surgical History heart stent Surgical History gall bladder Surgical History appendectomy Surgical History Neck Surgery Surgical History colonoscopy 09/2019 Hospitalization History See above Hospitalization History Irregular heartbeat 12/30 8 [employer] Other InstructionsNot on filedocumented in this encounter [facility] on filedocumented in this encounter [facility] this [facility] filedocumented in this encounter [facility] filed[facility]ed in this [facility] Summary Purpose Family History Relationship Condition Age at Onset Recorded Date/T sekou daughter Unknown father Family history of colon cancer Unknown Malignant neoplasm Unknown Diabetes mellitus Unknown Unknown Advance Directives Latest Code Status on File Code Status Date Activated Date Inactivated Comments Full Code 01/11/2018 2:47 AM 01/11/2018 6:43 PM Advance Directive Response Recorded Date/ Time Advance Directives No August 10 2:26pm Latest Code Status on File Code Status Date Activated Date Inactivated Comments Full Code 01/11/2018 2:47 AM 01/11/2018 6:43 PM Advance Directive Response Recorded Date/ Time Advance Directives No August 10 3:26pm Reason for Referral Specialty Diagnoses / Procedures Referred By Sampson kc Referred To Contact Radiology Diagnoses Right lower quadrant abdominal swelling Procedures CT abdomen and pelvis with contrast Ángel Keita DO [address] [place] [address] [address] Phone: [phone] Referral ID Status Reason Start Date Expiration Date V isits Requested Visits Authorized [id number] Pending Review 04/21/2023 04/20/2024 1 1 Reason *FU 03/30 last OV and scan. Diagnosis 1 Right lower quadrant abdominal pain (R10.31) Referral Organization [facility] Janett gould Referring Provider First Name Cheryl Referring Provider Last Name Elsie Referring Provider Specialty Family [facility] Referred Organization [facility] Referred Provider Ángel Keita Referred Address [address] [facility],[place], [place],[address] Referred Provider Specialty Surgery Referral Priority Routine General Notes Emmy Mendez 04:46:33 PM >received today, attachments made, notes locked, referral faxed Clinical Notes p:[id number] f: [id number] Chief Complaint and Reason for Visit Chief Complaint 3 Month Follow Up e11.29 4 Month Follow Up Chief Complaint 4 MONTH CHECK UP Reason for Visit Hypothyroidism, unsp ecified Chief Complaint 4 MONTH CHECK UP meter Reason for Visit Bronchitis Fatty liver disease, nonalcoholic Hypothyroidism, unspecified Dietary counseling and surveillance Hyperlipidemia Hypertension Type 2 diabetes mellitus Additional Source Comments REASON FOR VISIT (unrecogniz ed section and content) Reason Onset Date Comments Med Refill 03/26/2023 Reason Comments Abdominal Pain Right lower quadrant pain, referred by Dr. Zimmerman (unrecognized sect ion and content) No Status Records FoundNo Status Records FoundNo Status Records FoundNo Status Records Found INFORMATION SOURCE (unrecogn ized section and content) DATE CREATED AUTHOR 07/14/2022 [facility] DATE CREATED AUTHOR AUTHOR'S ORGANIZ ATION 04/15/2023 [facility] DATE CREATED AUTHOR AUTHOR'S ORGANIZ ATION 04/29/2023 [facility] DATE CREATED AUTHOR AUTHOR'S ORGANIZ ATION 05/18/2023 [facility] Care Teams (unrecognized sec tion and content) Team Status: Active Member Role Status Dates Cheryl Zimmerman MD Primary Care Provider Active Team Status: Active Member Role Status Dates Cheryl Zimmerman MD Primary Care Provide r, Attending Provider Active Start: April 22, 2023 Team Status: Inactive Member Role Status Dates Cheryl Zimmerman MD Primary Care Provide r, Attending Provider Active Start: June 10, 2023 End: June 10, 2023 Offset Pressman Relationship Specialty Start Date End Date Cheryl Zimmerman MD [address] [place] [address] PCP - General 05/21/17 Team Status: Inactive Member Role Status Dates Jerrell Merchant APRN Attending Provider Active Start: February 01, 2023 End: February 01, 2023 Team Status: Inactive Member Role Status Dates Cheryl Zimmerman MD Primary Care Provider Active Start: February 01, 2023 End: February 01, 2023 Jerrell Merchant APRN Attending Provider Active Start: February 01, 2023 End: February 01, 2023 Team Status: Inactive Member Role Status Dates Cheryl Zimmerman MD Attending Provider Active St art: February 08, 2023 End: February 08, 2023 Offset Pressman Relationship Specialty Start Date End Date Cheryl Zimmerman MD [address] [place] [address] PCP - General 05/21/17 Offset Pressman Relationship Specialty Start Date End Date Cheryl Zimmerman MD [address] [place] [address] [id number] PCP - General 05/21/17 Offset Pressman Relationship Specialty Start Date End Date Cheryl Zimmerman MD [address] [place] [id number] PCP - General 05/21/17 Offset Pressman Relationship Specialty Start Date End Date Cheryl Zimmerman MD [address] [place] [address] [phone] PCP - General 05/21/17 Offset Pressman Relationship Specialty Start Date End Date Cheryl Zimmerman MD [address] [place] [address] [id number] PCP - General 05/21/17 Team Status: Inactive Member Role Status Dates Cheryl Zimmerman MD Primary Care Provider Active Start: June 22, 2023 End: June 22, 2023 Jerrell Merchant APRN Attending Provider Active Start: June 22, 2023 End: June 22, 2023 Goals (unrecognized section and content) Goals [...] BE BASED ON THE PRIMARY CLINICAL RECORDS. [facility]. provides no warranty or guarantee of the accuracy or completeness of information in this document.
[2023-06-24 09:02] LABS: Thyroid Stimulating Hormone 0.485 uIU/mL (0.358-3.740)
[2023-06-24 09:28] LABS: Free T4 1.41 ng/dL (0.76-1.46)
== END 2023-06-24 07:51 | disposition home or self-care (01) ==
PROVIDERS: PCP Family Medicine; Visit Provider Family Medicine
DX: E11.22 Type 2 diabetes mellitus with diabetic chronic kidney disease (principal); N18.32 Chronic kidney disease, stage 3b; Z79.4 Long term (current) use of insulin; E03.9 Hypothyroidism, unspecified
CPT/HCPCS: 36415; 80053; 80061; 82043; 82570; 84439; 84443; 84681

== ENCOUNTER 2023-06-24 07:55 | Outpatient (OUT) | payer MEDICARE, BC, SELFPAY ==
--- OUTSIDE RECORDS SUMMARY | 2023-06-24 07:59 | XMS_ITS | CCD ---
Author Organization [facility] Care Team Providers Care Filer Metal Patterns Name Role Phone Jovany Merchanta Unavailable Cheryl [...] Provider MD Cheryl Zimmerman Primary Care Provider [phone] WILFREDO Merchant Attending Provider Jerrell Merchant Attending Unavailable Jerrell Merchant K [...] of Onset Reaction(s) Facility (20 sources) [facility] Blue 1 Drug allergy Unknown Executive Caddie Other (3 sources) atorvastatin; Translations: [ATORVASTATIN] Drug Allergy 6 [facility] (1 source) Iodine (And Iodine Containting Drugs) Drug allergy (disorder) 3 [facility] (18 sources) dulaglutide; Translations: [DULAGLUTIDE] Drug Allergy 3 Diarrhea [facility] (6 sources) atorvastatin Drug Allergy 6 [facility] (8 sources) Iodinated Contrast Media; Translations: [IODINATED CONTRAST MEDIA] Propensity to adverse reactions to drug 6 [facility] (9 sources) blue dye; Translations: [blue dye] Allergy to substance 3 [facility] (1 source) dulaglutide Drug Allergy 3 [facility] Repository (2 sources) Contrast media Allergy to substance 4 [facility] Medications Current Medications Medication Drug Class(es) [...] a day Active blood-glucose meter,continuous ([employer]ex[employer] G7 Technician) (1 source) Start: 06-22-2023 blood-glucose meter,continuous (Dexcom G7 Technician) Active .ROUTE June 22, 2023 12:00am blood-glucose [...] 9:35am Start: 12-13-2018 take 1 tablet by [facility] in the morning JARDIANCE 10 mg tablet [...] Jaquez Start: 03-31-2023 take 1 capsule by [facility] in the morning choline fenofibrate (TRILIPIX) 135 mg capsule Take 1 capsule (135 mg total) by mouth in the morning. 0 03/31/2023 Active take 1 capsule by [facility] every twenty-four hours Fenofibric Acid 135 MG [...] seed oil 1200 mg daily 0 Active Cheraw 3-Rmo-Fvm-Fish Oil (Fish Oil) 1,000 mg (120 mg-180 mg) capsule (2 sources) Start: 4 take 1 capsule by mouth once daily Cheraw 7-Tbi-Ksa-Fish Oil (Fish Oil) 1,000 mg (120 mg-180 [...] for 30 day(s) Dec, Active FreeStyle Basim [place] - (8 sources) Start: 03-14-2019 FreeStyle Libr e [place] - as directed use with 14 days [...] angina pectoris; Translations: [Atherosclerotic heart disease of [place] coronary artery without angina pectoris] Onset: 02-17-2013 [...] sources) Long-term current use of insulin; Translations: [FDC (current) use of insulin] Episodic Other aftercare (6 sources) 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; Translations: [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 Z79.4] Onset: 12-24-2020 [...] Driscoll MD on 05/17/2023 9:08 AM Normal [facility] Creatinine includes GFR, ser umon 04-22-2023 [facility] Estimated glomerular filtrat ion rate (GFR) non- Americanon 04-22-2023 GFR/1.73 sq M.predicted among non-blacks MDRD (S/P/Bld) [Vol rate/Area] 31 mL/min/{1.73_m2} >=60 [facility] - Chemistry and C hemistry - challengeon 04-22-2023 Creatinine [Mass/Vol] 2.12 mg/dL 0.70-1.30 [facility] GFR/1.73 sq M.predicted MDRD (S/P/Bld) [Vol rate/Area] 38 mL/min/{1.73_m2} >=60 [facility] A1C with Estimated Average [facility] 02-01-2023 Glucose [Mass/Vol] 160 mg/dL Normal [facility] Comment on above: Order Comment: Reaso n for Exam Type 2 diabetes mellitus with hyperglycemia Result Comment: PERF ORMED BY: [place] [address] PATHOLOGIST PSYCHOLOGY ASSISTANT HARI ANGEL M.D. Performed By: #### A 1C [facility] #### [address] HbA1c (Bld) [Mass fraction] 7.2 % High 4.3-5.6 [facility] Comment on above: Order Comment: Reaso n for Exam Type 2 diabetes mellitus with hyperglycemia Result Comment: Incr eased risk for diabetes: 5.7 - 6.4 diabetes: >6.4 glycemic control for adults with diabetes: <7.0 Performed By: #### A 1C [facility] #### [facility] [address] [id number] [facility] HbA1c (Bld) [Mass fraction] 7.200 % High 4.3-5.6 % Executive Caddie Other HbA1c (Bld) [Mass fraction] 160 mg/dL Executive Caddie Other Glucose - FINGER STICKon Glucose [Mass/Vol] 127 mg/dL Executive Caddie Other Glucose mean value [Mass/vol ume] in Blood Estimated from glycated hemoglobinOrdered By: Jerrell Merchant on 02-01-2023 Average glucose Estimated from glycated hemoglobin (Bld) [Mass/Vol] 160 mg/dL [facility] Hemoglobin A1c percentageOrd ered By: Jerrell Merchant on 02-01-2023 HbA1c (Bld) [Mass fraction] 7.2 % 4.3-5.6 [facility] Comment on above: Increased risk for d iabetes: 5.7 - 6.4diabetes: >6.4glycemic control for adults with diabetes: <7.0 Glucose - FINGER STICKon Glucose [Mass/Vol] 96 mg/dL Executive Caddie Other A1C HEMOGLOBINon 10-21-2022 HbA1c (Bld) [Mass fraction] 13.1 % Executive Caddie Other Glucose - FINGER STICKon Glucose [Mass/Vol] 304 mg/dL Executive Caddie Other HbA1c (Bld) [Mass fraction]o n 10-21-2022 A1C HEMOGLOBIN [employer] Other FREE T4on 07-13-2022 Free T4 [Mass/Vol] 1.38 ng/dL Normal 0.76-1.46 [facility] Comment on above: Performed By: #### F T4 #### [facility] [address] [address] [address] Noreen Tao PROF CHEM 8 (BAS METB)on Anion gap [Moles/Vol] 12.8 mmol/L Normal [facility] Comment on above: Performed By: #### B MP, TSH #### [facility] [address] [address] [address] Noreen Tao Calcium [Mass/Vol] 9.3 mg/dL Normal 8.5-10.1 [facility] Comment on above: Performed By: #### B MP, TSH #### [facility] [address] [place] [address] Dr. Noreen Tao Chloride [Moles/Vol] 106 mmol/L Normal 98-107 [facility] Comment on above: Performed By: #### B MP, TSH #### [facility] [address] [place] [address] Dr. Noreen Tao CO2 [Moles/Vol] 30.7 mmol/L Normal 21.0-32.0 [facility] Comment on above: Performed By: #### B MP, TSH #### [facility] [address] [place] [address] Dr. Noreen Tao Creatinine [Mass/Vol] 1.45 mg/dL Critically high 0.70-1.30 [facility] Comment on above: Performed By: #### B MP, TSH #### [facility] [address] [place] [address] Dr. Noreen Tao EGFR-AF SERBIAN 59 mL/min/1.73m2 Critically low >=60 [facility] Comment on above: Performed By: #### B MP, TSH #### [facility] [address] [place] [address] Dr. Noreen Tao EGFR-NON AF SERBIAN 49 mL/min/1.73m2 Critically low >=60 [facility] Comment on above: Performed By: #### B MP, TSH #### [facility] [address] [address] [address] Noreen Tao Glucose [Mass/Vol] 129 mg/dL Critically high 74-106 [facility] Comment on above: Performed By: #### B MP, TSH #### [facility] [address] [address] [address] Noreen Tao Potassium [Moles/Vol] 4.5 mmol/L Normal 3.5-5.1 [facility] Comment on above: Performed By: #### B MP, TSH #### [facility] [address] [address] [address] Noreen Tao Sodium [Moles/Vol] 145 mmol/L Normal 136-145 [facility] Comment on above: Performed By: #### B MP, TSH #### [facility] [address] [address] [address] Noreen Tao Urea nitrogen [Mass/Vol] 20.0 mg/dL Critically high 7.0-18.0 [facility] Comment on above: Performed By: #### B MP, TSH #### [facility] [address] [address] [address] Noreen Tao Urea nitrogen/Creatinine [Mass ratio] 13.8 mg/mg Normal [facility] Comment on above: Performed By: #### B MP, TSH #### [facility] [address] [address] [address] Noreen Tao TSHon 07-13-2022 TSH 2.373 uIU/mL Normal 0.358-3.740 [facility] Comment on above: Performed By: #### B MP, TSH #### [facility] [address] [address] [address] Noreen Tao LIPID PROFILEon 07-09-2022 CHOL-HDL RATIO NORM SEE BELOW Normal [facility] Comment on above: Result Comment: 3.3 - 4.4 LOW RISK 4.4 - 7.1 AVERAGE RISK 7.1 - 11.0 MODERATE RISK >11.0 HIGH RISK Performed By: #### B MP, TSH #### [facility] [address] [address] [address] Noreen Tao Cholesterol [Mass/Vol] 120 mg/dL Normal <=200 [facility] Comment on above: Performed By: #### B MP, TSH #### [facility] [address] [address] [address] Noreen Tao Cholesterol in HDL [Mass/Vol] 35 mg/dL Critically low 40-60 [facility] Comment on above: Performed By: #### B MP, TSH #### [facility] [address] [address] [address] Noreen Tao Cholesterol in LDL [Mass/Vol] 60.0 mg/dL Normal [facility] Comment on above: Performed By: #### B MP, TSH #### [facility] [address] [address] [address] Noreen Tao Cholesterol.total/Cho lesterol in HDL [Mass ratio] 3.4 {ratio} Normal [facility] Comment on above: Performed By: #### B MP, TSH #### [facility] [address] [address] [address] Noreen Tao HDL NORMAL > or = 60 mg/dl - LOW CARDIOVASCULAR RISK <40 mg/dl - HIGH CARDIOVASCULAR RISK Normal [facility] Comment on above: Performed By: #### B MP, TSH #### [facility] [address] [address] [address] Noreen Tao LDL CALC NORMAL SEE BELOW Normal [facility] Comment on above: Result Comment: <100 mg/dl OPTIMAL 100 - 129 mg/dl NEAR OR ABOVE OPTIMAL 130 - 159 mg/dl BORDERLINE HIGH 160 - 189 mg/dl HIGH >190 mg/dl VERY HIGH Performed By: #### B MP, TSH #### [facility] [address] [address] [address] Noreen Tao Triglyceride [Mass/Vol] 125 mg/dL Normal <=150 [facility] Comment on above: Performed By: #### B MP, TSH #### [facility] [address] [address] [address] Noreen Tao VLDL CALC 25.0 mg/dL Normal [facility] Comment on above: Performed By: #### B MP, TSH #### [facility] [address] [address] [address] Noreen Tao MICROALB CREAT RATIO RANDOMo n 07-09-2022 mALB 2.0 mg/dL Normal <=30.0 [facility] Comment on above: Performed By: #### M CRR #### [facility] [address] [place] [address] Dr. Noreen Tao MALB CR RATIO 24.3 mg/g Normal 0.0-29.9 [facility] Comment on above: Performed By: #### M CRR #### [facility] [address] [place] [address] Dr. Noreen Tao MALB CR RATIO RANGE SEE BELOW Normal [facility] Comment on above: Result Comment: NO M ICROALBUMINURIA 0-29 MG/G CLINICAL MICROALBUMINURIA 30-300 MG/G MACROALBUMINURIA >300 MG/G Performed By: #### M CRR #### [facility] [address] [place] [address] Dr. Noreen Tao URINE CREAT 82.16 mg/dL Normal 20.00-300.00 [facility] Comment on above: Performed By: #### M CRR #### [facility] [address] [place] [address] Dr. Noreen Tao PROF 14(COMP METB)on 023 Albumin [Mass/Vol] 3.6 g/dL Normal 3.4-5.0 [facility] Comment on above: Performed By: #### C MP, LIPID #### [facility] [address] [place] [address] Dr. Noreen Tao Albumin/Globulin [Mass ratio] 0.8 {ratio} Normal [facility] Comment on above: Performed By: #### C MP, LIPID #### [facility] [address] [place] [address] Dr. Noreen Tao ALP [Catalytic activity/Vol] 81 U/L Normal 46-116 [facility] Comment on above: Performed By: #### C MP, LIPID #### [facility] [address] [address] [address] Noreen Tao ALT [Catalytic activity/Vol] 60 U/L Normal 16-63 [facility] Comment on above: Performed By: #### C MP, LIPID #### [facility] [address] [address] [address] Noreen Tao Anion gap [Moles/Vol] 10.2 mmol/L Normal [facility] Comment on above: Performed By: #### C MP, LIPID #### [facility] [address] [address] [address] Noreen Tao AST [Catalytic activity/Vol] 27 U/L Normal 15-37 [facility] Comment on above: Performed By: #### C MP, LIPID #### [facility] [address] [place] [address] Dr. Noreen Tao Bilirubin [Mass/Vol] 0.8 mg/dL Normal 0.2-1.0 [facility] Comment on above: Performed By: #### C MP, LIPID #### [facility] [address] [place] [address] Dr. Noreen Tao Calcium [Mass/Vol] 9.2 mg/dL Normal 8.5-10.1 [facility] Comment on above: Performed By: #### C MP, LIPID #### [facility] [address] [place] [address] Dr. Noreen Tao Chloride [Moles/Vol] 106 mmol/L Normal 98-107 [facility] Comment on above: Performed By: #### C MP, LIPID #### [facility] [address] [place] [address] Dr. Noreen Tao CO2 [Moles/Vol] 30.1 mmol/L Normal 21.0-32.0 [facility] Comment on above: Performed By: #### C MP, LIPID #### [facility] [address] [place] [address] Dr. Noreen Tao Creatinine [Mass/Vol] 1.50 mg/dL Critically high 0.70-1.30 [facility] Comment on above: Performed By: #### C MP, LIPID #### [facility] [address] [address] [address] Noreen Tao EGFR-AF SERBIAN 57 mL/min/1.73m2 Critically low >=60 [facility] Comment on above: Performed By: #### C MP, LIPID #### [facility] [address] [address] [address] Noreen Tao EGFR-NON AF SERBIAN 47 mL/min/1.73m2 Critically low >=60 [facility] Comment on above: Performed By: #### C MP, LIPID #### [facility] [address] [address] [address] Noreen Tao Globulin (S) [Mass/Vol] 4.7 g/dL Normal [facility] Comment on above: Performed By: #### C MP, LIPID #### [facility] [address] [address] [address] Noreen Tao Glucose [Mass/Vol] 148 mg/dL Critically high 74-106 [facility] Comment on above: Performed By: #### C MP, LIPID #### [facility] [address] [address] [address] Noreen Tao Potassium [Moles/Vol] 5.3 mmol/L Critically high 3.5-5.1 [facility] Comment on above: Performed By: #### C MP, LIPID #### [facility] [address] [address] [address] Noreen Tao Protein [Mass/Vol] 8.3 g/dL Critically high 6.4-8.2 [facility] Comment on above: Performed By: #### C MP, LIPID #### [facility] [address] [address] [address] Noreen Tao Sodium [Moles/Vol] 141 mmol/L Normal 136-145 [facility] Comment on above: Performed By: #### C MP, LIPID #### [facility] [address] [address] [address] Noreen Tao Urea nitrogen [Mass/Vol] 31.0 mg/dL Critically high 7.0-18.0 [facility] Comment on above: Performed By: #### C MP, LIPID #### [facility] [address] [place] [address] Dr. Noreen Tao Urea nitrogen/Creatinine [Mass ratio] 20.7 mg/mg Normal [facility] Comment on above: Performed By: #### C MP, LIPID #### [facility] [address] [place] [address] Dr. Noreen Tao BNPon 06-11-2022 Natriuretic peptide B (Bld) [Mass/Vol] 105.0 pg/mL Normal <=900.0 [facility] Comment on above: Performed By: #### B SPIKE DRIVER, TSH, CMP #### [facility] [address] [place] [address] Dr. Noreen Tao CBC AUTO DIFFon 06-11-2022 BASO # 0.1 103/ul Normal 0.0-0.1 [facility] Comment on above: Performed By: #### C BC #### [facility] [address] [place] [address] Dr. Noreen Tao Basophils/100 WBC (Bld) 1.0 % Normal 0.2-2.0 [facility] Comment on above: Performed By: #### C BC #### [facility] [address] [place] [address] Dr. Noreen Tao EO # 0.2 103/ul Normal 0.0-0.7 [facility] Comment on above: Performed By: #### C BC #### [facility] [address] [place] [address] Dr. Noreen Tao Eosinophils/100 WBC (Bld) 3.1 % Normal 0.9-7.0 [facility] Comment on above: Performed By: #### C BC #### [facility] [address] [place] [address] Dr. Noreen Tao Erythrocyte distribution width (RBC) [Ratio] 14.1 % Normal 11.0-15.0 [facility] Comment on above: Performed By: #### C BC #### [facility] [address] [place] [address] Dr. Noreen Tao Hematocrit (Bld) [Volume fraction] 47.2 % Normal 42.0-54.0 [facility] Comment on above: Performed By: #### C BC #### [facility] [address] [place] [address] Dr. Noreen Tao Hemoglobin (Bld) [Mass/Vol] 15.3 g/dL Normal 14.0-18.0 [facility] Comment on above: Performed By: #### C BC #### [facility] [address] [place] [address] Dr. Noreen Tao IG # 0.01 10e3/ul Normal 0.00-0.03 [facility] Comment on above: Performed By: #### C BC #### [facility] [address] [place] [address] Dr. Noreen Tao IG % 0.2 % Normal 0.0-0.5 [facility] Comment on above: Performed By: #### C BC #### [facility] [address] [place] [address] Dr. Noreen Tao LYMPH # 2.3 103/ul Normal 1.2-3.8 [facility] Comment on above: Performed By: #### C BC #### [facility] [address] [place] [address] Dr. Noreen Tao Lymphocytes/100 WBC (Bld) 40.4 % Normal 20.5-60.0 [facility] Comment on above: Performed By: #### C BC #### [facility] [address] [place] [address] Dr. Noreen Tao MANUAL DIFF REQ NO Normal [facility] Comment on above: Performed By: #### C BC #### [facility] [address] [place] [address] Dr. Noreen Tao MCH (RBC) [Entitic mass] 28.9 pg Normal 25.9-34.0 [facility] Comment on above: Performed By: #### C BC #### [facility] [address] [place] [address] Dr. Noreen Tao MCHC (RBC) [Mass/Vol] 32.4 g/dL Normal 29.9-35.2 [facility] Comment on above: Performed By: #### C BC #### [facility] [address] [address] [address] Noreen Tao MCV (RBC) [Entitic vol] 89.2 fL Normal 80.0-94.0 [facility] Comment on above: Performed By: #### C BC #### [facility] [address] [address] [address] Noreen Tao MONO # 0.4 103/ul Normal 0.3-0.8 [facility] Comment on above: Performed By: #### C BC #### [facility] [address] [address] [address] Noreen Tao Monocytes/100 WBC (Bld) 7.2 % Normal 1.7-12.0 [facility] Comment on above: Performed By: #### C BC #### [facility] [address] [address] [address] Noreen Tao NEUT # 2.8 103/ul Normal 1.4-6.5 [facility] Comment on above: Performed By: #### C BC #### [facility] [address] [address] [address] Noreen Tao Neutrophils/100 WBC (Bld) 48.1 % Normal 43.0-75.0 [facility] Comment on above: Performed By: #### C BC #### [facility] [address] [address] [address] Noreen Tao Platelet mean volume (Bld) [Entitic vol] 9.6 fL Normal 9.5-13.5 [facility] Comment on above: Performed By: #### C BC #### [facility] [address] [address] [address] Noreen Tao PLT 182 103/ul Normal 150-450 [facility] Comment on above: Performed By: #### C BC #### [facility] [address] [address] [address] Noreen Tao RBC 5.29 106/ul Normal 4.70-6.10 [facility] Comment on above: Performed By: #### C BC #### [facility] [address] [place] [address] Dr. Noreen Tao WBC 5.7 103/ul Normal 4.0-11.0 [facility] Comment on above: Performed By: #### C BC #### [facility] [address] [place] [address] Dr. Noreen Tao FREE T4on 06-11-2022 Free T4 [Mass/Vol] 0.14 ng/dL Critically low 0.76-1.46 [facility] Comment on above: Performed By: #### F T4 #### [facility] [address] [place] [address] Dr. Nroeen Tao PROF 14(COMP METB)on 023 Albumin [Mass/Vol] 4.0 g/dL Normal 3.4-5.0 [facility] Comment on above: Performed By: #### B SPIKE DRIVER, TSH, CMP #### [facility] [address] [place] [address] Dr. Noreen Tao Albumin/Globulin [Mass ratio] 1.0 {ratio} Normal [facility] Comment on above: Performed By: #### B SPIKE DRIVER, TSH, CMP #### [facility] [address] [place] [address] Dr. Noreen Tao ALP [Catalytic activity/Vol] 68 U/L Normal 46-116 [facility] Comment on above: Performed By: #### B SPIKE DRIVER, TSH, CMP #### [facility] [address] [place] [address] Dr. Noreen Tao ALT [Catalytic activity/Vol] 235 U/L Critically high 16-63 [facility] Comment on above: Performed By: #### B SPIKE DRIVER, TSH, CMP #### [facility] [address] [place] [address] Dr. Noreen Tao Anion gap [Moles/Vol] 8.2 mmol/L Normal [facility] Comment on above: Performed By: #### B SPIKE DRIVER, TSH, CMP #### [facility] [address] [place] [address] Dr. Noreen Tao AST [Catalytic activity/Vol] 141 U/L Critically high 15-37 [facility] Comment on above: Performed By: #### B SPIKE DRIVER, TSH, CMP #### [facility] [address] [place] [address] Dr. Noreen Tao Bilirubin [Mass/Vol] 0.7 mg/dL Normal 0.2-1.0 [facility] Comment on above: Performed By: #### B SPIKE DRIVER, TSH, CMP #### [facility] [address] [place] [address] Dr. Noreen Tao Calcium [Mass/Vol] 9.6 mg/dL Normal 8.5-10.1 [facility] Comment on above: Performed By: #### B SPIKE DRIVER, TSH, CMP #### [facility] [address] [place] [address] Dr. Noreen Tao Chloride [Moles/Vol] 103 mmol/L Normal 98-107 [facility] Comment on above: Performed By: #### B SPIKE DRIVER, TSH, CMP #### [facility] [address] [place] [address] Dr. Noreen Tao CO2 [Moles/Vol] 33.6 mmol/L Critically high 21.0-32.0 [facility] Comment on above: Performed By: #### B SPIKE DRIVER, TSH, CMP #### [facility] [address] [place] [address] Dr. Noreen Tao Creatinine [Mass/Vol] 1.98 mg/dL Critically high 0.70-1.30 [facility] Comment on above: Performed By: #### B SPIKE DRIVER, TSH, CMP #### [facility] [address] [place] [address] Dr. Noreen Tao EGFR-AF SERBIAN 41 mL/min/1.73m2 Critically low >=60 [facility] Comment on above: Performed By: #### B SPIKE DRIVER, TSH, CMP #### [facility] [address] [place] [address] Dr. Noreen Tao EGFR-NON AF SERBIAN 34 mL/min/1.73m2 Critically low >=60 [facility] Comment on above: Performed By: #### B SPIKE DRIVER, TSH, CMP #### [facility] [address] [address] [address] Noreen Tao Globulin (S) [Mass/Vol] 4.0 g/dL Normal [facility] Comment on above: Performed By: #### B SPIKE DRIVER, TSH, CMP #### [facility] [address] [place] [address] Dr. Noreen Tao Glucose [Mass/Vol] 65 mg/dL Critically low 74-106 [facility] Comment on above: Performed By: #### B SPIKE DRIVER, TSH, CMP #### [facility] [address] [place] [address] Dr. Noreen Tao Potassium [Moles/Vol] 4.8 mmol/L Normal 3.5-5.1 [facility] Comment on above: Performed By: #### B SPIKE DRIVER, TSH, CMP #### [facility] [address] [place] [address] Dr. Noreen Tao Protein [Mass/Vol] 8.0 g/dL Normal 6.4-8.2 [facility] Comment on above: Performed By: #### B SPIKE DRIVER, TSH, CMP #### [facility] [address] [place] [address] Dr. Noreen Tao Sodium [Moles/Vol] 140 mmol/L Normal 136-145 [facility] Comment on above: Performed By: #### B SPIKE DRIVER, TSH, CMP #### [facility] [address] [place] [address] Dr. Noreen Tao Urea nitrogen [Mass/Vol] 20.0 mg/dL Critically high 7.0-18.0 [facility] Comment on above: Performed By: #### B SPIKE DRIVER, TSH, CMP #### [facility] [address] [place] [address] Dr. Noreen Tao Urea nitrogen/Creatinine [Mass ratio] 10.1 mg/mg Normal [facility] Comment on above: Performed By: #### B SPIKE DRIVER, TSH, CMP #### [facility] [address] [place] [address] Dr. Noreen Tao TSHon 06-11-2022 TSH 77.632 uIU/mL Critically high 0.358-3.740 [facility] Comment on above: Performed By: #### B SPIKE DRIVER, TSH, CMP #### [facility] [address] [place] [address] Dr. Noreen Tao A1C HEMOGLOBINon 07-10-2021 HbA1c (Bld) [Mass fraction] 7.5 % [employer] Other Glucose - FING[facility] [employer] Glucose [Mass/Vol] 159 mg/dL [facility] Other HbA1c (Bld) [Mass fraction]o n 07-10-2021 A1C HEMOGLOBIN [employer] Other A1C HEMOGLOBINon 04-01-2021 HbA1c (Bld) [Mass fraction] 7.5 % [employer] Other Glucose - [employer]ING[employer] Glucose [Mass/Vol] 101 mg/dL [employer] [facility] Other HbA1c (Bld) [Mass fraction]o n 04-01-2021 A1C HEMOGLOBIN [employer] Other A1C HEMOGLOBINon 12-24-2020 HbA1c (Bld) [Mass fraction] 9.2 % [employer] Other Glucose - FINGER STICKon Glucose [Mass/Vol] 185 mg/dL [employer] [facility] Other HbA1c (Bld) [Mass fraction]o n 12-24-2020 A1C HEMOGLOBIN [employer] Other Vital Signs Date Time Vital Sign Value Performing Clinician Facility 06-22-2023 09:040 Body height 170.18 cm [facility] 06-22-2023 09:0400 Body mass index (BMI) [Ratio] 34.7 kg/m2 [facility] 06-22-2023 09:0400 Body weight 100.69 kg [facility] 06-22-2023 09:220400 Diastolic blood pressure 67 mm[Hg] [facility] 06-22-2023 09:22-0400 Heart rate 63 /min [facility] 06-22-2023 09:22-0400 Respiratory rate 18 /min [facility] 06-22-2023 09:22-0400 SaO2% (BldA) [Mass fraction] 96 % [facility] 06-22-2023 09:22-0400 Systolic blood pressure 117 mm[Hg] [facility] 06-10-2023 11:30-0400 Body height 170.18 cm [facility] 06-10-2023 11:30-0400 Body mass index (BMI) [Ratio] 34.3 kg/m2 [facility] 06-10-2023 11:30-0400 Body temperature 97.4 [degF] [facility] 06-10-2023 11:30-0400 Body weight 99.39 kg [facility] 06-10-2023 11:30-0400 Diastolic blood pressure 78 mm[Hg] [facility] 06-10-2023 11:30-0400 Heart rate 69 /min [facility] 06-10-2023 11:30-0400 SaO2% (BldA) [Mass fraction] 94 % [facility] 06-10-2023 11:30-0400 Systolic blood pressure 124 mm[Hg] [facility] 04-21-2023 12:52-0500 Body height 168.9 cm Ángel Keita DO Work Phone: [facility] 04-21-2023 12:52-0500 Body mass index (BMI) [Ratio] 35.42 kg/m2 Ángel Keita DO Work Phone: [facility] 04-21-2023 12:52-0500 Body weight 101.06 kg Ángel Keita DO Work Phone: [facility] 04-21-2023 12:52-0500 Diastolic blood pressure 54 mm[Hg] Ángel Keita DO Work Phone: [facility] 04-21-2023 12:52-0500 Heart rate 85 /min Ángel Keita DO [facility] 04-21-2023 12:52-0500 Systolic blood pressure 124 mm[Hg] Ángel Keita Work Phone: [facility] 02-08-2023 14:00-0500 Body height 170.18 cm Cheryl Zimmerman Other [facility] 02-08-2023 14:00-0500 Body mass index (BMI) [Ratio] 34.3 kg/m2 Cheryl Zimmerman Other [facility] [employer] Other 02-08-2023 14:00-0500 Body weight 99.34 kg Cheryl Zimmerman Other [facility] [employer] Other 02-08-2023 14:00-0500 Body weight 99.33 kg MD Cheryl Zimmerman Work Phone: [facility] 02-08-2023 14:00-0500 Diastolic blood pressure 83 mm[Hg] Cherly Zimmerman Other [facility] 02-08-2023 14:00-0500 Systolic blood pressure 134 mm[Hg] Cheryl Zimmerman Other [facility] 02-01-2023 15:00-0500 Body height 170.18 cm Tondra Mapus Other [facility] 02-01-2023 15:00-0500 Body mass index (BMI) [Ratio] 34.72 kg/m2 Tondra Mapus Other [facility] [employer] Other 02-01-2023 15:00-0500 Body weight 100.56 kg Tondra Mapus Other [facility] 02-01-2023 15:00-0500 Diastolic blood pressure 45 mm[Hg] Tondra Mapus Other [facility] 02-01-2023 15:00-0500 Respiratory rate 18 /min Tondra Mapus Other [employer] Other 02-01-2023 15:00-0500 SaO2% (BldA) [Mass fraction] 96 % Tondra Mapus Other [employer] Other 02-01-2023 15:00-0500 Systolic blood pressure 86 mm[Hg] Tondra Mapus Other [facility] 11-26-2022 08:15-0400 Body height 170.18 cm Tondra Mapus Other [employer] Other 11-26-2022 08:15-0400 Body mass index (BMI) [Ratio] 34.52 kg/m2 Tondra Mapus Other [employer] Other 11-26-2022 08:15-0400 Body weight 99.97 kg Tondra Mapus Other [employer] Other 11-26-2022 08:15-0400 Diastolic blood pressure 72 mm[Hg] Tondra Mapus Other [employer] Other 11-26-2022 08:15-0400 Respiratory rate 18 /min Tondra Mapus Other [employer] Other 11-26-2022 08:15-0400 SaO2% (BldA) [Mass fraction] 99 % Tondra Mapus Other [employer] Other 11-26-2022 08:15-0400 Systolic blood pressure 110 mm[Hg] Tondra Mapus Other [employer] Other 10-21-2022 08:15-0400 Body height 170.18 cm Tondra Mapus Other [employer] Other 10-21-2022 08:15-0400 Body mass index (BMI) [Ratio] 34.53 kg/m2 Tondra Mapus Other [employer] Other 10-21-2022 08:15-0400 Body weight 100.02 kg Tondra Mapus Other [employer] Other 10-21-2022 08:15-0400 Diastolic blood pressure 69 mm[Hg] Tondra Mapus Other [employer] Other 10-21-2022 08:15-0400 Respiratory rate 18 /min Tondra Mapus Other [employer] Other 10-21-2022 08:15-0400 SaO2% (BldA) [Mass fraction] 96 % Tondra Mapus Other [employer] Other 10-21-2022 08:15-0400 Systolic blood pressure 103 mm[Hg] Tondra Mapus Other [employer] Other 10-13-2022 14:00-0400 Body height 170.18 cm Cheryl Zimmerman Other [employer] Other 10-13-2022 14:00-0400 Body mass index (BMI) [Ratio] 34.61 kg/m2 Cheryl Zimmerman Other [employer] Other 10-13-2022 14:00-0400 Body weight 100.25 kg Cheryl Zimmerman Other [employer] Other 10-13-2022 14:00-0400 Diastolic blood pressure 62 mm[Hg] Cheryl Zimmerman Other [employer] Other 10-13-2022 14:00-0400 Systolic blood pressure 116 mm[Hg] Cheryl Zimmerman Other [employer] Other 04-21-2022 15:00-0500 Body height 170.18 cm Cheryl Zimmerman Other [employer] Other 04-21-2022 15:00-0500 Body mass index (BMI) [Ratio] 36.18 kg/m2 Cheryl Zimmerman Other [employer] Other 04-21-2022 15:00-0500 Body weight 104.78 kg Cheryl Zimmerman Other [employer] Other 04-21-2022 15:00-0500 Diastolic blood pressure 80 mm[Hg] Cheryl Zimmerman Other [employer] Other 04-21-2022 15:00-0500 SaO2% (BldA) [Mass fraction] 99 % Cheryl Zimmerman Other [employer] Other 04-21-2022 15:00-0500 Systolic blood pressure 132 mm[Hg] Cheryl Zimmerman Other [employer] Other 07-10-2021 10:45-0400 Body height 170.18 cm Tondra Mapus Other [employer] Other 07-10-2021 10:45-0400 Body mass index (BMI) [Ratio] 33.98 kg/m2 Tondra Mapus Other [employer] Other 07-10-2021 10:45-0400 Body weight 98.43 kg Tondra Mapus Other [employer] Other 07-10-2021 10:45-0400 Diastolic blood pressure 83 mm[Hg] Tondra Mapus Other [employer] Other 07-10-2021 10:45-0400 Respiratory rate 20 /min Tondra Mapus Other [employer] Other 07-10-2021 10:45-0400 SaO2% (BldA) [Mass fraction] 98 % Tondra Mapus Other [employer] Other 07-10-2021 10:45-0400 Systolic blood pressure 166 mm[Hg] Tondra Mapus Other [employer] Other 04-01-2021 10:15-0500 Body height 170.18 cm Tondra Mapus Other [employer] Other 04-01-2021 10:15-0500 Body mass index (BMI) [Ratio] 33.98 kg/m2 Tondra Mapus Other [employer] Other 04-01-2021 10:15-0500 Body weight 98.43 kg Tondra Mapus Other [employer] Other 04-01-2021 10:15-0500 Diastolic blood pressure 76 mm[Hg] Tondra Mapus Other [employer] Other 04-01-2021 10:15-0500 Respiratory rate 16 /min Tondra Mapus Other [employer] Other 02-01-2022 10:15-0500 SaO2% (BldA) [Mass fraction] 98 % Tondra Mapus Other [employer] Other 04-01-2021 10:15-0500 Systolic blood pressure 144 mm[Hg] Tondra Mapus Other [employer] Other 01-07-2021 09:30-0500 Body height 170.18 cm Tondra Mapus Other [employer] Other 01-07-2021 09:30-0500 Body mass index (BMI) [Ratio] 34.83 kg/m2 Tondra Mapus Other [employer] Other 01-07-2021 09:30-0500 Body weight 100.88 kg Tondra Mapus Other [employer] Other 01-07-2021 09:30-0500 Diastolic blood pressure 64 mm[Hg] Tondra Mapus Other [employer] Other 01-07-2021 09:30-0500 Respiratory rate 18 /min Tondra Mapus Other [employer] Other 01-07-2021 09:30-0500 SaO2% (BldA) [Mass fraction] 98 % Tondra Mapus Other [employer] Other 01-07-2021 09:30-0500 Systolic blood pressure 135 mm[Hg] Tondra Mapus Other [employer] Other 01-06-2021 10:30-0500 Body height 170.18 cm Tondra Mapus Other [employer] Other 01-06-2021 10:30-0500 Body mass index (BMI) [Ratio] 34.83 kg/m2 Tondra Mapus Other [employer] Other 01-06-2021 10:30-0500 Body weight 100.88 kg Tondra Mapus Other [employer] Other 01-06-2021 10:30-0500 Diastolic blood pressure 79 mm[Hg] Tondra Mapus Other [employer] Other 01-06-2021 10:30-0500 Respiratory rate 18 /min Tondra Mapus Other [employer] Other 01-06-2021 10:30-0500 SaO2% (BldA) [Mass fraction] 98 % Tondra Mapus Other [employer] Other 01-06-2021 10:30-0500 Systolic blood pressure 143 mm[Hg] Tondra Mapus Other [employer] Other 12-24-2020 09:15-0400 Body height 170.18 cm Tondra Mapus Other [employer] Other 12-24-2020 09:15-0400 Body mass index (BMI) [Ratio] 34.61 kg/m2 Tondra Mapus Other [employer] Other 12-24-2020 09:15-0400 Body weight 100.25 kg Tondra Mapus Other [employer] Other 12-24-2020 09:15-0400 Diastolic blood pressure 78 mm[Hg] Tondra Mapus Other [employer] Other 12-24-2020 09:15-0400 Respiratory rate 16 /min Tona Davidus Other [employer] Other 12-24-2020 09:15-0400 SaO2% (BldA) [Mass fraction] 97 % Tondra Davidus Other [employer] Other 12-24-2020 09:15-0400 Systolic blood pressure 122 mm[Hg] Tawandadra Mapus Other [employer] Other Encounters Encounter Date Encounter Type Care Provider Facility Start: 06-22-2023 End: 06-22-2023 ambulatory [facility] Work Phone: Start: 06-22-2023 End: 06-22-2023 Patient encounter procedure [facility] Work Phone: Start: 06-10-2023 End: 06-10-2023 ambulatory [facility] Work Phone: Start: 06-10-2023 End: 06-10-2023 Patient encounter procedure [facility] Work Phone: Start: 05-17-2023 Telephone encounter [facility]allpa [facility] Start: 05-17-2023 End: 05-18-2023 ambulatory ÁNGEL KEITA [facility] Start: 05-03-2023 Orders Only Khalida Hernandez RMA [facility] Comment on above: Right lower quadrant abdominal swelling Start: 04-25-2023 Orders Only Ángel perez DO Work Phone: [facility] In Start: 04-23-2023 Telephone encounter Ana Koehler CMA [facility] Start: 04-22-2023 Non-patient / Non-visit [facility] Work Phone: Start: 04-21-2023 End: 04-21-2023 ambulatory ÁNGEL Gisele SMITHCelso [facility] Start: 04-21-2023 End: 04-21-2023 Office outpatient new 30 minutes Ángel Keita DO Work Phone: [facility] Comment on above: Right lower quadrant abdominal swelling (Primary Dx); Class 3 severe obesity due to excess calories with serious comorbidity in adult, unspecified BMI ([facility]); History of insulin dependent diabetes mellitus; Type 2 diabetes mellitus without complication, unspecified whether group home insulin use ([facility]); Stage 3a chronic kidney disease (CKD) ([facility]); 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 ([facility]) Start: 03-26-2023 Refill Luna Prater RN PHN [facility] Start: 03-25-2023 ambulatory CHERYL ZIMMERMAN [facility] Start: 03-17-2023 End: 03-17-2023 ambulatory Tondra Mapus Other [employer] Other Start: 03-17-2023 Telephone encounter Jerrell Merchant [facility] Start: 02-25-2023 End: 02-25-2023 ambulatory Cheryl Zimmerman Other [employer] Other Start: 02-25-2023 Telephone encounter Cheryl Zimmerman [facility] Start: 02-08-2023 End: 02-08-2023 ambulatory Cheryl Zimmerman Other [employer] Other Start: 02-08-2023 Office outpatient vi sit 15 minutes Cheryl Zimmerman [facility] Start: 02-08-2023 End: 02-08-2023 Patient encounter procedure MD Cheryl Zimmerman Work Phone: [facility] Work Phone: Start: 02-03-2023 End: 02-03-2023 ambulatory Tondra Mapus Other [employer] Other Start: 02-03-2023 Telephone encounter Tondra Mapus [facility] Start: 02-01-2023 End: 02-01-2023 Discharged Recurring MD Cheryl Zimmerman [facility] Work Phone: Start: 02-01-2023 (DM) Diabetes Tondra Mapus [facility] Start: 02-01-2023 End: 02-02-2023 ambulatory MD Cheryl Zimmerman Work Phone: [employer] Other Start: 02-01-2023 End: 02-01-2023 Patient encounter procedure MD Cheryl Zimmerman Work Phone: [facility] Work Phone: Start: 11-26-2022 (DM) Diabetes Tondra Mapus [facility] Start: 11-26-2022 End: 11-26-2022 ambulatory Tondra Mapus Other [employer] Other Start: 10-21-2022 (DM) Diabetes Tondra Mapus [facility] Start: 10-21-2022 End: 10-21-2022 ambulatory Tondra Mapus Other [employer] Other Start: 10-13-2022 End: 10-13-2022 ambulatory Cheryl Zimmerman Other [employer] Other Start: 10-13-2022 Office outpatient vi sit 25 minutes Cheryl Zimmerman [facility] Start: 07-13-2022 End: 07-14-[address] CHERYL ZIMMERMAN Facility: Start: 07-09-2022 End: 07-10-2022 ambulatory TONDRA MAPUS [facility] [employer] Other Start: 07-09-2022 Telephone encounter Tondra Mapus [facility] Start: 06-12-2022 End: 06-12-2022 ambulatory Cheryl Zimmerman Other [employer] Other Start: 06-12-2022 Telephone encounter Cheryl Elsie [facility] Start: 06-11-2022 End: 06-12-[address] CHERYL ZIMMERMAN Facility: Start: 05-01-2022 End: 05-01-2022 ambulatory Cheryl Zimmerman Other [employer] Other Start: 05-01-2022 Telephone encounter Cheryl Elsie [facility] Start: 04-21-2022 End: 04-21-2022 ambulatory Cheryl Zimmerman Other [employer] Other Start: 04-21-2022 Office outpatient vi sit 15 minutes Cheryl Zimmerman [facility] Start: 09-18-2021 Adult health examination Cheryl Elsie Other [employer] Other Start: 09-18-2021 Problem, abnormal examination Cheryl Elsie Other [employer] Other Start: 07-10-2021 (DM) Diabetes [facility] Start: 07-10-2021 End: 07-10-2021 ambulatory Tondra Mapus Other [employer] Other Start: 04-01-2021 (DM) Diabetes [facility] Start: 04-01-2021 End: 04-01-2021 ambulatory Tondra Mapus Other [employer] Other Start: 01-07-2021 End: 01-07-2021 ambulatory Tondra Mapus Other [employer] Other Start: 01-07-2021 Nursing evaluation o f patient and report [facility]ond[facility] Map[facility] Start: 01-06-2021 End: 01-06-2021 ambulatory Jerrell Merchant Other [employer] Other Start: 01-06-2021 Nursing evaluation o f patient and [facility] Start: 01-06-2021 Telephone encounter Jerrell Savage [facility] Start: 12-24-2020 (DM) Diabetes Jerrell Merchant [facility] Procedures Date Procedure Procedure Detail Performing Clinician Start: 04-22-2023 Creatinine blood Elizabeth Keita DO Work Phone: Start: 10-04-2019 Colonoscopy Luna ascencio RN Start: 05-04-2017 Screening for malign ant neoplasm of colon Cheryl Zimmerman Other Plan of Treatment Date Care Activity Detail Author Start: 2024 Screening for malign ant neoplasm of colon Colonoscopy [facility] Start: 05-16-2024 Tobacco Screening Tobacco Screening [facility] Start: 04-21-2024 Adult BMI Screening Adult BMI Screen [facility] Start: 04-21-2024 Tobacco Screening Tobacco Screening [facility] Start: 12-30-2023 Adult BMI Screening Adult BMI Screen ing [facility] Start: 12-30-2023 Tobacco Screening Tobacco Screening [facility] Start: 06-10-2023 Patient referral [facility] Work Phone: Start: 05-17-2023 End: 05-17-2023 Patient encounter procedure 05/17/2023 8:00 AM EDT Appointment [facility] [address] [place] [address] Ángel Keita DO [address] [place] [address] [facility] Start: 04-21-2023 End: 04-20-2024 CT Abdomen and Pelvis W contrast IV CT abdomen and pelvis with contrast Imaging Routine Right lower quadrant abdominal swelling Expected: 04/21/2023, Expires: 04/20/2024 [facility] Comment on above: Expected: 04/21/2023 , Expires: 04/20/2024 Start: 04-14-2023 End: 04-14-2023 Patient encounter procedure 04/14/2023 2:30 PM EST Office Visit [facility] [address] [place] [id number] Elsy Rowe, COLD PATCHER-SERVICE TECH/WELDER [address] [place] [address] [facility] Start: 10-30-2022 COVID-19 Vaccine ( season) COVID-19 Vaccine ( season) [facility] Start: 10-30-2022 Influenza vaccination Influenza Vacc ine [facility] Start: 10-02-2020 Fall Risk Screening Fall Risk Screen ing [facility] Start: 10-02-2005 Administration of varicella zoster vaccine Zoster (Shingles) Vaccine (1 of 2) [facility] Start: 10-02-1974 DTaP,Tdap and Td Vaccines (1 - Tdap) DTaP,Tdap and Td Vaccines (1 - Tdap) [facility] Start: 10-02-1973 Adult BMI Follow Up Plan Adult BMI Follow Up Plan [facility] Start: 10-02-1973 Diabetic foot examination Diabetic Foot Exam [facility] Start: 1967 Depression Screening Depression Scre ening [facility] Start: 1955 Glaucoma screening Diabetic Op hthalmology Exam [facility] Start: 1955 Medicare Annual Well ness Visit Medicare Annual Wellness Visit [facility] Comprehensive metabo lic 2000 panel - Serum or Plasma [facility] End: 04-21-2024 Creatinine includes GFR, serum Creatinine includes GFR, serum Lab Routine Right lower quadrant abdominal swelling 1 Occurrences starting 04/21/2023 until 04/21/2024 [facility]: Comment on above: 1 Occurrences starti ng 04/21/2023 until 04/21/2024 Insulin C-peptide measurement [facility] referral [facility] Work Phone: [facility] Immunizations Immunization Date Immunization Notes Care Provider Dayanna winn 06-27-2020 COVID-19 Vaccine Ashley - Documentation Purposes Only Jerrell Merchant Other [facility] 12-05-2019 influenza virus vaccine, split virus (incl. purified surface antigen) Cheryl Zimmerman Other [employer] Other 12-05-2019 influenza virus vaccine, unspecified formulation MD Cheryl Zimmerman Work Phone: [facility] Payers Date Payer Category Payer Medicare AETNA MEDICARE A ETNA MEDICARE PLAN (HMO) [id number] 2022-Present [phone] [address] [place] [address] [id number] 2021 Private Health Insurance [id number] 2021 Unknown [id number] 2020 Blue Cross Blue Shield [id number] 2020 Unknown [id number] 2017 Self-pay [id number] 2006 Blue Cross Blue Shield [id number] 1959 Medicare [id number] 1955 Unknown [id number] 593 1955 Unknown [id number]. 593 1955 Unknown [id number] 593 1955 Unknown [id number] 1286 1955 Unknown [id number]. 1286 1955 Unknown [id number] 1286 Medicare [id number] Medicare [id number] Private Health Insurance [facility] [id number] Unknown [id number] 531 Social History Date Type Detail Facility Unknown if ever smoked [employer] Other Start: 03-22-2020 End: 12-29-2022 Sex Assigned At [facility] Other Start: 11-16-2022 End: 06-22-2023 Tobacco smoking status CAIS Ex-smoker [facility] End: 03-01-2003 History of tobacco use Current smoker [facility] End: 03-01-2003 History of tobacco use Cigarette Smoker [facility] Start: 03-22-2020 End: 11-16-2022 Cigarettes smoked current (pack per day) - Reported 0.5 [facility] Start: 11-16-2022 End: 04-21-2023 Tobacco use and exposure Smokeless tobacco non-user [facility] Start: 12-29-2022 End: 05-17-2023 Alcohol intake Current non-drinker of alcohol (finding) [facility] Childcare Unknown [facility] Start: 11-16-2022 Tobacco Comment Quit in 2002. [facility] Start: 1955 [facility] Start: 1955 Sex Assigned At Male F [facility] Medical Equipment Procedure Code Equipment Code Equipment Origin al Text Equipment Identifier Dates Start: 02-24-2018 Clinical Notes 12-24-2020 to 05-17-2023 Telephone Encounter - Kamilla Guallpa CMA - 05/17/2023 2:05 PM EDTTelephone Encounter - Kamilla Guallpa, [facility]ILL[facility] - 05/17/2023 2:05 PM EDTTelephone Encounter - Kamilla Guallpa, [facility] - 05/17/2023 2:05 PM EDT Note Date [...] Dr. Zimmerman. documented in this encounter [facility] 05-17-2023 Telephone encounter Note ----- Message from [...] and a heart attack. Thanks, Dr. [facility]23 Telephone encounter Note Informed patient of the CT Abdomen and Pelvis performed 05/17/23. Patient verbally understood with no further questions. Per patient request, I will send results to Dr. Zimmerman. [facility] 04[facility]23[facility] Keita ordered a CT with contrast for the patient. He has had a rash in the past, that was caused by Iodinated contrast during imaging. [facility] Radiology recommends that the patient be treated [...] came from Jess at [employer]. # [phone]. Thanks!! Ana ----- Message from Ángel Keita [...] past, caused by the contrast during imaging. [facility] Radiology recommends that the patient be treated [...] came from Jess at [employer]. # [phone]. Thanks!! Ana I spoke to the patient. Mr. Hussein will fruit picker the Prednisone prescription which Dr Keita sent in. He'll also fruit picker the Benadryl OTC. I had him write down the instructions, which were passed on to [employer]. documented in this encounter [facility] 04-23-[address] Keita ordered a CT with contrast for the patient. He has had a rash in the past, that was caused by Iodinated contrast during imaging. [facility] Radiology recommends that the patient be treated [...] came from Jess at [employer]. # [phone]. Thanks!! [facility] Telephone encounter Note ----- Message from [...] past, caused by the contrast during imaging. [facility] Radiology recommends that the patient be treated [...] came from Jess at [employer]. # [phone]. Thanks!! Ana [facility] 04-23-2023 Telephone encounter Note I spoke to the patient. Mr. Hussein will fruit picker the Prednisone prescription which Dr Keita sent in. He'll also fruit picker the Benadryl OTC. I had him write down the instructions, which were passed on to [facility]. [facility] 04-21-2023 History of Present illness Narrative Images from the original note were not included. [facility] [address] [place] [phone] CONSULT NOTE Rogelio Albrightnavi 67 y.o. CHIEF [...] Diagnosis Date Coronary artery disease Diabetes mellitus ([facility]) Diabetes mellitus type 2, controlled ([facility]) Hyperlipidemia Hypertension Hypothyroidism SURGICAL HISTORY Past Surgical [...] patient/family/caregiver Referring and communicating with other health dog daycare provider Right lower quadrant abdominal swelling [R19.03] Ángel [...] for your understanding. [facility] Evaluation note Encounter Date Diagnosis Assessment Notes Jan, Right lower quadrant abdominal pain (ICD-10 - R10.31) [employer] Other 12-11-2023 Evaluation note* Encounter Date Diagnosis Assessment Notes Treatment Notes Treatment Clinical Notes Jan, Abdominal mass, right lower quadrant (ICD-10 - R19.03) agrees to US to assess. Discussed differential including hernia Jan, Benign essential HTN (ICD-10 - I10) BP presently normal. Denies symptoms of hypotension, will monitor [facility] Other 12-04-2023 Evaluation note* Encounter Date Diagnosis [...] DE instructed on application/and set up with janitor and cleaner today. 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 dizzy, lightheaded. Recommend f/u with pcp for further evaluation [facility] Other 09-28-2023 Evaluation note* Encounter Date Diagnosis [...] Pt verbalizes understanding. Pt brought dexcom g7 janitor and cleaner/sensor with him today asking for instruction on [...] DE instructed on application/and set up with janitor and cleaner today. Oct, Hyperlipidemia (ICD-10 - E78.5) Managing your cholesterol material was published 06/2022 ldl 60 at target on statin Oct, HTN (hypertension) (ICD-10 - I10) Managing high blood pressure material was published on maryse Oct, FDC current use of insulin (ICD-10 - Z79.4) Oct, BMI 34.0-34.9,adult (ICD-10 - Z68.34) Setting weight-loss goals material was published [facility] Other 08-23-2023 Evaluation note* Encounter Date Diagnosis [...] is asking medication refill be sent to [facility]. Pt reports he did restart trulicity 3mg [...] or diabetes medication issues. 6. Prescriptions: [facility], Trulicity, Novolog, pen needles sent 10/21/22 7. [...] pressure material was published on maryse Sep, FDC current use of insulin (ICD-10 - Z79.4) Sep, BMI 34.0-34.9,adult (ICD-10 - Z68.34) Setting weight-loss goals material was published [employer] [facility] Other 08-15-2023 Evaluation note* Encounter Date Diagnosis [...] on the machine. Pt is established w [facility] - will notify their office. Pt given samples of Eliquis and will hopefully see their providers soon. Last creatinine was 1.5. 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 Will first start with completely stopping the Trulicity and monitoring symptoms. Will call on 05/01 as he just took med on 04/20. Apr, Diarrhea, unspecified (ICD-10 - R19.7) [facility] Other 05-12-2022 Evaluation note* Encounter Date Diagnosis [...] 7.5% 2. Blood glucose levels according to [employer] g6 cgm download 06/27/2021- 2: Avg glucose [...] pressure material was published on maryse June, FDC current use of insulin (ICD-10 - Z79.4) June, BMI 33.0-33.9,adult (ICD-10 - Z68.33) Deciphering the nutrition facts label material was published June, Rachell Mercado got a new phone and it is not compatible with The Dexcom G6 franklin. He is currently using a dexcom janitor and cleaner and carries it in his back pocket. I advised him to not carry it in his back pocket because it could damage the device. He was shown a belt clip on Hunie that he can place on the back of the device and wear it on his belt. [facility] Other 02-01-2022 Evaluation note* Encounter Date Diagnosis [...] pressure material was published on maryse Apr, FDC current use of insulin (ICD-10 - Z79.4) Apr, BMI 33.0-33.9,adult (ICD-10 - Z68.33) 5 pound weight loss from last visit, continue with weight loss efforts [facility] Other 11-09-2021 Evaluation note* Encounter Date Diagnosis [...] fingerstick if not feeling well or if janitor and cleaner prompts to calibrate. 30 minutes was spent on education by Aldair GONZALEZ, RN [facility] Other 11-08-2021 Evaluation note* Encounter Date Diagnosis Assessment Notes Treatment Notes Treatment Clinical Notes Dec, Type 2 diabetes mellitus with hyperglycemia (ICD-10 - E11.65) Reviewed dexcom g6 download 12/21/2020-2020: Avg glucose 170. >250-3%, >180-33%, 70-180-63%, <70-1%, <54-0%. Will modify corrective scale. [employer] COLD PATCHER, CELL ROOM SUPERVISOR-C, BC-ADM Patient in today for review of [...] and application. Assisted patient to downlioad Basim adicate timeadsyle franklin on cell phone. Instructed patient to [...] spent on education by Ayah GONZALEZ, RN. [facility] Other 10-26-2021 Evaluation note* Encounter Date Diagnosis [...] pen needles, lancets, test strips sent to [facility] Sample dexcom g6 cgm/transmitter and novolog u100 pen with pen needles given today. 7. Return in 10 days for dexcom g6 download, review. 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 Instructed to return in 10 days for follow up. 30 minutes was spent on education by Aldair GONZALEZ, RN. 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 ([facility]) Stage 3a chronic kidney disease (CKD) ([facility]) 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 ([facility]) [facility] Diagnosis Right lower quadrant abdominal swelling [facility] Diagnosis Onset Date Resolution Status Hypothyroidism, unspecified acute [facility] Work Phone: Evaluation note* Diagnosis Onset Date Resolution Status Bronchitis acute Fatty liver disease, nonalcoholic acute Hypothyroidism, unspecified acute Dietary counseling and surveillance acute Hyperlipidemia acute Hypertension acute Type 2 diabetes mellitus acu te [facility] Work Phone: History general Narrative - Reported* Type Description Date Medical History heart disease Medical History diabetes mellitus Medical History hyperlipidemia Medical History CRF stage 3 Medical History thyroid disease Surgical History heart stent Surgical History gall bladder Surgical History appendectomy Surgical History Neck Surgery Surgical History colonoscopy 09/2019 Hospitalization History See above Hospitalization History Irregular heartbeat 12/30 8 [facility] Other InstructionsNot on filedocumented in this encounter [facility] filedocumented in this encounter [facility] [...] pelvis with contrast Ángel Keita DO [address] [place] [address] [address] Phone: [phone] Referral ID Status Reason Start Date Expiration Date V isits Requested Visits Authorized [id number] Pending Review 04/21/2023 04/20/2024 1 1 Reason *FU 03/30 last OV and scan. Diagnosis 1 Right lower quadrant abdominal pain (R10.31) Referral Organization [facility] Janett gould Referring Provider First Name Cheryl Referring Provider Last Name Elsie Referring Provider Specialty Family [facility] Referred Organization [facility] Referred Provider Ángel Keita Referred Address [address],[place], [place],[address] Referred Provider Specialty Surgery Referral Priority Routine General Notes Emmy Mendez 04:46:33 PM >received today, attachments made, notes locked, referral faxed Clinical Notes p:[phone] f: [phone] Chief Complaint and Reason for Visit Chief [...] DATE CREATED AUTHOR AUTHOR'S ORGANIZ ATION 04/15/2023 [facility] DATE CREATED AUTHOR AUTHOR'S ORGANIZ ATION 04/29/2023 [facility] DATE CREATED AUTHOR AUTHOR'S ORGANIZ ATION 05/18/2023 [facility] Care Teams (unrecognized sec tion and content) [...] June 10, 2023 End: June 10, 2023 [employer] Relationship Specialty Start Date End Date Cheryl Zimmerman MD [address] [place] [address] PCP - General 05/21/17 Team Status: Inactive [...] February 08, 2023 End: February 08, 2023 [employer] Relationship Specialty Start Date End Date Cheryl Zimmerman MD [address] [place] [address] PCP - General 05/21/17 [employer] Relationship Specialty Start Date End Date Cheryl Zimmerman MD [address] [place] [address] [phone] PCP - General 05/21/17 [employer] Relationship Specialty Start Date End Date Cheryl Zimmerman MD [address] [place] [id number] PCP - General 05/21/17 [employer] Relationship Specialty Start Date End Date Cheryl Zimmerman MD [address] [place] [address] [phone] PCP - General 05/21/17 [employer] Relationship Specialty Start Date End Date Cheryl Zimmerman MD [address] [place] [address] [phone] PCP - General 05/21/17 Team Status: Inactive [...] BE BASED ON THE PRIMARY CLINICAL RECORDS. [employer] [facility]. provides no warranty or guarantee of the accuracy or completeness of information in this document.
[2023-06-24 08:48] LABS: Creatinine Urine Random 20.38 mg/dL (20.00-300.00); Microalbum Creatinine Ratio Ur 63.7 mg/g (0.0-29.9); Microalbumin Urine Random <1.3 mg/dL (<=30.0)
[2023-06-24 08:51] LABS: Alanine Aminotransferase 25 U/L (16-63); Albumin Globulin Ratio 0.9; Albumin Level 3.5 g/dL (3.4-5.0); Alkaline Phosphatase 82 U/L (46-116); Aspartate Amino Transferase 16 U/L (15-37); BUN Creatinine Ratio 20.5; Bilirubin Total 0.4 mg/dL (0.2-1.0); Calcium 9.7 mg/dL (8.5-10.1); Carbon Dioxide 32.5 mmol/L (21.0-32.0); Chloride 101 mmol/L (98-107); Chol HDL Ratio 4.3; Cholesterol 177 mg/dL (<=200); Estimated GFR (African America 33 (>=60); Estimated GFR (Non-African Ame 27 (>=60); Globulin 4.1 g/dL; Glucose 171 mg/dL (74-106); HDL Cholesterol 41 mg/dL (40-60); Potassium 4.5 mmol/L (3.5-5.1); Sodium 142 mmol/L (136-145); Total Protein 7.6 g/dL (6.4-8.2); Triglycerides 219 mg/dL (<=150); VLDL CHOLESTEROL 43.8 mg/dL
[2023-06-25 12:09] LABS: C-Peptide, Serum 1.6 ng/mL (1.1-4.4)
== END 2023-06-24 07:56 | disposition home or self-care (01) ==
LOC: LAB 07:56
PROVIDERS: PCP Family Medicine
DX: E03.9 Hypothyroidism, unspecified (principal); E11.22 Type 2 diabetes mellitus with diabetic chronic kidney disease; N18.32 Chronic kidney disease, stage 3b; Z79.4 Long term (current) use of insulin; E78.5 Hyperlipidemia, unspecified
CPT/HCPCS: 36415; 80053; 80061; 82043; 82570; 84439; 84443; 84681